=== PATIENT | male | born 1940 | race Caucasian/White ===

== ENCOUNTER → 2023-08-09 06:50 | Outpatient (REF) | payer MEDICARE, OTHER, SELFPAY ==
[2023-08-09 07:48] LABS: HDL Cholesterol 52 mg/dl; LDL Cholesterol, Calculated 39 mg/dl; Total Cholesterol 106 mg/dl (50-199); Triglyceride 78 mg/dl (10-149); Very Low Density Lipoprotein 15 mg/dl (0-30)
== END ==
LOC: REG 06:50
PROVIDERS: ATTENDING PHYSICIAN Internal Medicine
DX: E78.5 Hyperlipidemia, unspecified (principal); I65.22 Occlusion and stenosis of left carotid artery
CPT/HCPCS: 36415; 80061

== ENCOUNTER → 2023-09-07 10:50 | Outpatient (REF) | payer MEDICARE, OTHER, SELFPAY | LOC: RAD 10:50 | PROVIDERS: ATTENDING PHYSICIAN Internal Medicine; FAMILY PHYSICIAN Physician Assistant Medical | DX: I65.22 Occlusion and stenosis of left carotid artery (principal) | CPT/HCPCS: 93880 ==

== ENCOUNTER → 2023-09-23 06:41 | Outpatient (REF) | payer MEDICARE, OTHER, SELFPAY ==
[2023-09-23 08:38] LABS: Blood Urea Nitrogen 14 mg/dl (9-20); Calcium 9.6 mg/dl (8.4-10.2); Carbon Dioxide 29 mmol/L (22-30); Chloride 105 mmol/L (98-107); Glucose 90 mg/dl (70-99); Potassium 3.9 mmol/L (3.5-5.1); Sodium 141 mmol/L (135-145); eGFR > 60.00
== END ==
LOC: REG 06:41
PROVIDERS: ATTENDING PHYSICIAN Surgery Vascular Surgery; FAMILY PHYSICIAN Physician Assistant Medical
DX: I65.22 Occlusion and stenosis of left carotid artery (principal)
CPT/HCPCS: 36415; 80048

== ENCOUNTER → 2023-09-28 09:10 | Outpatient (REF) | payer MEDICARE, OTHER, SELFPAY | LOC: HWRAD 09:10 | PROVIDERS: ATTENDING PHYSICIAN Surgery Vascular Surgery; FAMILY PHYSICIAN Physician Assistant Medical | DX: I65.22 Occlusion and stenosis of left carotid artery (principal) | CPT/HCPCS: 70496; 70498; Q9967 ==

== ENCOUNTER → 2023-10-05 10:38 | Outpatient (REF) | payer MEDICARE, OTHER, SELFPAY | LOC: DHCBC/DCA 10:38 | PROVIDERS: ATTENDING PHYSICIAN Internal Medicine; FAMILY PHYSICIAN Physician Assistant Medical | DX: I48.19 Other persistent atrial fibrillation (principal); I10 Essential (primary) hypertension; I44.4 Left anterior fascicular block; I65.22 Occlusion and stenosis of left carotid artery; I77.810 Thoracic aortic ectasia; Z95.818 Presence of other cardiac implants and grafts; I44.0 Atrioventricular block, first degree | CPT/HCPCS: 78452; 93017; A9500; J2785 ==

== ENCOUNTER → 2023-10-07 13:50 | Outpatient (REF) | payer MEDICARE, OTHER, SELFPAY ==
[2023-10-07 17:38] LABS: % Basophils 0.9 % (0-2); % Eosinophils 1.1 % (0-6); % Immature Granulocytes 0.4 % (0-0.5); % Lymphocytes 14.2 % (20.5-51.1); % Monocytes 12.2 % (1.7-9.3); % Neutrophils 71.2 % (42.2-75.2); Absolute Eosinophils 0.1 10^3/uL (0-0.7); Absolute Lymphocytes 0.7 10^3/uL (1.2-3.4); Absolute Monocytes 0.6 10^3/uL (0.1-0.6); Absolute Neutrophils 3.3 10^3/uL (1.4-6.5); Hematocrit 43.5 % (39.0-52.0); Hemoglobin 14.7 g/dL (13.0-18.0); Mean Corp Hgb Conc. 33.8 g/dL (33.0-37.0); Mean Corpuscular Hgb 30.2 pg (27.0-31.0); Mean Corpuscular Volume 89.5 fL (80.0-94.0); Nucleated Red Blood Cells % 0 % (-); Platelet Count 145 10^3/uL (130-400); Red Blood Cell Count 4.86 10^6/uL (4.70-6.10); Red Cell Dist. Width 14.6 % (11.5-14.5); White Blood Cell Count 4.6 10^3/uL (4.8-10.8)
== END ==
LOC: RAD 13:50
PROVIDERS: Internal Medicine Cardiovascular Disease; ATTENDING PHYSICIAN Surgery Vascular Surgery; FAMILY PHYSICIAN Physician Assistant Medical
DX: Z13.6 Encounter for screening for cardiovascular disorders (principal); R29.898 Other symptoms and signs involving the musculoskeletal system; R94.39 Abnormal result of other cardiovascular function study
CPT/HCPCS: 36415; 76770; 85025; 93922; 93925

== ENCOUNTER 2023-10-11 13:08 | Day surgery (SDC) | payer MEDICARE, OTHER, SELFPAY ==
[2023-10-11] VITALS (11 sets, daily range): BP systolic 113–130; BP diastolic 62–74; BMI 28.3
[2023-10-11] MEDS: NSS 245 ML IV (14:16)
--- NOTE | 2023-10-11 16:01 | ITS.CL.CATH ---
Professional Development Instructor - Catheterization
Cardiac Catheterization
Procedure Report:
CARDIAC CATHETERIZATION REPORT
Date of Procedure: 10/11/2023
Referring: Mark Rueda MD, PhD
Indication: Abnormal preop stress test prior to elective CEA, patient denies cardiac symptoms
HEMODYNAMIC DATA
AO: 148/76
LV: 148/16
LEFT VENTRICULOGRAPHY: Normal segmental wall motion with EF 54%
CORONARY ANGIOGRAPHY
Dominance: Right
Left Main: Normal
LAD: 30% proximal LAD stenosis with a focal 50% mid LAD lesion immediately distal to the origin of D2. The remainder of the LAD proper has mild luminal irregularities. D1 and D2 are both moderate-sized vessels with mild luminal disease.
Circumflex: Mild luminal irregularities
RCA: 30% proximal RCA stenosis. The acute marginal branch becomes the RPDA. There is 30% distal RCA stenosis proximal to the moderate to large right posterolateral branch
Closure Device: None-the procedure was performed via the right radial artery. The Austin's test was normal prior to the procedure.
Radiation (mGy): 493
DAP (cm2.Gy): 44.5
Fluoroscopy time: 4.5 minutes
CONCLUSIONS
1: Systemic hypertension
2: Normal left ventricular function with EF 54%
3. Mild asymptomatic CAD as described
4. Continue risk factor modification
5. Proceed with CEA as planned
Copy to: Mark Rueda MD, PhD, Liza Estrella PA-C, Eze Mina MD
Ej Townsend MD, [facility]
== END 2023-10-11 18:00 | disposition home or self-care (01) ==
LOC: CATH 13:08
PROVIDERS: ATTENDING PHYSICIAN Internal Medicine Cardiovascular Disease
DX: I25.10 Atherosclerotic heart disease of native coronary artery without angina pectoris (principal); R94.39 Abnormal result of other cardiovascular function study; I48.91 Unspecified atrial fibrillation; I10 Essential (primary) hypertension; E78.5 Hyperlipidemia, unspecified; I65.22 Occlusion and stenosis of left carotid artery; Z85.828 Personal history of other malignant neoplasm of skin; Z87.891 Personal history of nicotine dependence; Z79.82 Long term (current) use of aspirin
CPT/HCPCS: 93458; C1894; Q9967

== ENCOUNTER 2023-10-18 06:04 | Inpatient (IN) | payer MEDICARE, OTHER, SELFPAY ==
[2023-10-12 09:43] LABS: % Basophils 0.8 % (0-2); % Eosinophils 1.3 % (0-6); % Immature Granulocytes 0.4 % (0-0.5); % Lymphocytes 12.5 % (20.5-51.1); % Monocytes 11.3 % (1.7-9.3); % Neutrophils 73.7 % (42.2-75.2); Absolute Eosinophils 0.1 10^3/uL (0-0.7); Absolute Lymphocytes 0.7 10^3/uL (1.2-3.4); Absolute Monocytes 0.6 10^3/uL (0.1-0.6); Absolute Neutrophils 3.9 10^3/uL (1.4-6.5); Hematocrit 44.5 % (39.0-52.0); Hemoglobin 14.9 g/dL (13.0-18.0); Mean Corp Hgb Conc. 33.5 g/dL (33.0-37.0); Mean Corpuscular Hgb 30.3 pg (27.0-31.0); Mean Corpuscular Volume 90.6 fL (80.0-94.0); Mean Platelet Volume 11.4 fL (7.4-10.4); Nucleated Red Blood Cells % 0 % (-); Platelet Count 152 10^3/uL (130-400); Red Blood Cell Count 4.91 10^6/uL (4.70-6.10); White Blood Cell Count 5.2 10^3/uL (4.8-10.8)
[2023-10-12 09:51] LABS: INR 1.06; PT 13.8 Sec (11.4-14.6)
[2023-10-12 09:52] LABS: APTT 29.1 Sec (23.4-35.0)
[2023-10-12 11:46] LABS: Blood Urea Nitrogen 13 mg/dl (9-20); Calcium 9.6 mg/dl (8.4-10.2); Carbon Dioxide 26 mmol/L (22-30); Chloride 102 mmol/L (98-107); Glucose 80 mg/dl (70-99); Sodium 138 mmol/L (135-145); eGFR > 60.00
[2023-10-12 12:28] VITALS: BMI 30.1
[2023-10-18] VITALS (11 sets, daily range): BP systolic 100–113; BP diastolic 51–63; BMI 27.3; BMI 27.9
[2023-10-18] MEDS: BACTROBAN NASAL 1 GRAM NASAL (06:50)
[2023-10-18] MEDS: PERIDEX 0.12% ORAL RINSE 15 ML PO (07:00)
[2023-10-18] MEDS: NSS 500 IV (07:15)
--- NOTE | 2023-10-18 07:25 | W.SUR.PREOP ---
Pre-Operative Surgical Note
-
I have examined this patient prior to the performance of the scheduled procedure.
The patient's condition is unchanged from the time of the current History and
Physical and the patient is able to undergo the scheduled procedure.
[2023-10-18 08:48] LABS: ACT-LR - POC 297 Seconds (116-155)
[2023-10-18 09:32] LABS: ACT-LR - POC 265 Seconds (116-155)
--- NOTE | 2023-10-18 10:09 | W.IMMPOSTOP ---
Surgical Immed Post Op Note
-
Primary Surgeon: Eze Mina III, MD
Assisting Surgeon: Indra Cazares MD
Pre-op Diagnosis: Left Carotid Stenosis
Post-op Diagnosis: Left Carotid Stenosis
Procedure Performed: Left Carotid Endarterectomy
Anesthesia Type: General
Specimen / Cultures: Carotid Plaque
Estimated Blood Loss: 5cc
Complications: NA
Operative Findings:
Neuro monitoring leads were placed. A 6cm incision was made along anterior border of SCM. Cautery dissection was performed down to level of carotid sheath, followed by blunt dissection to circumfrentially free vessels of interest. Control of common,
external, and internal carotid arteries with vessel loops. Systemic heparin was administered. The vagus and hypoglossal nerve were identified and undisturbed. A 5cm arteriotomy was made along the length of the common carotid artery and calcified
thrombus was removed using blunt dissection. A 8cm bovine pericardial patch was shaped to match the arteriotomy and sewn into place with a running double-ended 6-0 prolene. Repair sutures were placed as necessary following removal of vessel clamps.
Gel foam and thrombin were overlaid for additional hemostasis. Overlying SCM closed with a running 2-0 vicryl. Subcutaneous tissue closed with a running 3-0 vicryl. Skin closed with a running 4-0 monocryl and overlying skin glue. Immediate
postoperative neuro status was intact (BL upper extremities, lower extremities, tongue movements).
--- NOTE | 2023-10-18 10:31 | OR.RPT ---
Operative Report
Operative Report
Date of Operation: 10/18/2023
Pre Op Diagnosis: Asymptomatic left carotid artery stenosis
Post Op Diagnosis: Asymptomatic left carotid artery stenosis
Procedure: LEFT carotid endarterectomy with patch angioplasty using bovine pericardium
Surgeon: Eze Mina III, MD
Materials Mgmt Tech: Indra Cazares MD PGY-2
Anesthesia: General
Complications: None
History and Indications for Procedure: 83-year-old male with high-grade asymptomatic left carotid stenosis
Procedure in Detail: Gm Warner was correctly identified and placed supine on the operating table. After adequate induction of anesthesia the left neck was positioned, prepped and draped in the usual sterile fashion. Preoperative antibiotics
were administered. A timeout procedure was performed with the nursing and anesthesia staff confirming the patients identity as well as the nature and laterality of the procedure.
The carotid bifurcation was marked with ultrasound at the beginning of the case. The incision was planned accordingly. An incision was made along the anterior border of the left sternocleidomastoid muscle. Electrocautery was used to divide the
subcutaneous tissue and platysma. The carotid sheath was entered with sharp dissection. The internal jugular vein was retracted laterally. The vagus nerve was identified and protected throughout the case. The common carotid artery was identified at
the base of this incision and carefully encircled with a vessel loop. The patient was systemically heparinized. The dissection was continued distally towards the carotid bifurcation. The facial vein was skeletonized, ligated and divided between ties
and clips. The proximal external carotid artery was encircled with a vessel loop. The distal internal carotid artery was encircled with a vessel loop at a soft spot on the artery beyond the plaque. The hypoglossal nerve was identified and protected.
The internal vessel loop was secured followed by the common and external. An arteriotomy was made on the distal common carotid artery with an 11-blade. This was extended proximally and distally with Lyles scissors. The arteriotomy was extended
distally through the plaque to an area of normal appearing internal carotid artery. The distal vessel loop was replaced with a short tip hockey-stick type vascular clamp. An endarterectomy was performed with a Fairview elevator in the standard
fashion. The proximal extent of the plaque was transected with scissors. The distal end of the plaque in the internal carotid artery feathered very nicely with no distal intimal flap identified. The plaque extending into the external carotid artery
was everted. Once the plaque was fully removed the endarterectomy plane was irrigated with heparinized saline and any loose fronds of tissue were removed. A pre-cut piece of bovine pericardium was sewn in place using a running 6-0 Prolene suture.
Prior to the completion of the patch the common carotid was allowed to forward bleed and the external was allowed to back bleed. The area under the patch was irrigated with heparinized saline to remove any potential thrombus or debris. The
anastomosis was completed.
The external vessel loop was released first, followed by the common and then the internal. There was an excellent pulse in the distal internal carotid artery. An excellent quality Doppler signal in the distal internal carotid artery was also
confirmed. The patch suture line was closely inspected for hemostasis and was achieved. Protamine was administered. Hemostasis was achieved in the wound bed. The wound was irrigated with saline solution.
The wound was then closed in layers. Sterile dressings were applied. The patient awoke from anesthesia with no immediate neuro deficits and was taken to the PACU in stable condition.
Attestation: I was present and responsible for the entire procedure
Signed:
Eze Mina III, MD
[facility]
[phone] (cell)
[2023-10-18] MEDS: NSS 1000 IV ×2 (10:38→20:08)
[2023-10-18 11:03] LABS: Hematocrit 38.4 % (39.0-52.0); Hemoglobin 13.6 g/dL (13.0-18.0); Mean Corp Hgb Conc. 35.4 g/dL (33.0-37.0); Mean Corpuscular Hgb 31.2 pg (27.0-31.0); Mean Corpuscular Volume 88.1 fL (80.0-94.0); Mean Platelet Volume 11.9 fL (7.4-10.4); Platelet Count 144 10^3/uL (130-400); Red Blood Cell Count 4.36 10^6/uL (4.70-6.10); Red Cell Dist. Width 14.7 % (11.5-14.5); White Blood Cell Count 6.1 10^3/uL (4.8-10.8)
[2023-10-18 11:17] LABS: INR 1.17; PT 14.7 Sec (11.4-14.6)
[2023-10-18 11:18] LABS: APTT 29.3 Sec (23.4-35.0)
[2023-10-18 11:20] LABS: Blood Urea Nitrogen 20 mg/dl (9-20); Calcium 8.9 mg/dl (8.4-10.2); Carbon Dioxide 24 mmol/L (22-30); Chloride 106 mmol/L (98-107); Estimated Creatinine Clearance 77 ml/min; Glucose 120 mg/dl (70-99); Sodium 138 mmol/L (135-145); eGFR > 60.00
[2023-10-18] MEDS: NEO-SYNEPHRINE 250 IV (11:20)
--- NOTE | 2023-10-18 11:52 | CON.INTV ---
Consultation
Consultation Request
Date/Time Consultation Requested: 10/17
Date/Time Consultation Performed: 10/17
Reason for Consultation: Critical care
Medical History
-
History of Present Illness:
History obtained from the chart, outpatient records and the patient. Patient is a pleasant 83-year-old male with history of hypertension, hyperlipidemia, distant tobacco history who presents with left carotid artery stenosis. Patient follows
cardiology. He is now status post left carotid endarterectomy without complication. We are asked to help from critical care standpoint.
Preadmission, he denies shortness of breath, chest pain, nausea, abdominal pain, diarrhea, falls, syncope. He walks without difficulty.
.
PMH: Hypertension, hyperlipidemia, elevated PSA, history of basal cell skin cancer, left anterior fascicular block. History of right knee replacement, Watchman procedure, left knee replacement, appendectomy
Past Medical History
Past Medical History: None (See above)
Past Surgical History: None (See above)
Social History
Tobacco: Former Smoker (Less than 5-pack-year, quit 1959)
Alcohol: Occasional
Drug: None
Living: Alone
Family History
Family History: Other (Patient states both parents from alcoholism. 1 brother from esophageal cancer in the seventh decade. 2 sisters healthy. 2 children healthy)
Allergies / Home Medications
Allergies
Allergy/AdvReac Type Severity Reaction Status Date / Time
No Known Allergies Allergy Verified 10/06/23 11:48
Home Medications
�Medication �Instructions �Recorded �Confirmed �Last Taken �Type
pantoprazole 40 mg tablet,delayed 40 mg PO Daily #90 tabs 06/27/20 10/18/23 10/17/23 05:00 Rx
release
ezetimibe 10 mg tablet (Zetia) 10 mg PO DAILY High cholesterol 11/10/21 10/18/23 10/17/23 05:00 History
dofetilide 500 mcg capsule 500 mcg PO Q12 #60 caps 11/13/21 10/18/23 10/18/23 Rx
rosuvastatin 40 mg tablet 40 mg PO DAILY #30 tabs 11/13/21 10/18/23 10/17/23 05:00 Rx
amlodipine 5 mg tablet 10 mg PO DAILY Blood pressure 03/08/23 10/18/23 10/18/23 History
aspirin 81 mg chewable tablet 81 mg PO DAILY Blood Clot 03/08/23 10/18/23 10/18/23 History
Prevention/Tx
lisinopril 20 mg tablet 40 mg PO DAILY Blood pressure 03/08/23 10/18/23 10/18/23 05:00 History
Review of Systems
-
All other systems: Negative unless noted
Vitals / Labs / Diagnostic Testing
Vital Signs
Temp Pulse Resp BP Pulse Ox
98.6 F 46 12 113/56 97
10/18/23 11:00 10/18/23 11:45 10/18/23 11:45 10/18/23 11:30 10/18/23 11:45
Lab Data
10/18/23 10:31
10/18/23 10:31
Laboratory Results
10/18/23
10:31
PT 14.7 H
INR 1.17
APTT 29.3
Diagnostic Testing:
Physical Exam
-
HEENT: Normocephalic, Other (Left carotid incision intact) and Other (Upper extremity A-line)
Cardiovascular: S1/S2, Regular Rhythm, Murmur (n), Rub (n), Peripheral Edema (n) and Other (Sequentials in place)
Respiratory: Wheeze (n), Rales (n), Rhonchi (n) and Non-Labored Respirations
GI: Soft, Non Distended and Non Tender
Neurology: Awake, Alert, Oriented and No Motor Deficits (Moves all extremities, cranial nerves intact)
Skin: Good Color
General: Comfortable (Conversing)
Assessment
-
83-year-old male with history of left carotid stenosis with progression, hypertension, hyperlipidemia, distant tobacco history presents with left carotid endarterectomy postoperatively
S/p LCEA 10/18/2023
Abnormal stress test
Mild coronary disease per catheterization
Left upper lobe nodule per imaging (my review)
Mild dilated ascending aorta, 4.2 cm
Conditions present prior to admission
History of atrial fibrillation, status post ablation 2021
LAFB
Hypertension/hyperlipidemia
History of basal cell skin cancer
History of appendectomy
Less than 14-[id number]-ltts history of smoking, quit 1960s
Plan/recommendations
At this time, patient remains critically ill but stable. He is without symptoms
Left carotid incision intact
Neurological exam intact, cranial nerves intact
Preoperative chest x-ray, EKG noted, stable and without acute findings
Patient had cardiology preoperative clearance, requiring catheterization which was unremarkable
Moving forward
Continue with management per vascular surgery.
Minimal blood loss noted per postoperative report
Neurological exam normal
Blood pressure stable at this time
Follow blood pressure closely, address per vascular parameters
There is a small left upper lobe nodule on his recent neck CT image #33, 4 mm
This was not present on CT chest per my review [address] chest in 1 year. This was reviewed with the patient
IV fluids
Antiplatelet therapy
Resume outpatient oral medications
Reviewed with critical care nursing. Will follow
TCCT 31 min
[2023-10-18] MEDS: TYLENOL 650 MG PO (12:09)
--- NOTE | 2023-10-18 12:23 | PTCARENOTE ---
patient received from PACU on room air, drowsy. pulse oximeter 88. monitor sinus bradycardic. rate 40's-50's. prolonged QT. hypotensive, nataliya initiated per work list to keep MAP 70-90. left incision intact, no signs hematoma or bleeding. arterial
line with good blood return and cuff correlation. lungs with diminished placed on 2 liters nasal cannula. abdomen soft. denies nausea. declines need to void. oriented to room, call ty in reach. c/o left neck discomfort, declines to take anything
stronger than tylenol. administered per patient request
--- NOTE | 2023-10-18 16:40 | PTCARENOTE ---
patient reassessed. new orders to keep systolic BP 100-165 noted. nataliya wean per work list. patient satisfied with pain relief from tylenol. bladder scan as noted. eating dinner without nausea. neuro assessments unchanged
--- NOTE | 2023-10-18 19:30 | PTCARENOTE ---
on assessment pt AAOx3, denies pain, SB on monitor, L radial Nadia in place and zeroed, 2L NC, lungs diminished, denies SOB, L neck incision with dermabond C/D/I, ice applied per order. neuro checks Q1H. call ty in reach.
[2023-10-18] MEDS: TIKOSYN 500 MCG PO (20:08)
[2023-10-18] MEDS: HEPARIN 5000 UNITS SC (20:08)
--- NOTE | 2023-10-19 00:13 | PTCARENOTE ---
no changes from prior assessment, denies pain, neuro checks WNL, call ty in reach.
--- NOTE | 2023-10-19 04:00 | PTCARENOTE ---
no changes from prior assessment, q1h neuro checks WNL, call ty in reach.
[2023-10-19 04:28] LABS: Hematocrit 39.6 % (39.0-52.0); Hemoglobin 13.5 g/dL (13.0-18.0); Mean Corp Hgb Conc. 34.1 g/dL (33.0-37.0); Mean Corpuscular Hgb 30.9 pg (27.0-31.0); Mean Corpuscular Volume 90.6 fL (80.0-94.0); Mean Platelet Volume 11.7 fL (7.4-10.4); Platelet Count 151 10^3/uL (130-400); Red Blood Cell Count 4.37 10^6/uL (4.70-6.10); Red Cell Dist. Width 14.7 % (11.5-14.5); White Blood Cell Count 11.9 10^3/uL (4.8-10.8)
[2023-10-19 04:40] LABS: INR 1.12; PT 14.2 Sec (11.4-14.6)
[2023-10-19 04:41] LABS: APTT 29.2 Sec (23.4-35.0)
[2023-10-19 04:54] LABS: Blood Urea Nitrogen 14 mg/dl (9-20); Calcium 9.4 mg/dl (8.4-10.2); Carbon Dioxide 23 mmol/L (22-30); Chloride 107 mmol/L (98-107); Estimated Creatinine Clearance 90 ml/min; Glucose 102 mg/dl (70-99); Sodium 138 mmol/L (135-145); eGFR > 60.00
[2023-10-19 06:00] VITALS: BMI 29.1
--- NOTE | 2023-10-19 07:13 | W.PN.INTV ---
Today's Communication / Plan
Recommendations
Ambulate
Antiplatelet therapy per vascular surgery
Small left upper lobe nodule noted on head and neck CT imaging. Smoking history noted
Would recommend CT chest in 1 year. This was reviewed with the patient and information left in chart
Disposition efforts
Assessment
-
83-year-old male with history of left carotid stenosis with progression, hypertension, hyperlipidemia, distant tobacco history presents with left carotid endarterectomy postoperatively
S/p LCEA 10/18/2023
Abnormal stress test
Mild coronary disease per catheterization
Left upper lobe nodule per imaging (my review)
Mild dilated ascending aorta, 4.2 cm
Conditions present prior to admission
History of atrial fibrillation, status post ablation 2021
LAFB
Hypertension/hyperlipidemia
History of basal cell skin cancer
History of appendectomy
Less than 34-bgyq-paok history of smoking, quit 1960s
Plan/recommendations
At this time, patient remains stable
Left carotid incision intact
Neurological exam intact, cranial nerves intact
Patient ambulating without difficulty
Preoperative chest x-ray, EKG noted, stable and without acute findings
Patient had cardiology preoperative clearance, requiring catheterization which was unremarkable
Moving forward
Continue with management per vascular surgery.
Neurological exam normal
Blood pressure stable at this time, off pressors
There is a small left upper lobe nodule on his recent neck CT image #33, 4 mm
This was not present on CT chest per my review [address] chest in 1 year. This was reviewed with the patient
IV fluids
Antiplatelet therapy
Resume outpatient oral medications
Disposition efforts noted
We will sign off. Please call with questions
Subjective Dataa
Subjective Data
Date of Service:
Date of Service: October 19, 2023
Subjective:
Patient is without complaints. Ambulating without difficulty. Left carotid incision intact. Off pressors
Objective Data
Data Reviewed
Vital Signs / I&O / Oxygen:
Vital Signs
Temp Pulse Resp BP Pulse Ox
97.5 F 50 14 113/56 95
10/19/23 06:05 10/19/23 05:30 10/19/23 05:30 10/18/23 11:30 10/19/23 05:30
Intake and Output
10/18/23 10/19/23 10/20/23
06:59 06:59 06:59
Intake Total 2025
Output Total 1140 / 1140
Balance 886 / 886
SaO2 95
Nasal Cannula flow liters per 1
minute
Physical Exam
General: Comfortable
HEENT: Normocephalic, Anicteric and Other (Left carotid incision intact)
Cardiovascular: S1-S2, Regular Rhythm, Murmur (n), Rub (n) and Calf Tenderness (n)
Respiratory: Wheeze (n), Crackles (n) and Rhonchi (n)
GI: Soft, Non Distended and Non Tender
Neurology: Awake, Alert and No Motor Deficits (Ambulating without difficulty, neurological exam nonfocal)
Skin: Cyanosis (n)
Labs/Micro/Reports
Lab Data
10/19/23 04:16
10/19/23 04:16
Laboratory Results
10/18/23 10/19/23
10:31 04:16
PT 14.7 H 14.2
INR 1.17 1.12
APTT 29.3 29.2
--- NOTE | 2023-10-19 07:33 | W.PN.VS ---
Addendum entered and electronically signed by Wil Anthony MD 10/19/23 07:39:
Seen and examined with REDD Mathur. Agree with findings as noted below. Patient without significant complaints. Left neck incision is clean dry and intact. No hematoma. Neurologically no focal deficits, moves all extremities well. Tongue midline.
Plan/as discussed and noted below.
Original Note:
Today's Communication / Plan
-
Patient seen and examined at bedside with Dr. Wil Anthony, below plan reviewed with attending
Assessment/Plan
-
Assessment: 83-year-old male POD #1 left carotid endarterectomy
Plan:
Discontinue arterial line
Discontinue IV fluids
OOB to chair with progression ambulation as tolerated
Possible discharge later this afternoon pending tolerance of ambulation and continued progress
Subjective Data
-
Date of Service: October 19, 2023
Patient seen and examined at bedside, offers no complaints. Reports adequate postoperative pain management. Denies headache, nausea, vomiting, fever, and chills. Reports tolerating p.o. diet.
Objective Data
-
Vital Signs
Temp Pulse Resp BP Pulse Ox
97.1 F 50 14 113/56 95
10/19/23 07:00 10/19/23 05:30 10/19/23 05:30 10/18/23 11:30 10/19/23 05:30
Intake and Output
10/18/23 10/19/23 10/20/23
06:59 06:59 06:59
Intake Total 2025
Output Total 1140 / 1140
Balance 886 / 886
Intake:
Oral fluids 270 / 270
IV fluids (Total) 175 / 175
NSS 0.9% 150 / 150
Neosynephrine 86 / 86
Nss 1,000 ml @ 80 mls/hr IV . 1520 / 1520
[id number] SHU Rx#:[id number]
Output:
Urine, Voided 1140 / 1140
Lab Results
10/19/23 04:16
10/19/23 04:16
Calcium 9.4 mg/dl (8.4-10.2) 10/19/23 04:16
Magnesium 2.0 mg/dl (1.6-2.3) 10/18/23 10:31
Physical Exam
-
No apparent distress, resting bed comfortably
Face symmetrical, tongue midline, left neck surgical incision CDI with intact Exofin glue, no evidence of hematoma
No tachycardia
No dyspnea on room air
Bilateral upper and lower extremities with equal strength and movement spontaneously and to command
[2023-10-19] MEDS: PROTONIX 40 MG PO (08:02)
[2023-10-19] MEDS: LOW STRENGTH ASPIRIN 81 MG PO (08:02)
[2023-10-19] MEDS: ZETIA 10 MG PO (08:02)
[2023-10-19] MEDS: NORVASC 10 MG PO (08:03)
[2023-10-19] MEDS: TIKOSYN 500 MCG PO (08:03)
[2023-10-19] MEDS: CRESTOR 40 MG PO (08:03)
[2023-10-19 08:05] VITALS: BP 103/53
[2023-10-19] MEDS: ZESTRIL 40 MG PO (08:05)
[2023-10-19] MEDS: HEPARIN 5000 UNITS SC (08:05)
--- NOTE | 2023-10-19 08:18 | PTCARENOTE ---
0700 patient received in bed. AAO x3. Left Radial A/line. Left neck surgical incision;
AAO x3; Denies pain. SB 53-59 ; BP 146/52 MAP 81 via A/line; Neuro check WNL; Abdomen soft non-tender . Voiding in a urine carlos clear; Left neck surgical incision well approximated; swelling mild, tender to touch but pt reports of pain well
managed. 08:15 left A/line removed. Appetite good no problem swallowing. IVF D/C call ty within reach. All AM meds adm
[2023-10-19 09:24] VITALS: BP 107/56
[2023-10-19 09:27] VITALS: BP 112/56
[2023-10-19 09:37] VITALS: BP 107/52
[2023-10-19 09:38] VITALS: BP 106/57
--- NOTE | 2023-10-19 09:47 | PTCARENOTE ---
BP laying via left upper arm 112/53 HR 59; sitting 107/52 ; standing 106/57 Denies dizziness. Ambulated around unit without difficulties independently .
--- NOTE | 2023-10-19 10:11 | W.DS.TRANS ---
DC Summary - Test Desk Supervisor
-
Discharge Instructions:
Sleep Apnea Risk Intermediate
Discharge Diagnosis/Procedures Left carotid endarterectomy
Diet As tolerated
Activity No strenuous activity
Driving Restrictions Not until seen by your Dr
Bathing Restrictions OK to Shower
Instructions:
Stand-Alone Forms: DC Instr - Vascular OR
Changes to Home Medications: No
Discharge Medications:
DC Medications w/original date entered in [facility]
pantoprazole 40 mg tablet,delayed release 40 mg PO Daily #90 tabs 06/27/20
ezetimibe 10 mg tablet (Zetia) 10 mg PO DAILY High cholesterol 11/10/21
dofetilide 500 mcg capsule 500 mcg PO Q12 #60 caps 11/13/21
rosuvastatin 40 mg tablet 40 mg PO DAILY #30 tabs 11/13/21
amlodipine 5 mg tablet 10 mg PO DAILY Blood pressure 03/08/23
aspirin 81 mg chewable tablet 81 mg PO DAILY Blood Clot Prevention/Tx 03/08/23
lisinopril 20 mg tablet 40 mg PO DAILY Blood pressure 03/08/23
Home Medication Changes
Pending Results: No
--- NOTE | 2023-10-19 10:12 | W.DCSUMMARY ---
Discharge Summary
Discharge Data
Date of Admission: 10/18/23
Date of Discharge: 10/19/23
-
Pending Results: No
Hospital Course
Attending: Eze Mina III, MD
Consultants: Pulmonary medicine
Allergies: NKDA
Procedure with date: LEFT carotid endarterectomy with patch angioplasty using bovine pericardium, by Dr. Eze Mina III on 10/18/2023
History of present illness: The patient is an 83-year-old male with multiple medical conditions including: carotid stenosis, hypertension, hyperlipidemia, basal cell carcinoma, elevated PSA, atrial fibrillation, and hypertension. Patient presented
on 10/18/2023 for scheduled procedure with Dr. Eze Mina III. Patient presented at baseline health with no reports of recent illness or trauma.
Hospital Course: Briefly, the patient underwent scheduled left carotid endarterectomy without complications, and recovered in PACU. Following recovery phase one and two patient was transferred to intensive care unit per protocol for continued
hemodynamic monitoring. Clinical Liaison consulted to aid in medical management from a critical care perspective. POD #1 (10/19/2023) Patient neurologically intact, face symmetrical, and tolerating PO diet. Surgical left neck incision clean, dry, and
intact with suture line well approximated and soft. No evidence of hematoma. Arterial line and IV fluids discontinued. Patient able to ambulate without difficulty or incident. Patient stable for discharge to home.
Prescriptions and follow up appointment are included in the DC summary medicine technologist note. All instructions were given to the patient in both written and verbal form and the patient expressed understanding.
Discharge Plan
-
Patient Disposition: Home (Routine Discharge)
Discharge Diagnosis/Procedures: Left carotid endarterectomy
Condition: Good
Diet: As tolerated
Activity: No strenuous activity
Driving Restrictions: Not until seen by your Dr
Bathing Restrictions: OK to Shower
Activity Restrictions/Additional Instructions:
If you experience severe constant headache, weakness to an arm or leg, change in vision, trouble speaking or any stroke-like symptom, call 911 immediately
If you experience swelling, increased bruising, drainage from neck site, or fever, please call the office
Stand Alone Forms: DC Instr - Vascular OR
Referrals:
Liza Estrella PA-C [Family Provider] -
Marine Mercado CRNP [Specified Professional Personl] - 11/01/23 8:15 am
Prescriptions:
Continued
pantoprazole 40 MG tablet,delayed release (DR/EC)
40 mg PO Daily Qty: 90 3RF
ezetimibe [Zetia] 10 mg Tablet
10 mg PO DAILY
dofetilide 500 mcg Capsule
500 mcg PO Q12 Qty: 60 3RF
rosuvastatin 40 mg Tablet
40 mg PO DAILY Qty: 30 0RF
aspirin 81 mg Tablet,Chewable
81 mg PO DAILY
Hold Instructions: Resume on 05/03/23.
lisinopril 20 MG tablet
40 mg PO DAILY
Rx Instructions:
HOLD if systolic blood pressure <130 while on Oxycodone.
amlodipine 5 MG tablet
10 mg PO DAILY
Rx Instructions:
HOLD if systolic blood pressure <130 while on Oxycodone.
Discharge Orders:
Discharge Patient (As Directed); Ordered 10/19/23
Ordered By: Sofi Mathur
Discharge Date and Time
Print Language: KYRGYZ
--- NOTE | 2023-10-19 10:23 | CM ---
CM following re: discharge planning.
Discussed in Rounds, reviewed pt's chart. ,et with pt.
Pt is an 83 year old male, admitted with primary dx of POD #1 left carotid endarterectomy.
Pt reports he lives alone in a [address], no steps to enter, has 2 supportive children, daughter lives locally and helps as needed. Pt reports he has 2 dogs. pt reports he has a walker and a cane, does not use them, had [facility] in the past after knee
replacement. 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
Discharge order noted. Pt is aware, expressed his agreement with discharge. IMM reviewed, placed on chart, pt has a copy. Pt stated his daughter will transport home.
PCP: Liza Estrella
Pharmacy: [facility]
D/C plan: home no needs. Daughter to transport.
--- NOTE | 2023-10-19 12:25 | PTCARENOTE ---
patient tolerated lunch without difficulties. Peripheral lines RT x2 removed, dressing applied. All d/c instructions given to patient. pt aware of f/u appointment and f/u. pt confirmed full understanding of all d/c instructions. pt picked up by his
daughter. pt taking to car via w/c
== END 2023-10-19 12:35 | disposition home or self-care (01) | DRG 39 ==
LOC: ICU 06:04
PROVIDERS: Nurse Practitioner; ADMITTING PHYSICIAN Surgery Vascular Surgery; CONSULT PHYSICIAN Internal Medicine Critical Care Medicine; FAMILY PHYSICIAN Physician Assistant Medical
PROC: 03UJ0KZ Supplement Left Common Carotid Artery with Nonautologous Tissue Substitute, Open Approach (ICD-10-PCS; 2023-10-18)
PROC: 03CJ0ZZ Extirpation of Matter from Left Common Carotid Artery, Open Approach (ICD-10-PCS; 2023-10-18)
DX: I65.22 Occlusion and stenosis of left carotid artery (principal); I10 Essential (primary) hypertension; E78.5 Hyperlipidemia, unspecified; I48.91 Unspecified atrial fibrillation; I25.10 Atherosclerotic heart disease of native coronary artery without angina pectoris; R97.20 Elevated prostate specific antigen [PSA]; R91.1 Solitary pulmonary nodule; Z87.891 Personal history of nicotine dependence; Z79.82 Long term (current) use of aspirin; Z85.828 Personal history of other malignant neoplasm of skin; Z79.899 Other long term (current) drug therapy
CPT/HCPCS: 35301; 36415; 71045; 71046; 80048; 83735; 85025; 85027; 85610; 85730; 87070; 93005; 95938; 95941; 95955

== ENCOUNTER → 2023-12-05 08:51 | Outpatient (REF) | payer MEDICARE, OTHER, SELFPAY | LOC: RAD 08:51 | PROVIDERS: ATTENDING PHYSICIAN Registered Nurse; FAMILY PHYSICIAN Physician Assistant Medical | DX: I65.29 Occlusion and stenosis of unspecified carotid artery (principal); I65.22 Occlusion and stenosis of left carotid artery | CPT/HCPCS: 93880 ==

== ENCOUNTER → 2024-05-15 06:32 | Outpatient (REF) | payer MEDICARE, OTHER, SELFPAY ==
[2024-05-15 07:27] LABS: % Basophils 1.2 % (0-2); % Eosinophils 1.9 % (0-6); % Immature Granulocytes 0.2 % (0-0.5); % Lymphocytes 14.4 % (20.5-51.1); % Monocytes 11.2 % (1.7-9.3); % Neutrophils 71.1 % (42.2-75.2); Absolute Basophils 0.1 10^3/uL (0-0.2); Absolute Eosinophils 0.1 10^3/uL (0-0.7); Absolute Lymphocytes 0.6 10^3/uL (1.2-3.4); Absolute Monocytes 0.5 10^3/uL (0.1-0.6); Absolute Neutrophils 2.9 10^3/uL (1.4-6.5); Hematocrit 49.7 % (39.0-52.0); Hemoglobin 17.2 g/dL (13.0-18.0); Mean Corp Hgb Conc. 34.6 g/dL (33.0-37.0); Mean Corpuscular Hgb 31.4 pg (27.0-31.0); Mean Corpuscular Volume 90.7 fL (80.0-94.0); Mean Platelet Volume 11.4 fL (7.4-10.4); Nucleated Red Blood Cells % 0 % (-); Platelet Count 155 10^3/uL (130-400); Red Blood Cell Count 5.48 10^6/uL (4.70-6.10); Red Cell Dist. Width 13.3 % (11.5-14.5); White Blood Cell Count 4.1 10^3/uL (4.8-10.8)
[2024-05-15 07:38] LABS: ALT (SGPT) 36 U/L (0-50); AST (SGOT) 29 U/L (17-59); Albumin 4.6 g/dl (3.5-5.0); Alkaline Phosphatase 58 U/L (38-126); Blood Urea Nitrogen 14 mg/dl (9-20); Calcium 9.9 mg/dl (8.4-10.2); Carbon Dioxide 31 mmol/L (22-30); Chloride 100 mmol/L (98-107); Glucose 98 mg/dl (70-99); HDL Cholesterol 61 mg/dl; LDL Cholesterol, Calculated 53 mg/dl; Potassium 4.1 mmol/L (3.5-5.1); Sodium 141 mmol/L (135-145); Total Bilirubin 0.9 mg/dl (0.2-1.3); Total Cholesterol 127 mg/dl (50-199); Triglyceride 68 mg/dl (10-149); Very Low Density Lipoprotein 13 mg/dl (0-30); eGFR > 60.00
== END ==
LOC: REG 06:32
PROVIDERS: ATTENDING PHYSICIAN Internal Medicine; FAMILY PHYSICIAN Physician Assistant Medical
DX: E78.5 Hyperlipidemia, unspecified (principal)
CPT/HCPCS: 36415; 80053; 80061; 85025

== ENCOUNTER → 2024-07-26 09:05 | Outpatient (REF) | payer MEDICARE, OTHER, SELFPAY | LOC: RAD 09:05 | PROVIDERS: ATTENDING PHYSICIAN Surgery Vascular Surgery | DX: I65.22 Occlusion and stenosis of left carotid artery (principal) | CPT/HCPCS: 93880 ==

== ENCOUNTER 2024-09-14 01:13 | Inpatient (IN) | payer MEDICARE, OTHER, SELFPAY ==
[2024-09-13] VITALS (15 sets, daily range): BP systolic 78–118; BP diastolic 47–63
[2024-09-13 19:49] LABS: Hematocrit 51.2 % (39.0-52.0); Hemoglobin 18.1 g/dL (13.0-18.0); Mean Corp Hgb Conc. 35.4 g/dL (33.0-37.0); Mean Corpuscular Hgb 31.4 pg (27.0-31.0); Mean Corpuscular Volume 88.7 fL (80.0-94.0); Mean Platelet Volume 11.7 fL (7.4-10.4); Platelet Count 167 10^3/uL (130-400); Red Blood Cell Count 5.77 10^6/uL (4.70-6.10); Red Cell Dist. Width 13.6 % (11.5-14.5)
[2024-09-13 20:03] LABS: Blood Urea Nitrogen 64 mg/dl (9-20); Calcium 9.5 mg/dl (8.4-10.2); Carbon Dioxide 18 mmol/L (22-30); Chloride 98 mmol/L (98-107); Glucose 137 mg/dl (70-99); Sodium 139 mmol/L (135-145); eGFR 13.05
[2024-09-13 20:14] LABS: Absolute Neutrophils -Man Diff 3.7 10^3/uL (1.4-6.5); Atypical Lymphocytes 2 %; Band Neutrophils 15 % (0-3); Lymphocytes 8 % (20-51); Metamyelocytes 4 % (-); Monocytes 10 % (2-9); Myelocytes 1 % (-); Normal RBC Morphology Yes; Platelets Checked Yes; Segmented Neutrophils 60 % (42-75); Total Cells Counted 100
--- NOTE | 2024-09-13 20:22 | ED.GENMED ---
History of Present Illness
<Dara Velazquez NP - Last Filed: 09/14/24 22:06>
General
Chief Complaint: Abdominal Symptoms
Source: patient
Exam Limitations: none
Time Seen by Provider: 09/13/24 20:11
Nursing documentation reviewed up to this point in time: agreed with
History of Present Illness
History of Present Illness:
Patient to ED with complaint of n/v/d. SYmptoms started last PM. Taking OTC antidiarrheal medication without improvement. Brought to ED by daughter for eval.
Past History
<Dara Velazquez NP - Last Filed: 09/14/24 22:06>
Past History
ED Past Medical History: Arrthythmia (AF), CVA (TIA), GERD, HTN and Hypercholesterolemia
ED Past Surgical History: Appendectomy, Orthopedic and Other (Appendectomy, Repair R knee, Amor. Cataracts)
Social History
Tobacco: Non-smoker
Alcohol: None
Drug: None
Personal:
Living: with family
Employment: Employed
Family History
Family History: Other (n/c)
Review of Systems
<Dara Velazquez NP - Last Filed: 09/14/24 22:06>
Review of Systems
Allergies reviewed?: Yes
All Other Systems: ROS reviewed and negative except as documented in HPI and ROS
Constitutional: Reports no symptoms
EENT: Reports no symptoms
Respiratory: Reports no symptoms
Cardiac: Reports no symptoms
ABD/GI: Reports nausea, vomiting and diarrhea
: Reports no symptoms
Musculoskeletal: Reports no symptoms
Skin: Reports no symptoms
Neurological: Reports weakness
Psychiatric: Reports no symptoms
Phy Exam
<Dara Velazquez NP - Last Filed: 09/14/24 22:06>
General Physical Exam
General Presentation: moderate distress
General age: appears stated age
General Skin: warm and dry
General Habitus: normal
General Mental: alert
Cardiovascular Exam
Cardiovascular Exam: regular rate/rhythm and no edema
Pulmonary Exam
Pulmonary Exam: lungs clear and no respiratory distress
Gastrointestinal Exam
Gastrointestinal Exam: normal bowel sounds, soft, no organomegaly, no pulsatile mass, non distended and no cva tenderness
Palpation: left upper quadrant: Mild tenderness and right upper quadrant: Mild tenderness
Musculoskeletal Exam
Musculoskeletal Exam: full ROM and neuro vasc intact
Skin Exam
Skin Exam: normal color and warm/dry
Psychiatric Exam
Psychiatric Exam: normal mood/affect
Course
<Dara Velazquez RESERVATIONIST - Last Filed: 09/14/24 22:06>
Orders/Labs/Results
Orders:
Orders
09/13/24 19:36
Basic Metabolic Panel Urgent
Complete Blood Count/With Diff Urgent
Manual Differential Urgent
09/13/24 20:21
0.9% Sodium Chloride 1000 ml [Nss] 1,000 ml IV BOLUS
09/13/24 20:36
Ondansetron Injectable [Zofran] 4 mg .ROUTE .STK-MED ONE
09/13/24 20:38
Ondansetron Injectable [Zofran] 4 mg IV NOW STA
09/13/24 20:39
Bladder Scan- Treatment ONCE
09/13/24 20:40
CT Abd/pel Without Iv Or Oral Urgent
Comment:
Reason For Exam: Vomiting, diarrhea
09/13/24 20:42
Bladder Scan- Treatment ONCE
09/13/24 22:18
Norovirus by PCR Urgent
LINDA Source: Feces/Stool
Specimen Description:
Date Specimen was Collected: 09/13/24
Time Specimen was Collected: 21:52
STOOL [C difficile Antigen & Toxins] Urgent
LINDA Source: Feces/Stool
Specimen Description:
Date Specimen was Collected: 09/13/24
Time Specimen was Collected: 21:52
Stool Culture Urgent
LINDA Source: ST
Specimen Description:
Date Specimen was Collected: 09/13/24
Time Specimen was Collected: 21:52
Comment: ADDED
09/13/24 22:28
Admit/Transfer Patient As Directed
Co-Sign Provider:
Level of Care: Inpatient admission
Assign to:: Medical/Surgical
Physician / Group: marlene
Diagnosis: viral gastroenteritis
Reason for Hospitalization: viral gastroenteritis
Expected length of stay greater than two midnights?: Yes
ELOS- Estimated Length of Stay in days: 2
I certify the patient meets the requirements for IP care: Yes
PRN Pain Medication Management As Directed
May give lesser potent ordered pain med per pt: Yes
preference::
Protocol:: Medication orders for pain may be administered in a
manner that supports deferring to patient preference
when the pt is:
- Requesting an ordered lesser potent pain medication.
Least to most potent pain medications are defined
as: acetaminophen < NSAID < tramadol < opioids
(morphine, oxycodone, hydromorphone).
- Requesting a lesser dose of the same medication IF
ORDERED.
- Requesting a less intrusive route of administration
if both routes are prescribed by the provider (PO <
IV).
09/13/24 22:29
Code Status As Directed
Resuscitation Status: Full Code
09/13/24 22:48
Acetaminophen [Tylenol] 650 mg PO Q6HPRN PRN mild pain
09/13/24 23:00
Flush (0.9% Sodium Chloride) [Flush (Nss)] See Dose Instructions IV PER PROTOCOL
09/13/24 23:21
Add On - Microbiology Urgent
Tests Added?: stool culture
09/13/24 23:56
0.9% Sodium Chloride 1000 ml [Nss] 1,000 ml IV 150 mls/hr
09/14/24 02:33
Ondansetron Injectable [Zofran] 4 mg IV Q6HPRN PRN
09/14/24 02:33
Activity As Directed
Activity Level: As Tolerated
Bladder Scan As Directed
Follow Bladder Retention/Intermittent Cath Algorithm?: Yes
PRN if no void in __ hours: 6
Frequency: Per Retention Algorithm
If Bladder Scan Result >: 400
then:: Straight cath
I/O [Intake/ Output] As Directed
Frequency: q12h
Straight Cath As Directed
Frequency: Per Retention Algorithm
Additional Instructions: straight cath as needed per acute urinary retention algorithm for 24 hrs
Additional Instructions: for bladder scan greater than 400 mL
Vital Signs As Directed
Frequency: Per unit guidelines
DX Deep Vein Thrombosis Video Routine
09/14/24 06:06
Complete Blood Count/With Diff IN AM
Comprehensive Metabolic Panel IN AM
09/14/24 08:00
Amlodipine [Norvasc] 10 mg PO DAILY
Aspirin Chewable [Low Strength Aspirin] 81 mg PO DAILY
Dofetilide [Tikosyn] 500 mcg PO Q12
Ezetimibe [Zetia] 10 mg PO DAILY
Heparin 5,000 units SC Q12
Pantoprazole [Protonix] 40 mg PO Daily
Rosuvastatin Calcium [Crestor] 40 mg PO DAILY
Abnormal Lab Results
09/13/24
19:36
Hgb 18.1 H g/dL
(13.0-18.0)
MCH 31.4 H pg
(27.0-31.0)
MPV 11.7 H fL
(7.4-10.4)
Band Neutrophils 15 H %
(0-3)
Lymphocytes (Manual) 8 L %
(20-51)
Monocytes (Manual) 10 H %
(2-9)
Carbon Dioxide 18 L mmol/L
(22-30)
BUN 64 H mg/dl
(9-20)
Creatinine 4.3 H* mg/dL
(0.7-1.3)
Glucose 137 H mg/dl
(70-99)
09/13/24 19:36
09/13/24 19:36
Vital Signs
Initial and Last Documented VS:
Initial Vital Signs
Temp Pulse Resp BP Pulse Ox
97.5 F 98 20 78/47 98
09/13/24 19:16 09/13/24 19:16 09/13/24 19:16 09/13/24 19:16 09/13/24 19:16
Last Documented Vital Signs
Temp Pulse Resp BP Pulse Ox
100.3 F 97 18 92/42 96
09/14/24 19:08 09/14/24 19:08 09/14/24 19:08 09/14/24 19:08 09/14/24 19:08
<Stan Navarrete MD - Last Filed: 09/13/24 20:45>
Orders/Labs/Results
Orders:
Orders
09/13/24 19:36
Basic Metabolic Panel Urgent
Complete Blood Count/With Diff Urgent
Manual Differential Urgent
09/13/24 20:21
0.9% Sodium Chloride 1000 ml [Nss] 1,000 ml IV BOLUS
09/13/24 20:36
Ondansetron Injectable [Zofran] 4 mg .ROUTE .STK-MED ONE
09/13/24 20:38
Ondansetron Injectable [Zofran] 4 mg IV NOW STA
09/13/24 20:39
Bladder Scan- Treatment ONCE
09/13/24 20:40
CT Abd/pel Without Iv Or Oral Urgent
Comment:
Reason For Exam: Vomiting, diarrhea
09/13/24 20:42
Bladder Scan- Treatment ONCE
09/13/24 22:18
Norovirus by PCR Urgent
LINDA Source: Feces/Stool
Specimen Description:
Date Specimen was Collected: 09/13/24
Time Specimen was Collected: 21:52
STOOL [C difficile Antigen & Toxins] Urgent
LINDA Source: Feces/Stool
Specimen Description:
Date Specimen was Collected: 09/13/24
Time Specimen was Collected: 21:52
Stool Culture Urgent
LINDA Source: ST
Specimen Description:
Date Specimen was Collected: 09/13/24
Time Specimen was Collected: 21:52
Comment: ADDED
09/13/24 22:28
Admit/Transfer Patient As Directed
Co-Sign Provider:
Level of Care: Inpatient admission
Assign to:: Medical/Surgical
Physician / Group: marlene
Diagnosis: viral gastroenteritis
Reason for Hospitalization: viral gastroenteritis
Expected length of stay greater than two midnights?: Yes
ELOS- Estimated Length of Stay in days: 2
I certify the patient meets the requirements for IP care: Yes
PRN Pain Medication Management As Directed
May give lesser potent ordered pain med per pt: Yes
preference::
Protocol:: Medication orders for pain may be administered in a
manner that supports deferring to patient preference
when the pt is:
- Requesting an ordered lesser potent pain medication.
Least to most potent pain medications are defined
as: acetaminophen < NSAID < tramadol < opioids
(morphine, oxycodone, hydromorphone).
- Requesting a lesser dose of the same medication IF
ORDERED.
- Requesting a less intrusive route of administration
if both routes are prescribed by the provider (PO <
IV).
09/13/24 22:29
Code Status As Directed
Resuscitation Status: Full Code
09/13/24 22:48
Acetaminophen [Tylenol] 650 mg PO Q6HPRN PRN mild pain
09/13/24 23:00
Flush (0.9% Sodium Chloride) [Flush (Nss)] See Dose Instructions IV PER PROTOCOL
09/13/24 23:21
Add On - Microbiology Urgent
Tests Added?: stool culture
09/13/24 23:56
0.9% Sodium Chloride 1000 ml [Nss] 1,000 ml IV 150 mls/hr
09/14/24 02:33
Ondansetron Injectable [Zofran] 4 mg IV Q6HPRN PRN
09/14/24 02:33
Activity As Directed
Activity Level: As Tolerated
Bladder Scan As Directed
Follow Bladder Retention/Intermittent Cath Algorithm?: Yes
PRN if no void in __ hours: 6
Frequency: Per Retention Algorithm
If Bladder Scan Result >: 400
then:: Straight cath
I/O [Intake/ Output] As Directed
Frequency: q12h
Straight Cath As Directed
Frequency: Per Retention Algorithm
Additional Instructions: straight cath as needed per acute urinary retention algorithm for 24 hrs
Additional Instructions: for bladder scan greater than 400 mL
Vital Signs As Directed
Frequency: Per unit guidelines
DX Deep Vein Thrombosis Video Routine
09/14/24 06:06
Complete Blood Count/With Diff IN AM
Comprehensive Metabolic Panel IN AM
09/14/24 08:00
Amlodipine [Norvasc] 10 mg PO DAILY
Aspirin Chewable [Low Strength Aspirin] 81 mg PO DAILY
Dofetilide [Tikosyn] 500 mcg PO Q12
Ezetimibe [Zetia] 10 mg PO DAILY
Heparin 5,000 units SC Q12
Pantoprazole [Protonix] 40 mg PO Daily
Rosuvastatin Calcium [Crestor] 40 mg PO DAILY
Abnormal Lab Results
09/13/24
19:36
Hgb 18.1 H g/dL
(13.0-18.0)
MCH 31.4 H pg
(27.0-31.0)
MPV 11.7 H fL
(7.4-10.4)
Band Neutrophils 15 H %
(0-3)
Lymphocytes (Manual) 8 L %
(20-51)
Monocytes (Manual) 10 H %
(2-9)
Carbon Dioxide 18 L mmol/L
(22-30)
BUN 64 H mg/dl
(9-20)
Creatinine 4.3 H* mg/dL
(0.7-1.3)
Glucose 137 H mg/dl
(70-99)
09/13/24 19:36
09/13/24 19:36
Vital Signs
Initial and Last Documented VS:
Initial Vital Signs
Temp Pulse Resp BP Pulse Ox
97.5 F 98 20 78/47 98
09/13/24 19:16 09/13/24 19:16 09/13/24 19:16 09/13/24 19:16 09/13/24 19:16
Last Documented Vital Signs
Temp Pulse Resp BP Pulse Ox
100.3 F 97 18 92/42 96
09/14/24 19:08 09/14/24 19:08 09/14/24 19:08 09/14/24 19:08 09/14/24 19:08
[place];Dara Velazquez NP - Last Filed: 09/14/24 22:06>
*Radiology
Radiology exam reviewed: radiology read reviewed
*Pulse Oximetry
Patient hypoxic: no
*Critical Care Note
Total Time (30-74mins, 75-104mins- exclusive of procedures): Not Applicable
<Dara Velazquez NP - Last Filed: 09/14/24 22:06>
Update Note
Update Note:
Patient to ED for weakness, n/v/d. Hypotensive on arrival to ED. Slowly improving with IVF. Labs reviewed. Creat 4.6. Bladder scan completed, no retention. CT without evidence of hydronephrosis, no obstruction. Fluid in colon consistent with
diarrhea complaint. UA, stool cultures pending. Will be admitted to hospitalist service for ARF, dehydration, diarrhea.
ED Attending Note
<Dara Velazquez NP - Last Filed: 09/14/24 22:06>
-
Portions of this chart may have been created with voice recognition software.� Occasional wrong word or��sound alike� substitutions may have occurred due to the inherent limitations of voice recognition software.
<Stan Navarrete MD - Last Filed: 09/13/24 20:45>
ED Attending Note
Patient seen and examined by attending physician: Yes
ED Attending Note:
I have seen and evaluated the patient with a [id number] encounter. I have spoken to the advance practicer provider and involved in the medical history, the physical exam, medical decision making.
Evaluation and management service: agree unless noted differently below.
Results interpretation: agree unless noted differently below.
Focused HPI: 84-year-old male with history as noted presents to the ER for evaluation of nausea, vomiting, diarrhea. Patient reports onset of symptoms 2 days ago and have been constant since that time. He reports profuse watery nonbloody diarrhea.
He says he has had nausea with a few episodes of vomiting. Nonbloody. He denies any significant abdominal pain. He denies fever or chills. He denies any other complaints. He denies any recent travel. He denies any known sick contacts. Denies
any recent antibiotics.
Physical exam: Awake alert no distress. Hypertensive, tachycardic. Abdomen soft, nondistended, nontender to deep palpation. Mucous membranes are dry, poor skin turgor.
Medical Decision Makin-year-old male presents for evaluation of nausea/vomiting/diarrhea. Vitals and exam as above. He appears dehydrated. Labs were sent off including a CBC and a CMP which were significant for renal failure with creatinine
of 4.3 from a baseline of 0.9. Bladder scan no retained urine. Suspect profound dehydration. Will send stool cultures. Check CT abdomen. Fluid resuscitation. Plan for admission.
Discharge Plan
Departure
Patient Disposition: Admit
Date of Disposition: 09/13/24
Time of Disposition: 22:15
Presentation/result/management discussed w/ accepting MD/DO: Hospitalist
Patient with high blood pressure during this ER visit?: No
Condition: Fair
Covid-19: Not Applicable
Discharge Problem:
Acute renal failure (ARF), Acute dehydration, Acute hypotension
Interventions
Interventions:
*Risk Screen - Suicide Last Done: 09/13/24 19:16
*General Assessment Last Done: 09/13/24 19:16
*Neglect/Abuse Screening Last Done: 09/13/24 19:16
*ED- Fall Risk Assessment Last Done: 09/13/24 20:16
*ED COVID-19 Vaccine History Last Done: 09/13/24 19:16
*Nursing Disposition Last Done: 09/14/24 02:29
GY-Dgphpl-Doehfbjteg Assessment Last Done: 09/13/24 20:16
Discharge Date and Time
Discharge Date/Time: 09/14/24 02:30
[2024-09-13] MEDS: NSS 1000 IV (20:29)
[2024-09-13] MEDS: ZOFRAN 4 MG IV (20:38)
--- NOTE | 2024-09-13 22:31 | HPS.HSE ---
Family Physician
-
Family Physician: Liza Estrella PA-C
Chief Complaint
-
diarrhea
History of Present Illness
84-year-old male past medical history of carotid stenosis, prior CVA, hypertension, hyperlipidemia, basal cell carcinoma, atrial fibrillation, GERD, presenting with predominantly diarrhea and some vomiting starting 2 days ago. Patient taking
antidiarrheal medication without improvement. Diarrhea is watery without any blood. He has chills but denies fever. Denies abdominal pain. Denies any recent sick contacts. Denies any travel or eating any outside food. He is not making any
urine.
Denies shortness of breath or cough.
Denies smoking or alcohol use.
Medical History
Past Medical History
Past Medical History: Reports Other (carotid stenosis, prior CVA, hypertension, hyperlipidemia, basal cell carcinoma, atrial fibrillation, GERD)
Past Surgical History: Reports Other (Appendectomy, Orthopedic and Other (Appendectomy, Repair R knee, Amor. Cataracts))
Social History
Tobacco: Non-smoker
Alcohol: None
Drug: None
Family History
Family History: Not pertinent
Allergies / Home Medications
Allergies reflects when Allergies were last updated in [facility].
Home Medications with original date entered in [facility]
Allergy/Medication List:
Allergies
Allergy/AdvReac Type Severity Reaction Status Date / Time
No Known Allergies Allergy Verified 10/06/23 11:48
Home Medications
pantoprazole 40 mg tablet,delayed release 40 mg PO Daily #90 tabs 06/27/20
ezetimibe 10 mg tablet (Zetia) 10 mg PO DAILY High cholesterol 11/10/21
dofetilide 500 mcg capsule 500 mcg PO Q12 #60 caps 11/13/21
rosuvastatin 40 mg tablet 40 mg PO DAILY #30 tabs 11/13/21
aspirin 81 mg chewable tablet 81 mg PO DAILY Blood Clot Prevention/Tx 03/08/23
acetaminophen 325 mg tablet (Tylenol) 650 mg PO Q6HPRN PRN mild pain 09/13/24
amlodipine 10 mg tablet (Norvasc) 10 mg PO DAILY 09/13/24
lisinopril 40 mg tablet 40 mg PO DAILY 09/13/24
loperamide 2 mg-simethicone 125 mg tablet 1 tab PO Q6HPRN PRN diarrhea 09/13/24
Review of Systems
-
History Source: Patient
A 12 point ROS was completed and negative except as noted: Yes
Constitutional: Reports No Symptoms
EENT: Reports No Symptoms
Respiratory: Reports No Symptoms
Cardiac: Reports No Symptoms
Abdomen/GI: Reports See HPI
: Reports No Symptoms
Musculoskeletal: Reports No Symptoms
Skin: Reports No Symptoms
Neurological: Reports No Symptoms
Endocrine: Reports No Symptoms
Hematologic/Lymphatic: Reports No Symptoms
Psych: Reports No Symptoms
Physical Exam
Vital Signs
Vital Signs
Temp Pulse Resp BP Pulse Ox
97.5 F 84 26 112/55 94
09/13/24 19:16 09/13/24 21:47 09/13/24 21:47 09/13/24 21:47 09/13/24 21:15
Physical Exam
General: Well Developed, Well Nourished and No Apparent Distress
HEENT: NormoCephalic, Moist mucous membranes and Atraumatic
Respiratory: Clear
Cardiac: S1/S2 and Regular Rhythm; No Murmur or Rub
GI: Soft, Non Tender, Non Distended and Normal Bowel Sounds; No Organomegaly
Rectal: Deferred by Provider
Musculoskeletal: No Clubbing, No Cyanosis and No Edema
Skin: No Rash
Neuro: Nonfocal/grossly intact
Laboratory Results
-
09/13/24 19:36
09/13/24 19:36
Laboratory Results
Total Bilirubin Cancelled 09/13/24 19:36
AST Cancelled 09/13/24 19:36
ALT Cancelled 09/13/24 19:36
Alkaline Phosphatase Cancelled 09/13/24 19:36
Data Reviewed
-
Lab Data: Labs Reviewed by me
Old Records: Reviewed
Impression/Plan
-
IMPRESSION:
PLAN:
# Acute viral enterocolitis
- CT abdomen pelvis shows fluid attenuation in the colon consistent with diarrheal illness
- Stool culture, C. difficile and norovirus pending
- N.p.o.
- IV fluids, Zofran,
- Advance diet as tolerated
# Severe prerenal HUNTER
- Creatinine of 4.3
- IV fluids
- Hold lisinopril
-Check I's and O's,
- Bladder scan protocol
Carotid stenosis
Prior CVA
- Continue aspirin, statin
Essential hypertension
- Continue amlodipine
-hold lisinopril
Hyperlipidemia
- Continue Zetia
Basal cell carcinoma
Paroxysmal atrial fibrillation
- Continue dofetilide
GERD
- Continue Protonix
Full code
DVT prophylaxis�heparin
N.p.o.
[2024-09-14] VITALS (9 sets, daily range): BP systolic 68–113; BP diastolic 37–55; BMI 27.9
[2024-09-14] MEDS: TYLENOL 650 MG PO ×2 (00:02→08:37)
[2024-09-14] MEDS: NSS 1000 IV ×3 (00:04→20:27)
[2024-09-14] MEDS: NSS 500 IV (03:09)
[2024-09-14 06:16] LABS: Hematocrit 47.5 % (39.0-52.0); Hemoglobin 16.6 g/dL (13.0-18.0); Mean Corp Hgb Conc. 34.9 g/dL (33.0-37.0); Mean Corpuscular Hgb 31.4 pg (27.0-31.0); Mean Platelet Volume 11.6 fL (7.4-10.4); Platelet Count 147 10^3/uL (130-400); Red Blood Cell Count 5.28 10^6/uL (4.70-6.10); Red Cell Dist. Width 13.8 % (11.5-14.5); White Blood Cell Count 4.4 10^3/uL (4.8-10.8)
[2024-09-14 06:36] LABS: Absolute Neutrophils -Man Diff 3.6 10^3/uL (1.4-6.5); Band Neutrophils 39 % (0-3); Lymphocytes 8 % (20-51); Monocytes 9 % (2-9); Platelets Checked Yes; Segmented Neutrophils 44 % (42-75)
[2024-09-14 06:37] LABS: Normal RBC Morphology Yes; Total Cells Counted 100
[2024-09-14 06:44] LABS: ALT (SGPT) 35 U/L (0-50); AST (SGOT) 38 U/L (17-59); Albumin 4.3 g/dl (3.5-5.0); Alkaline Phosphatase 48 U/L (38-126); Blood Urea Nitrogen 76 mg/dl (9-20); Calcium 8.2 mg/dl (8.4-10.2); Carbon Dioxide 17 mmol/L (22-30); Chloride 101 mmol/L (98-107); Estimated Creatinine Clearance 10 ml/min; Glucose 134 mg/dl (70-99); Magnesium 1.5 mg/dl (1.6-2.3); Sodium 140 mmol/L (135-145); Total Bilirubin 1.1 mg/dl (0.2-1.3); Total Protein 6.7 g/dl (6.3-8.2); eGFR 9.93
[2024-09-14] MEDS: MAGNESIUM SULFATE 50 IV (08:08)
[2024-09-14] MEDS: HEPARIN 5000 UNITS SC ×2 (08:09→20:26)
[2024-09-14] MEDS: PROTONIX 40 MG PO (08:09)
[2024-09-14] MEDS: CRESTOR 40 MG PO (08:09)
[2024-09-14] MEDS: ZETIA 10 MG PO (08:09)
[2024-09-14] MEDS: LOW STRENGTH ASPIRIN 81 MG PO (08:10)
--- NOTE | 2024-09-14 08:14 | W.PN.HOSP.TC ---
Today's Communication/Plan
-
see plan
Assessment / Plan
Assessment / Plan
Gen: NAD, AAOx3.
Eyes: EOMI, PERRLA, no scleral icterus.
Neck: supple.
CV: RRR, +S1/S2, no m/r/g.
Resp: CTAB, no rales, wheezes, or rhonchi.
Abd: +BS, soft, NT, ND
Skin: No rashes.
Neuro: CN 2-12 intact, non-focal.
Psych: Normal mood and affect.
CT A/P: Fluid attenuation in the colon most in keeping with a diarrheal illness. No other acute inflammatory process in the abdomen or pelvis within the limitations of the lack of oral and intravenous contrast.
Acute viral enterocolitis:
-CT A/P above
-C. difficile NEG
-follow Stool culture and norovirus
-increase IVFs to 150cc/hr
-Zofran PRN
-clears, advance diet as tolerated
Severe prerenal HUNTER:
-Cr worsening
-cont IVFs
-check U/A
-c/s renal
-ACEi on hold
-stop Norvasc with hypotension
Paroxysmal atrial fibrillation:
-stop Tikosyn with current CrCl
-c/s cardiology
Electrolyte disturbances:
-Hypokalemia, IV and PO K
-Hypomagnesemia: IV Mg
Other problems:
NITZA s/p CEA
h/o CVA: cont ASA/statin
Essential hypertension: holding ACEi, stop Norvasc with hypotension
HLD: Cont Zetia/statin
h/o Basal cell carcinoma
GERD: Cont PPI
Discussed with cardiology and renal.
FULL/heparin
Total time spent on today's encounter was 50 minutes which included time spent in counseling the patient/family regarding diagnosis and treatment plan as listed above, goals of care, and symptom management. Case was discussed with nursing staff,
specialists, and care coordinators/case management. All labs and imaging personally reviewed by me. Remainder the time spent in detailed review of previous records, lab data, imaging, and other medical provider documentation.
Anticipated Discharge: > 48 hours
Subjective/Interval History
-
Date of Service: September 14, 2024
Patient with persistent diarrhea. Denies abdominal pain, states he has abdominal 'discomfort.'
Objective Data
-
Labs:
Laboratory Results
09/14/24
06:06
WBC 4.4 L
Hgb 16.6
Hct 47.5
Plt Count 147
Sodium 140
Potassium 3.0 L
Chloride 101
Carbon Dioxide 17 L
BUN 76 H
Creatinine 5.4 H*
Glucose 134 H
Calcium 8.2 L
Total Bilirubin 1.1
AST 38
ALT 35
Alkaline Phosphatase 48
Vital Signs:
Vital Signs
Temp Pulse Resp BP Pulse Ox
97.9 F 80 22 113/48 92
09/14/24 02:36 09/14/24 05:24 09/14/24 00:45 09/14/24 05:24 09/14/24 02:36
--- NOTE | 2024-09-14 08:38 | CON.CAR ---
Addendum entered and electronically signed by Yahir Leger MD 09/14/24 12:18:
I saw and examined the patient.
The GUIDE VISITOR's note was reviewed and I agree with the note.
84 yo male with persistent Afib on Eliquis s/p PVI 05/06/20, then recurrent Afib and on Tikosyn, then GI bleed, now s/p Watchman #27 on 08/05/20 off Eliquis on ASA 81mg daily, 1st degree AVB, LAFB, left carotid artery stenosis s/p CEA 10/2023 (
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 We are asked to comment on Tikosyn use. He reports he has not had recurrent afib in years.
RRR, S1S2, no m/r/g, cta no w/r/r. ECG with Sinus rhythm with very prolonged QTC.
Cr 5.4.
PAF: in NSR, agree with stopping Tikosyn. As he has been free of atrial fibrillation for several years, would not recommend resumption on this hospitalization. Would reevaluate as an outpatient whether or not it needed to be continued at all.
Continue aspirin given Watchman device in place.
Prolonged QTc: Aggressively keep K replete given ongoing diarrhea, avoid agents that would further prolong QTc. I note he did receive Zofran, and would not continue.
HUNTER: Nephrology consulted, as per medicine and nephrology.
Diarrhea: Further evaluation as per Dr. Ngo. C. difficile and norovirus negative.
Plan discussed with Dr. Ngo. Will follow peripherally on telemetry.
Original Note:
Consultation
Consultation Request
Date/Time Consultation Requested: 09/14/24 8:15a
Date/Time Consultation Performed: 09/14/24 8:30a
Requesting Provider: Dr. Ngo
Performing Provider: AMBER Cao for Dr. Leger
Reason for Consultation: Afib
Medical History
-
Chief Complaint: vomiting/diarrhea
History of Present Illness:
Mr. Warner is an 84 yo male with persistent Afib on Eliquis s/p PVI 05/06/20, then recurrent Afib and on Tikosyn, then GI bleed, now s/p Watchman #27 on 08/05/20 off Eliquis on ASA 81mg daily, 1st degree AVB, LAFB, left carotid artery stenosis s/p
CEA 10/2023 (Dr. 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 He denies any cardiac complaints. He has HUNTER with initial creatinine 4.3 now today 5.4, admitted to
hospitalist service. We are consulted for Afib. EKG today shows SR with PVCs 100bpm with prolonged QT 642ms. Tikosyn was stopped due to prolong QTc and HUNTER.
Past Medical History
Past Medical History: Other (as above)
Past Surgical History: Appendectomy, Cardiac (Watchman, PVI, left CEA) and Orthopedic (b/l TKA)
Social History
Tobacco: Non-Smoker
Alcohol: None
Personal:
Living: With Family
Employment: Retired
Family History
Family History: CAD (father)
Allergies / Home Medications
Allergy/AdvReac Type Severity Reaction Status Date / Time
No Known Allergies Allergy Verified 10/06/23 11:48
�Medication �Instructions �Recorded �Confirmed �Type
pantoprazole 40 mg tablet,delayed 40 mg PO Daily #90 tabs 06/27/20 09/13/24 Rx
release
ezetimibe 10 mg tablet (Zetia) 10 mg PO DAILY High cholesterol 11/10/21 09/13/24 History
dofetilide 500 mcg capsule 500 mcg PO Q12 #60 caps 11/13/21 09/13/24 Rx
rosuvastatin 40 mg tablet 40 mg PO DAILY #30 tabs 11/13/21 09/13/24 Rx
aspirin 81 mg chewable tablet 81 mg PO DAILY Blood Clot 03/08/23 09/13/24 History
Prevention/Tx
acetaminophen 325 mg tablet 650 mg PO Q6HPRN PRN mild pain 09/13/24 09/13/24 History
(Tylenol)
amlodipine 10 mg tablet (Norvasc) 10 mg PO DAILY 09/13/24 09/13/24 History
lisinopril 40 mg tablet 40 mg PO DAILY 09/13/24 09/13/24 History
loperamide 2 mg-simethicone 125 mg 1 tab PO Q6HPRN PRN diarrhea 09/13/24 09/13/24 History
tablet
Review of Systems
-
History Source: Patient
All other systems: Negative unless noted
Physical Exam
Vital Signs
Temp Pulse Resp BP Pulse Ox
97.6 F 89 16 104/55 95
09/14/24 07:30 09/14/24 08:10 09/14/24 07:30 09/14/24 08:10 09/14/24 07:30
Lab Results
09/14/24 06:06
09/14/24 06:06
Physical Exam
General: Well Developed, Well Nourished and No Apparent Distress
HEENT: Normocephalic, Anicteric and Moist Mucous Membranes
Respiratory: Clear and Non Labored Respirations
Cardiac: S1/S2 and Regular Rhythm
Breast: Deferred by me
GI: Soft and Other (hyperactive bowel sounds)
Rectal: Deferred by Provider
Genito-urinary: No Costovertebral Tender
Musculoskeletal: No Clubbing, No Cyanosis and No Edema
Skin: Warm and Dry
Neuro: AO x 3
Psych: Calm
Impression / Plan
-
Afib - persistent s/p PVI 04/2020 then recurrent Afib.
- stable on Tikosyn in NSR.
- was on Eliquis and now s/p Watchman 07/2020 due to recurrent GIB, Eliquis stopped and on ASA 81mg daily.
- [id number] VASc score is 4.
- Tikosyn stopped due to HUNTER and prolonged QTc.
- monitor on tele and daily EKG.
- will make a plan at discharge for Tikosyn when HUNTER resolves.
HTN - low BP given hypovolemia from vomiting/diarrhea.
- hold Lisinopril due to HUNTER
HLD - continue Crestor and Zetia.
- LDL 53, at goal.
PAD - s/p left CEA.
- continue ASA, Crestor, Zetia.
- followed by Dr. Mina.
HUNTER - worsened.
- nephrology consulted.
- holding Tikosyn, Lisinopril.
Diarrhea/vomiting - acute.
- per hospitalist.
Data Reviewed
-
EKG: Tracing Personally Visualized and interpreted (SR with PVCs 100bpm with prolonged QT 642ms)
Medical Tests (Nuc Med, Echo etc): Report Reviewed by me (echo 08/2022: EF 65-70%, mild cLVH, aortic sclerosis w/o stenosis, mildly dilated proximal ascending aorta 4.2cm)
Labs: Labs Reviewed by me
Old Records: Reviewed
[2024-09-14] MEDS: KCL 40 MEQ PO (08:44)
[2024-09-14] MEDS: KCL 270 MEQ IV ×2 (10:12→23:26)
--- NOTE | 2024-09-14 11:18 | W.CON.NEPH ---
Consultation
-
Date/Time Consultation Requested: September 14, 2024 at 10 AM
Date/Time Consultation Performed: Sep 14 2024 at 11:30 AM
Requesting Provider: Dr. Ngo
Performing Provider: Dr. Chacon
Reason for Consultation: Acute kidney injury
Medical History
-
Chief Complaint: Acute kidney injury
History of Present Illness:
84-year-old male past medical history of carotid stenosis, prior CVA, hypertension, hyperlipidemia, basal cell carcinoma, atrial fibrillation, GERD, presenting with predominantly diarrhea and some vomiting starting 2 days ago.
Renal consultation for acute kidney injury creatinine of 4 on admission increased to 5.3
Hypotensive on admission with some improvement with IV fluids
Continues to have diarrhea
Past Medical History
Past medical history of carotid stenosis, prior CVA, hypertension, hyperlipidemia, basal cell carcinoma, atrial fibrillation, GERD,
Social History
Tobacco: Non-Smoker
Alcohol: None
Family History
Family History: Not Pertinent
Allergies / Home Medications
Allergy/AdvReac Type Severity Reaction Status Date / Time
No Known Allergies Allergy Verified 10/06/23 11:48
�Medication �Instructions �Recorded �Confirmed �Type
pantoprazole 40 mg tablet,delayed 40 mg PO Daily #90 tabs 06/27/20 09/13/24 Rx
release
ezetimibe 10 mg tablet (Zetia) 10 mg PO DAILY High cholesterol 11/10/21 09/13/24 History
dofetilide 500 mcg capsule 500 mcg PO Q12 #60 caps 11/13/21 09/13/24 Rx
rosuvastatin 40 mg tablet 40 mg PO DAILY #30 tabs 11/13/21 09/13/24 Rx
aspirin 81 mg chewable tablet 81 mg PO DAILY Blood Clot 03/08/23 09/13/24 History
Prevention/Tx
acetaminophen 325 mg tablet 650 mg PO Q6HPRN PRN mild pain 09/13/24 09/13/24 History
(Tylenol)
amlodipine 10 mg tablet (Norvasc) 10 mg PO DAILY 09/13/24 09/13/24 History
lisinopril 40 mg tablet 40 mg PO DAILY 09/13/24 09/13/24 History
loperamide 2 mg-simethicone 125 mg 1 tab PO Q6HPRN PRN diarrhea 09/13/24 09/13/24 History
tablet
Review of Systems
-
Diarrhea
Physical Exam
Vital Signs
Vital Signs
Temp Pulse Resp BP Pulse Ox
97.6 F 89 16 104/55 95
09/14/24 07:30 09/14/24 08:10 09/14/24 07:30 09/14/24 08:10 09/14/24 07:30
Lab Results
WBC 4.4 10^3/uL (4.8-10.8) L 09/14/24 06:06
RBC 5.28 10^6/uL (4.70-6.10) 09/14/24 06:06
Hgb 16.6 g/dL (13.0-18.0) 09/14/24 06:06
Hct 47.5 % (39.0-52.0) 09/14/24 06:06
Plt Count 147 10^3/uL (130-400) 09/14/24 06:06
Sodium 140 mmol/L (135-145) 09/14/24 06:06
Potassium 3.0 mmol/L (3.5-5.1) L 09/14/24 06:06
Chloride 101 mmol/L (98-107) 09/14/24 06:06
Carbon Dioxide 17 mmol/L (22-30) L 09/14/24 06:06
BUN 76 mg/dl (9-20) H 09/14/24 06:06
Creatinine 5.4 mg/dL (0.7-1.3) H* 09/14/24 06:06
eGFR 9.93 09/14/24 06:06
Glucose 134 mg/dl (70-99) H 09/14/24 06:06
Calcium 8.2 mg/dl (8.4-10.2) L 09/14/24 06:06
Albumin 4.3 g/dl (3.5-5.0) 09/14/24 06:06
Physical Exam
General no acute distress
HEENT no cephalic atraumatic extraocular muscle intact no scleral icterus no JVD neck supple
lungs clear to auscultation bilateral
heart regular S1-S2 positive ectopy
abdomen soft nontender positive bowel sounds
extremities no edema pulses present bilateral
Neurologically nonfocal alert and oriented x 3
Skin no lesions no abrasions no petechiae
Psych normal affect no bizarre behavior
Data Reviewed
-
CT Scan: Image Personally Visualized and interpreted (No obstruction renal pathology)
Labs: Labs Reviewed by me and Discussed with Patient
Assessment/Plan
-
84-year-old male past medical history of carotid stenosis, prior CVA, hypertension, hyperlipidemia, basal cell carcinoma, atrial fibrillation, GERD, presenting with predominantly diarrhea and some vomiting starting 2 days ago.
Renal consultation for acute kidney injury creatinine of 4 on admission increased to 5.3
Hypotensive on admission with some improvement with IV fluids
Impression.
Acute kidney injury creatinine 5.3 normal baseline
Diarrhea enteritis
hypokalemia secondary to diarrhea.
Atrial fibrillation.
Plan.
No obstructive uropathy
Urinalysis pending
Stool cultures pending.
Continue normal saline at 150 cc/h.
Urine output monitoring.
Hold lisinopril
Renal dose all medications appropriate for GFR to reach steady state.
AM labs
--- NOTE | 2024-09-14 11:52 | CM ---
CM following re: discharge planning.
Reviewed pt's chart, met with pt.
Pt is an 84 year old male, admitted wit primary dx of Acute viral enterocolitis.
Pt reports he lives alone 2SH, 1 step to enter, has 2 supportive daughter who live locally and can help if needed. 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 Pt expressed his desire to return back home at discharge.
PCP: Liza Estrella
pharmacy> [facility]
D/C plan: home with anticipated no needs. Daughter to transport.
CM will follow with discharge plan updates as hospitalization progresses
[2024-09-14] MEDS: NSS IV (16:23)
[2024-09-14 17:40] LABS: Blood Urea Nitrogen 83 mg/dl (9-20); Calcium 8.1 mg/dl (8.4-10.2); Carbon Dioxide 12 mmol/L (22-30); Chloride 101 mmol/L (98-107); Estimated Creatinine Clearance 8 ml/min; Glucose 142 mg/dl (70-99); Potassium 3.4 mmol/L (3.5-5.1); Sodium 138 mmol/L (135-145)
--- NOTE | 2024-09-14 17:55 | PTCARENOTE ---
Unable to collect urine specimen, due to pt experiencing frequent diarrhea, resulting in stool contamination.
[2024-09-14 18:27] LABS: Venous Blood Gas B.E. -13.6 mmol/L (-4 to +4); Venous Blood Gas O2 Sat % 71.3 %; Venous Blood Gas pCO2 43 mmHg (35-48); Venous Blood Gas pO2 47 mmHg (30-50)
[2024-09-14 18:31] LABS: Venous Blood Gas pH 7.15 (7.32-7.43)
--- NOTE | 2024-09-14 19:25 | PTCARENOTE ---
patient VbG labs ph 7.5, HCO3 15.0 dr. Chacon made aware. order to continue with current NSS at 150ml/hr. Plan of care ongoing.
[2024-09-14] MEDS: SODIUM BICARBONATE 1150 MEQ IV (23:22)
[2024-09-15] VITALS (97 sets, daily range): BP systolic 72–171; BP diastolic 35–150; BMI 27.8
--- NOTE | 2024-09-15 01:31 | W.PN.UPDATE ---
Addendum entered and electronically signed by AMBER Tay 09/15/24 06:37:
~ 6:[address] Ngo, new orders received: Blood cultures x 2 (prior to starting antibiotics), Vancomycin 750 mg IV x 1 dose, Cefepime 1 g IV x 1 dose.
Original Note:
Update Note
Progress Note Update
~ 22:00 TT to� check K+ per Dr. Ngo. at 17:10� K+ 3.4, ordered Supplemental Potassium 40 meq IV x 1 now.�
VBG forwarded to Nephrology, per recommendations, ordered Bicarb gtt D5W 150 meq bicarb @ 150 mls/hr. Placed condom catheter to monitor urine output.
~ 1:30 am - Pt became hypotensive BP 82/47, RH 87. Patient symptomatic, stated he felt dizzy and not well.�No urine output. Started on Levophed. Patient transferred to IMU. TT Dr. Ngo, Hospitalist and Dr. Chacon, Nephrology to update.
[2024-09-15] MEDS: LEVOPHED 250 IV ×3 (01:35→21:26)
--- NOTE | 2024-09-15 02:00 | PTCARENOTE ---
Patient transferred to ICU after giving report to Batsheva.
--- NOTE | 2024-09-15 03:37 | PTCARENOTE ---
Transferred patient from to ICU. AAOx3, following commands, denying pain, reporting generalized weakness. NS 80s with PVCs, titrating levophed to maintain MAP>65. Normothermic, palpable radial and pedal pulses b/l. 94% on room air, lung sounds
clear throughout. Abdomen soft, round, nontender, positive bowel sounds. Rectal trumpet inserted and drained 400 mls of liquid green stool. #25 condom cath on, no urine output. Skin intact. PIVs patent, WNL. Sodium bicarb and levophed gtt ongoing
per order. K rider ongoing. Call ty within reach.
[2024-09-15] MEDS: TYLENOL 650 MG PO ×2 (06:02→20:11)
[2024-09-15 06:18] LABS: Hematocrit 45.4 % (39.0-52.0); Hemoglobin 16.5 g/dL (13.0-18.0); Mean Corp Hgb Conc. 36.3 g/dL (33.0-37.0); Mean Corpuscular Hgb 31.3 pg (27.0-31.0); Mean Platelet Volume 11.7 fL (7.4-10.4); Platelet Count 143 10^3/uL (130-400); Red Blood Cell Count 5.28 10^6/uL (4.70-6.10); Red Cell Dist. Width 13.9 % (11.5-14.5); White Blood Cell Count 5.7 10^3/uL (4.8-10.8)
[2024-09-15 06:41] LABS: ALT (SGPT) 26 U/L (0-50); AST (SGOT) 28 U/L (17-59); Albumin 4.1 g/dl (3.5-5.0); Alkaline Phosphatase 45 U/L (38-126); Blood Urea Nitrogen 91 mg/dl (9-20); Calcium 7.6 mg/dl (8.4-10.2); Carbon Dioxide 7 mmol/L (22-30); Chloride 102 mmol/L (98-107); Glucose 205 mg/dl (70-99); Magnesium 2.1 mg/dl (1.6-2.3); Potassium 3.4 mmol/L (3.5-5.1); Sodium 135 mmol/L (135-145)
--- NOTE | 2024-09-15 07:01 | W.PN.HOSP.TC ---
Today's Communication/Plan
-
see plan
Assessment / Plan
Assessment / Plan
Gen: NAD, AAOx3.
Eyes: EOMI, PERRLA, no scleral icterus.
Neck: supple.
CV: RRR, +S1/S2, no m/r/g.
Resp: CTAB, no rales, wheezes, or rhonchi.
Abd: +BS, soft, NT, ND
Skin: No rashes.
Neuro: CN 2-12 intact, non-focal.
Psych: Normal mood and affect.
09/13/24 22:18 Feces/Stool C. difficile GDH Antigen & Toxins - Final
Negative for toxigenic C.difficile
09/13/24 22:18 Feces/Stool - Final
Negative for Norovirus GI and GII.
CT A/P: Fluid attenuation in the colon most in keeping with a diarrheal illness. No other acute inflammatory process in the abdomen or pelvis within the limitations of the lack of oral and intravenous contrast.
Acute viral enterocolitis:
-CT A/P above
-C. difficile/Norovirus NEG
-clears, advance diet as tolerated
-with bandemia, 1 dose Vanco/Cefepime given, follow BCxs, c/s ID
-on Levophed for hypovolemic shock
Severe prerenal HUNTER:
-Cr continues to worsen. Patient now with worsening anion gap metabolic acidosis despite bicarb gtt.
-check a1c, B-hydroxybutyrate for completeness with hyperglycemia (likely stress rxn)
-renal following, discussed with Dr. Chacon, will need HD
-Home ACEi/Norvasc stopped
Paroxysmal atrial fibrillation:
-Tikosyn stopped with HUNTER
-cardiology following
Electrolyte disturbances:
-Hypokalemia, IV K
-Hypomagnesemia, resolved
Other problems:
NITZA s/p CEA
h/o CVA: cont ASA/statin
Essential hypertension: currently hypotensive on Levophed
HLD: Cont Zetia/statin
h/o Basal cell carcinoma
GERD: Cont PPI
FULL/heparin
SBP 90s on 6 of Levophed, will need HD which will likely increase vasopressor requirements, transfer to ICU.
Total critical care time spent = 42 min.
Anticipated Discharge: > 48 hours
Subjective/Interval History
-
Date of Service: September 15, 2024
Reports fatigue. Denies CP/SOB/abd pain. No UOP O/N as per RN. Bladder scan for 34cc. Rectal tube placed for persistent diarrhea.
Objective Data
-
Labs:
Laboratory Results
09/15/24
05:57
WBC 5.7
Hgb 16.5
Hct 45.4
Plt Count 143
Sodium 135
Potassium 3.4 L
Chloride 102
Carbon Dioxide 7 L*
BUN 91 H
Creatinine Pending
Glucose 205 H
Calcium 7.6 L
Total Bilirubin 1.0
AST 28
ALT 26
Alkaline Phosphatase 45
Vital Signs:
Vital Signs
Temp Pulse Resp BP Pulse Ox
97.9 F 79 26 109/54 94
09/15/24 02:46 09/15/24 06:00 09/15/24 06:00 09/15/24 06:00 09/15/24 05:45
I&O
09/14/24 09/15/24 09/16/24
06:59 06:59 06:59
Intake Total 1956.5 / 1956.5
Output Total 815 / 815
Balance 1142.5 / 1142.5
[2024-09-15 08:07] LABS: Absolute Neutrophils -Man Diff 4.3 10^3/uL (1.4-6.5); Band Neutrophils 28 % (0-3); Segmented Neutrophils 48 % (42-75)
[2024-09-15 08:08] LABS: Lymphocytes 10 % (20-51); Metamyelocytes 1 % (-); Monocytes 13 % (2-9); Platelets Checked Yes
[2024-09-15] MEDS: SODIUM BICARBONATE 1150 MEQ IV ×2 (08:10→15:54)
[2024-09-15 08:11] LABS: Normal RBC Morphology Yes; Total Cells Counted 100
[2024-09-15] MEDS: KCL 270 MEQ IV (08:13)
--- NOTE | 2024-09-15 08:28 | CON.INTV ---
Consultation
Consultation Request
Date/Time Consultation Requested: 09/15/2024825
Date/Time Consultation Performed: 09/15/2024826
Requesting Provider: Dr. Ngo
Performing Provider: Dr. Naidu
Reason for Consultation: Shock/HUNTER/Emergent HD needed
Medical History
-
Chief Complaint: Nausea/vomiting/diarrhea
History of Present Illness:
84-year-old male with a past medical history of A-fib s/p PVI + Watchman (both performed in 2020), LAFB, left carotid artery stenosis s/p CEA (10/2023), hypertension and hyperlipidemia who presented with nausea/vomiting and diarrhea for several days
with reduced oral intake and weakness. He had not urinated in 2 days as well. Diarrhea was watery without blood or mucus. Initial creatinine was 4.3, BUN 64, and serum bicarbonate level 18. Stool cultures were ordered. CT abdomen/pelvis showed
fluid attenuation in the colon with no other acute inflammatory process in the abdomen or pelvis, and no hydronephrosis or nephrolithiasis. 2 L NS 0.9% given in the ER in addition to Tylenol and Zofran and he was admitted to the Med-Surg for
further care. Patient continued to be hypotensive and was transferred to the IMU on 09/14 and unfortunately his blood pressure continued to decline, prompting initiation of vasopressors. His metabolic acidosis also persisted despite bicarbonate
drip and he was upgraded to the ICU and senior specialist services consulted for additional management/recommendations.
When I saw the patient this morning, he was resting in bed, still having abdominal discomfort and felt like his abdomen was distended. His belly pain overall has markedly improved. He says his nausea/vomiting symptoms had started on Tuesday
(09/11/2024). He is currently on room air saturating 96%, and on Levophed at 8 mcg/min with BP 110/60. He denies MCKEON, chest pain, SOB, fevers or chills.
Of note, patient previously followed with us in the pulmonary office in February [address] Jalloh. Endorsed exertional dyspnea at that time which was likely due to A-fib, LV hypertrophy and body habitus. Spirometry performed on 02/19/2020
showed no evidence of obstruction and there was a mild restrictive lung defect with pre and post-bronchodilator FVC 72%. 6MWT also from 02/19/2020 showed mary SaO2 of 94% and he walked 840 feet with no need for home O2.
PMHx: Hypertension, hyperlipidemia, basal cell carcinoma, A-fib on dofetilide s/p PVI (04/2020) and watchman (07/2020), left anterior fascicular block, left carotid artery stenosis s/p CEA (10/2023)
PSHx: Appendectomy, right knee arthroscopy, foreign body removal from right foot with fasciectomy of surrounding granulomatous reaction, right knee partial medial meniscectomy, PVI, Watchman (07/2020), right TKA, left TKA, cardiac catheterization,
left carotid endarterectomy
Past Medical History
Past Medical History: Other (Above as per HPI)
Past Surgical History: Other (Above as per HPI)
Social History
Tobacco: Former Smoker (Former light smoker, quit 65 years ago)
Alcohol: Occasional
Drug: None
Family History
Family History: CAD (Father) and Cancer (Mother (unknown type))
Allergies / Home Medications
Allergies
Allergy/AdvReac Type Severity Reaction Status Date / Time
No Known Allergies Allergy Verified 10/06/23 11:48
Home Medications
�Medication �Instructions �Recorded �Confirmed �Last Taken �Type
pantoprazole 40 mg tablet,delayed 40 mg PO Daily #90 tabs 06/27/20 09/13/24 09/12/24 Rx
release 80 mg
ezetimibe 10 mg tablet (Zetia) 10 mg PO DAILY High cholesterol 11/10/21 09/13/24 09/12/24 History
20 mg
dofetilide 500 mcg capsule 500 mcg PO Q12 #60 caps 11/13/21 09/13/24 09/13/24 06:00 Rx
500 mg
rosuvastatin 40 mg tablet 40 mg PO DAILY #30 tabs 11/13/21 09/13/24 09/12/24 Rx
80 mg
aspirin 81 mg chewable tablet 81 mg PO DAILY Blood Clot 03/08/23 09/13/24 09/12/24 History
Prevention/Tx 162 mg
acetaminophen 325 mg tablet 650 mg PO Q6HPRN PRN mild pain 09/13/24 09/13/24 09/13/24 History
(Tylenol)
amlodipine 10 mg tablet (Norvasc) 10 mg PO DAILY Blood Pressure 09/13/24 09/13/24 09/12/24 History
20 mg
lisinopril 40 mg tablet 40 mg PO DAILY Blood Pressure 09/13/24 09/13/24 09/12/24 History
80 mg
loperamide 2 mg-simethicone 125 mg 1 tab PO Q6HPRN PRN diarrhea 09/13/24 09/13/24 09/13/24 History
tablet 5 tabs
Review of Systems
-
History Source: Patient
All other systems: Negative unless noted
Vitals / Labs / Diagnostic Testing
Vital Signs
Temp Pulse Resp BP Pulse Ox
98.3 F 85 29 101/55 94
09/15/24 07:00 09/15/24 11:22 09/15/24 11:22 09/15/24 11:22 09/15/24 11:22
Lab Data
09/15/24 05:57
09/15/24 05:57
Microbiology
09/13/24 22:18 Feces/Stool C. difficile GDH Antigen & Toxins - Final
Negative for toxigenic C.difficile
09/13/24 22:18 Feces/Stool - Final
Negative for Norovirus GI and GII.
Diagnostic Testing:
Physical Exam
-
HEENT: Normocephalic and Anicteric
Cardiovascular: S1/S2 and Peripheral Edema (negative)
Respiratory: Wheeze (negative), Rales (negative), Rhonchi (negative) and Non-Labored Respirations
GI: Soft, Non Distended, Non Tender and Normal Bowel Sounds
Neurology: Tremors (negative) and Other (Drowsy but answering questions appropriately)
Skin: Warm and Dry
General: Respiratory Distress (negative), Pain (Generalized abdominal pain), Fever (negative) and Chills (negative)
Assessment
-
Assessment: 84-year-old male with a past medical history of A-fib s/p PVI + Watchman (both performed in 2020), LAFB, left carotid artery stenosis s/p CEA (10/2023), hypertension and hyperlipidemia who presented with nausea/vomiting and diarrhea for
several days with reduced oral intake and weakness. He had not urinated in 2 days as well. Diarrhea was watery without blood or mucus. Initial creatinine was 4.3, BUN 64, and serum bicarbonate level 18. Stool cultures were ordered. CT
abdomen/pelvis showed fluid attenuation in the colon with no other acute inflammatory process in the abdomen or pelvis, and no hydronephrosis or nephrolithiasis. 2 L NS 0.9% given in the ER in addition to Tylenol and Zofran and he was admitted to
the Med-Surg for further care. Patient continued to be hypotensive and was transferred to the IMU on 09/14 and unfortunately his blood pressure continued to decline, prompting initiation of vasopressors. His metabolic acidosis also persisted
despite bicarbonate drip and he was upgraded to the ICU and senior specialist services consulted for additional management/recommendations.
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
Impression:
#Severe HUNTER due to pre-renal azotemia with severe metabolic acidosis requiring emergent HD initiation; no hydronephrosis or nephrolithiasis seen on CT abdomen/pelvis 09/13/2024
#Circulatory shock in the setting of vasoplegia from metabolic acidosis + suspected sepsis
#Gastroenteritis/diarrheal illness (reportedly developed diarrhea after eating chicken wings)
#Bandemia
#Hypokalemia
#Metabolic acidosis with increased anion gap due to severe HUNTER
#Hyperglycemia (HbA1c: 5.8)
#Large hiatal hernia
Plan:
- With worsening circulatory shock and HUNTER with metabolic acidosis, patient upgraded to ICU today and HD catheter will be inserted by IR and patient will be started on HD
- Continue with bicarbonate drip in the meantime with serial labs to continue trending HCO3 levels; also trend blood gas to monitor pH
- Low threshold to intubate if he cannot maintain respiratory rate to compensate for severe metabolic acidosis
- Replete K>4, Mg>2
- Maintain SpO2 >90-94%; currently on room air breathing comfortable
- Aspiration precautions, keeping HOB >30-45�
- Maintain MAP>65, weaning down Levophed as tolerated
- If Levophed requirements continue to rise towards 10-12 mcg/min, then start vasopressin
- Patient does not have urine to be tested and he denies SOB or cough hence unclear if antibiotics are needed - ID consulted and ceftriaxone currently ordered
- In the setting of bandemia with circulatory shock, however, I believe it is prudent to empirically give antibiotics while blood and stool cultures are pending
- If he does produce urine then would send a specimen
- Continue to trend WBC
- Maintain euglycemia with goal BG 140-180
- Trend H/H and transfuse if needed to keep Hb>7g/dL; keep plt>20k, unless there is concern for bleeding then keep plt>50k
- prn nebulized bronchodilators - not currently bronchospastic
- If patient has enough energy, would encourage him to use incentive spirometer 10x per hour for at least 4 hrs a day
- DVT ppx: HSQ
Continue ICU level of care for this critically ill patient
Critical care statement: A total of 38 minutes of critical care time was provided for this patient today. This includes management of unstable vital signs, evaluation of the patient at bedside, reviewing the patient's pertinent medical records
including radiographs, microbiology, laboratory evaluations, and discussion with primary team, consultants, pharmacy, nutrition, physical therapy, case management, charge nurse, critical care nursing, and respiratory therapy.
--- NOTE | 2024-09-15 09:07 | CON.ID ---
Consultation
-
Date/Time Consultation Requested: September 15, 2024 0737
Date/Time Consultation Performed: September 15, 2024 0900
Requesting Provider: Dr. Raj Ngo
Performing Provider: Dr. Sofi Wagoner
Reason for Consultation: HUNTER, Bandemia
Chief Complaint / Past History
Chief Complaint
Diarrhea
History of Present Illness
84-year-old male with history of atrial fibrillation, hypertension, CVA who presented to the hospital on September 13 with weakness dizziness and diarrhea. He reports profuse diarrhea started Tuesday night that persisted through Tuesday. Diarrhea
nonbloody. Positive nausea and some vomiting. No abdominal pain or cramping. Positive chills. No fevers. Had decreased urine output. He states he had chicken wings and [place] crab soup from a restaurant on Tuesday prior to the diarrheal
illness. His daughter had the [place] crab soup but not the chicken wings. Daughter is fine. In ED patient noted to be in acute renal failure. He was hypotensive which responded to IV fluids. Bandemia noted. Stool for C. difficile negative.
Stool culture pending. Overnight his blood pressure dropped. He was not making urine output. He was started on Levophed. Blood cultures x 2 obtained. He is currently not on an antibiotic. He continues to have diarrhea and has a rectal tube.
No headache. No cough. No chest pain. No rash. No recent travel.
Past History
Additional Past Medical History:
Hypertension
HLD
Atrial fibrillation
CVA
Basal cell carcinoma
Left carotid endarterectomy
Appendectomy
Bilateral TKA
Allergy History:
No Known Allergies Allergy (Verified 10/06/23 11:48)
Medications Reviewed: Yes
Current Antibiotics:
none
Social History
Tobacco: Non-Smoker
Alcohol: None
Drug: None
Living: Alone
Family History
Family History: Not Pertinent
Review of Systems
Review of Systems
General: Chills and Change in Appetite; Negative Fever
HEENT: Negative Sinus Problems or Headache
Cardiovascular: Negative Chest Pain or Dyspnea
Respiratory: Negative Dyspnea or Cough
Gasteroenterology: Diarrhea
Genital / Urological: Negative Dysuria or Flank Pain
Endocrine: Weakness and Fatigue
Musculoskeletal: Negative Myalgias
Skin / Hair / Nails: Negative Rash
Neurological: Dizziness
All systems: All other systems were reviewed and were negative
Vital Signs
Temp Pulse Resp BP Pulse Ox
98.3 F 95 25 99/58 93
09/15/24 07:00 09/15/24 07:15 09/15/24 07:15 09/15/24 07:15 09/15/24 07:15
Physical Exam
Physical Exam
Constitutional: No Acute Distress
Head: Other (No frontal or max or sinus tenderness.)
Eyes: No Conjunctival Hemorrhage and Sclera Anicteric
Cardiovascular: Regular Rate and S1/S2
Pulmonary: Clear
Gastrointestinal: Soft, Non Tender, Normal Bowel Sounds (hyperactive BS) and Other (FMS: green liquid )
Genito-Urinary: Negative CVA Tenderness
Extremities: Negative Edema
Musculoskeletal: Negative Joint Swelling or Joint Effusion
Neurological: AO x 3
Lab / Diagnostic Study Results
09/15/24 05:57
09/15/24 05:57
Total Counted 100 09/15/24 05:57
Abs Neuts (Manual) 4.3 10^3/uL (1.4-6.5) 09/15/24 05:57
Segmented Neutrophils 48 % (42-75) 09/15/24 05:57
Band Neutrophils 28 % (0-3) H D 09/15/24 05:57
Lymphocytes (Manual) 10 % (20-51) L 09/15/24 05:57
Microbiology Results
Micro:
09/15/24 08:42 Blood Culture - Pending
Blood/Venous
09/13/24 22:18 C. difficile GDH Antigen & Toxins - Final
Feces/Stool Negative for toxigenic C.difficile
- Final
Negative for Norovirus GI and GII.
09/13/24 22:18 Salmonella/Shigella Culture - Pending
Feces/Stool Campylobacter Culture - Pending
Shiga Toxin Test - Pending
09/13/24 CT a/p: Fluid attenuation in the colon most in keeping with a diarrheal illness. No other acute inflammatory process in the abdomen or pelvis within the limitations of the lack of oral and intravenous contrast.
Assessment / Plan
# Gastroenteritis/Diarrhea illness persists
# Severe pre-renal HUNTER
# Hypotension
# Bandemia
- Of note onset of diarrhea after eating chicken wings.
- C. diff neg.
- Stool cx pending
- Start ceftriaxone 1g IV q24
- Monitor stool output.
-Follow renal function.
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
Hypertension
HLD
Atrial fibrillation
CVA
Basal cell carcinoma
Left carotid endarterectomy
Appendectomy
Bilateral TKA
[2024-09-15 09:21] LABS: Estimated Creatinine Clearance 7 ml/min; eGFR 7.03
--- NOTE | 2024-09-15 09:46 | W.PN.NEPH.PH ---
Today's Communication / Plan
-
Acute dialysis
Assessment/Plan
-
84-year-old male past medical history of carotid stenosis, prior CVA, hypertension, hyperlipidemia, basal cell carcinoma, atrial fibrillation, GERD, presenting with predominantly diarrhea and some vomiting starting 2 days ago.
Renal consultation for acute kidney injury creatinine of 4 on admission increased to 5.3
Hypotensive on admission with some improvement with IV fluids
Impression.
Acute kidney injury creatinine 5.3 normal baseline
Diarrhea enteritis
hypokalemia secondary to diarrhea.
Atrial fibrillation.
Plan.
No obstructive uropathy
Urinalysis pending
Stool cultures pending.
Continue normal saline at 150 cc/h.
Urine output monitoring.
Hold lisinopril
Worsening renal function with metabolic acidosis on bicarbonate not responding no urine output
Will need acute dialysis Long discussion with the patient about risks and benefit. He agrees to proceed.
Discussed with all consultants and primary team will place a dialysis catheter via interventional radiology and dialyze today

31 minutes critical care time
-
-
Date of Service: September 15, 2024
CC / HPI / ROS
-
Chief Complaint:
Diarrhea
History of Present Illness:
Severe watery diarrhea hypotension acute kidney
Review of Systems:
Continues to have watery diarrhea. No urine output
Labs
-
Labs:
WBC 5.7 10^3/uL (4.8-10.8) 09/15/24 05:57
RBC 5.28 10^6/uL (4.70-6.10) 09/15/24 05:57
Hgb 16.5 g/dL (13.0-18.0) 09/15/24 05:57
Hct 45.4 % (39.0-52.0) 09/15/24 05:57
Plt Count 143 10^3/uL (130-400) 09/15/24 05:57
Sodium 135 mmol/L (135-145) 09/15/24 05:57
Potassium 3.4 mmol/L (3.5-5.1) L 09/15/24 05:57
Chloride 102 mmol/L (98-107) 09/15/24 05:57
Carbon Dioxide 7 mmol/L (22-30) L* 09/15/24 05:57
BUN 91 mg/dl (9-20) H 09/15/24 05:57
Creatinine 7.2 mg/dL (0.7-1.3) H* 09/15/24 05:57
eGFR 7.03 09/15/24 05:57
Glucose 205 mg/dl (70-99) H 09/15/24 05:57
Calcium 7.6 mg/dl (8.4-10.2) L 09/15/24 05:57
Phosphorus 8.0 mg/dl (2.5-4.5) H 09/15/24 05:57
Albumin 4.1 g/dl (3.5-5.0) 09/15/24 05:57
Physical Exam
-
Vital Signs:
Vital Signs
Temp Pulse Resp BP Pulse Ox
98.3 F 95 25 99/58 93
09/15/24 07:00 09/15/24 07:15 09/15/24 07:15 09/15/24 07:15 09/15/24 07:15
Respiratory:: Bilateral: CTA
Lung Excursion:: Normal
Abdomen:: Soft
Bowel Sounds:: Normal
Extremity Edema:: None: Bilateral:
Mina Catheter: No
[2024-09-15 09:49] LABS: Glycohemoglobin (HgbA1c) 5.8 % (4.0-5.6)
[2024-09-15] MEDS: HEPARIN SC (10:33)
[2024-09-15] MEDS: CRESTOR 40 MG PO (10:34)
[2024-09-15] MEDS: LOW STRENGTH ASPIRIN 81 MG PO (10:34)
[2024-09-15] MEDS: ZETIA 10 MG PO (10:34)
[2024-09-15] MEDS: PROTONIX PO (10:34)
[2024-09-15] MEDS: PROTONIX 40 MG PO (10:35)
--- NOTE | 2024-09-15 10:46 | PTCARENOTE ---
Patient is oriented, very lethargic, laying in bed. Hospitalist and nephrology MD have rounded on patient. Plan is for HD line in IR this shift and initiation of dialysis. Pt still requiring norepinephrine for MAP > 65, continues with D5W sodium
bicarb gtt per order, potassium replaced IV as well. Pt has had no urine output so far this shift, and overnight.
Blood cultures were sent down per order this morning. Pt turning self in bed, rectal trumpet remains in place, draining watery green stool.
See MAR/flowsheets for further care details.
--- NOTE | 2024-09-15 12:03 | PTCARENOTE ---
Patient transported to IR with RN and PCT
[2024-09-15 12:07] LABS: B-Hydroxybutyrate 0.11 mmol/L (0.02-0.27)
--- NOTE | 2024-09-15 13:30 | PTCARENOTE ---
Received pt back from IR on 8mcg levo. HD line with single lumen inserted in IR
[2024-09-15] MEDS: MANNITOL 25% 12.5 GRAMS IV ×2 (14:05→15:32)
[2024-09-15] MEDS: FLEXBUMIN 25% FOR HEMODIALYSIS 12.5 GRAMS IV ×2 (14:10→15:33)
[2024-09-15] MEDS: SODIUM BICARBONATE IV (15:56)
[2024-09-15] MEDS: STERILE WATER FOR INJECTION 10 ML IV (16:57)
[2024-09-15] MEDS: ROCEPHIN 1000 MG IV (16:57)
[2024-09-15 17:02] LABS: Venous Blood Gas HCO3 25.4 mmol/L (22-27); Venous Blood Gas O2 Sat % 99.7 %; Venous Blood Gas pCO2 29 mmHg (35-48); Venous Blood Gas pH 7.55 (7.32-7.43); Venous Blood Gas pO2 154 mmHg (30-50)
[2024-09-15] MEDS: NOVOLOG FLEXPEN-MODERATE RESISTANCE 1 UNITS SC ×2 (17:15→22:04)
[2024-09-15 17:22] LABS: Blood Urea Nitrogen 55 mg/dl (9-20); Carbon Dioxide 23 mmol/L (22-30); Chloride 95 mmol/L (98-107); Estimated Creatinine Clearance 12 ml/min; Glucose 130 mg/dl (70-99); Magnesium 1.7 mg/dl (1.6-2.3); Potassium 2.7 mmol/L (3.5-5.1); Sodium 134 mmol/L (135-145); eGFR 12.36
[2024-09-15 17:25] LABS: Glucose - Point of Care 150 mg/dl (70-99)
[2024-09-15] MEDS: MAG-TAB SR 84 MG PO (19:15)
[2024-09-15] MEDS: KCL ELIXIR 40 MEQ PO (19:15)
--- NOTE | 2024-09-15 19:27 | PTCARENOTE ---
Afternoon BMP was taken too soon post HD, RN reached out to melter operator in regards to results, plan is to re-check BMP at 1999. Potassium and magnesium supplementation provided even with plan to re-check bmp later this evening. Pt ending shift on
3mcg levo, bicarb gtt stopped per lab work results, pt still has large volume stool output from rectal trumpet. Pt now q6 poc glucose checks, insulin pen at bedside, see mar/flowsheets for further care details.
--- NOTE | 2024-09-15 19:40 | PTCARENOTE ---
Pt received from previous shift in bed. AAOx3, drowsy. Telemetry - SR, PACs, prolonged QT. Full physical assessment documented (refer to worklist). Levophed gtt at 3mcg via #20 LAC, titrate MAP >65. VAT RN verbalizes ok to use lumen on R non
tunneled HD cath. Labs obtained via central line. PIVsx4 flushed and patent. Call ty w/in reach. Bed alarm active for safety.
[2024-09-15] MEDS: HEPARIN 5000 UNITS SC (19:45)
[2024-09-15 20:32] LABS: Blood Urea Nitrogen 61 mg/dl (9-20); Carbon Dioxide 22 mmol/L (22-30); Chloride 94 mmol/L (98-107); Estimated Creatinine Clearance 9 ml/min; Glucose 144 mg/dl (70-99); Magnesium 1.8 mg/dl (1.6-2.3); Phosphorus 3.5 mg/dl (2.5-4.5); Potassium 2.7 mmol/L (3.5-5.1); Sodium 134 mmol/L (135-145); eGFR 8.93
[2024-09-15] MEDS: KCL 100 IV (21:17)
--- NOTE | 2024-09-15 21:30 | PTCARENOTE ---
Lab values communicated to [facility]. Electronic orders received from for IV potassium infusing via R non tunneled HD cath lumen (refer to JUN)
[2024-09-15 21:52] LABS: Glucose - Point of Care 167 mg/dl (70-99)
--- NOTE | 2024-09-15 23:11 | PTCARENOTE ---
Levo gtt titrated to maintain MAP > 65. Infusing via #20 LFA at 28 mcg (105 mL/hr). 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 Pt diaphoretic, sheets/gown damp. Assisted OOB --> chair, reports
lightheadedness. CHG bath completed, linens and gown changed. VAT RN contacted to redress R non tunneled HD cath. Pt tolerated activity, profoundly weak, refusing oral hygiene at this time. Call melony w/in reach, bed alarm active for safety.
[2024-09-15] MEDS: LEVOPHED 258 MG IV (23:52)
[2024-09-16] VITALS (72 sets, daily range): BP systolic 94–144; BP diastolic 38–82; BMI 27.3
--- NOTE | 2024-09-16 | PTCARENOTE ---
Assessment unchanged from previous. Offers no complaints. Levophed gtt infusing via R non tunneled HD cath pigtail (refer to flowsheet).
--- NOTE | 2024-09-16 00:09 | PTCARENOTE ---
Room air SpO2 86-91% while asleep. Placed on 2L O2 --> SpO2 94% (electronic order received).
[2024-09-16 01:27] LABS: Blood Urea Nitrogen 66 mg/dl (9-20); Carbon Dioxide 20 mmol/L (22-30); Chloride 97 mmol/L (98-107); Glucose 196 mg/dl (70-99); Potassium 3.1 mmol/L (3.5-5.1); Sodium 135 mmol/L (135-145)
[2024-09-16] MEDS: KCL 100 IV (01:43)
[2024-09-16 01:44] LABS: Estimated Creatinine Clearance 8 ml/min; eGFR 8.25
--- NOTE | 2024-09-16 02:37 | PTCARENOTE ---
Pt voided 100 mL carlos/tea urine. Specimen sent
[2024-09-16 03:13] LABS: Urine Albumin 2+ (Neg - Trace); Urine Bilirubin 2+ (Negative); Urine Character Clear (Clear); Urine Color Amber; Urine Glucose Negative (Negative); Urine Ketone Negative (Negative); Urine Leukocyte 1+ (Negative); Urine Nitrite Negative (Negative); Urine Occult Blood 2+ (Negative); Urine Specific Gravity 1.025 (<1.030); Urine Urobilinogen Negative (Neg - 1+)
--- NOTE | 2024-09-16 04:51 | PTCARENOTE ---
Assessment unchanged from previous. Titrating levophed gtt down to maintain MAP > 65. Rectal trumpet replaced. Liquid watery green stools. Call melony w/in reach.
[2024-09-16] MEDS: LEVOPHED 258 MG IV (05:19)
[2024-09-16 05:49] LABS: Urine Amorphous Seen; Urine Bacteria Many (Negative); Urine Hyaline Cast >15 /LPF (0-2); Urine Mucus Many; Urine Squamous Cell >30 /LPF (Few)
[2024-09-16 06:03] LABS: Hematocrit 45.8 % (39.0-52.0); Hemoglobin 16.7 g/dL (13.0-18.0); Mean Corp Hgb Conc. 36.5 g/dL (33.0-37.0); Mean Platelet Volume 11.7 fL (7.4-10.4); Platelet Count 149 10^3/uL (130-400); Red Blood Cell Count 5.39 10^6/uL (4.70-6.10); Red Cell Dist. Width 13.2 % (11.5-14.5); White Blood Cell Count 8.1 10^3/uL (4.8-10.8)
[2024-09-16 06:04] LABS: Urine Urothelial Cell >30 /LPF (FEW); Urine White Cell >100 /HPF (0-5)
[2024-09-16 06:20] LABS: Blood Urea Nitrogen 70 mg/dl (9-20); Calcium 8.2 mg/dl (8.4-10.2); Carbon Dioxide 21 mmol/L (22-30); Chloride 98 mmol/L (98-107); Glucose 176 mg/dl (70-99); Magnesium 2.1 mg/dl (1.6-2.3); Phosphorus 5.1 mg/dl (2.5-4.5); Potassium 3.7 mmol/L (3.5-5.1); Sodium 138 mmol/L (135-145)
[2024-09-16 06:32] LABS: Estimated Creatinine Clearance 8 ml/min; eGFR 7.53
[2024-09-16] MEDS: KCL 50 IV (06:37)
--- NOTE | 2024-09-16 07:55 | W.PN.HOSP.TC ---
Today's Communication/Plan
-
see plan
Assessment / Plan
Assessment / Plan
Gen: NAD, AAOx3.
Eyes: EOMI, PERRLA, no scleral icterus.
Neck: supple.
CV: remains RRR, +S1/S2, no m/r/g.
Resp: CTAB anteriorly, no rales, wheezes, or rhonchi.
Abd: remains +BS, soft, NT, ND
Skin: No rashes.
Neuro: CN 2-12 intact, non-focal.
Psych: Normal mood and affect.
09/15/24 10:08 Blood/Venous Blood Culture - Preliminary
Positive culture in progress
09/15/24 10:08 Blood/Venous Gram Stain - Final
09/15/24 08:42 Blood/Venous Blood Culture - Preliminary
Positive culture in progress
09/15/24 08:42 Blood/Venous Gram Stain - Final
09/13/24 22:18 Feces/Stool Salmonella/Shigella Culture - Preliminary
Culture in Progress
09/13/24 22:18 Feces/Stool Campylobacter Culture - Preliminary
Culture in Progress
09/13/24 22:18 Feces/Stool C. difficile GDH Antigen & Toxins - Final
Negative for toxigenic C.difficile
09/13/24 22:18 Feces/Stool - Final
Negative for Norovirus GI and GII.
CT A/P: Fluid attenuation in the colon most in keeping with a diarrheal illness. No other acute inflammatory process in the abdomen or pelvis within the limitations of the lack of oral and intravenous contrast.
Septic shock due to acute enterocolitis with bacteremia:
-CT A/P above
-C. difficile/Norovirus NEG
-diet as tolerated
-with bandemia, 1 dose Vanco/Cefepime given 09/15/24AM, now on empiric Rocephin as per ID
-BCxs now with GNR
-cont Levophed for hypovolemic and septic shock
-500cc NS bolus then NS @ 125cc/hr
Severe prerenal HUNTER:
-Cr continued to worsen. Patient also had worsening anion gap metabolic acidosis despite bicarb gtt and no UOP.
-HD started 09/15/24
-Home ACEi/Norvasc stopped
Paroxysmal atrial fibrillation:
-Tikosyn stopped with HUNTER
-cardiology following
Other problems:
Hypokalemia, resolved
Hypomagnesemia, resolved
NITZA s/p CEA
h/o CVA: cont ASA/statin
Essential hypertension: currently hypotensive on Levophed
HLD: Cont Zetia/statin
h/o Basal cell carcinoma
GERD: Cont PPI
Discussed with renal, critical care, RN, ID.
FULL/heparin
Total critical care time spent = 32 min.
Anticipated Discharge: > 48 hours
Subjective/Interval History
-
Date of Service: September 16, 2024
Denies CP/SOB/abd pain. Still with profuse diarrhea.
Objective Data
-
Labs:
Laboratory Results
09/15/24 09/15/24 09/16/24
18:33 19:55 01:04
WBC
Hgb
Hct
Plt Count
Sodium Cancelled 134 L 135
Potassium Cancelled 2.7 L* 3.1 L
Chloride Cancelled 94 L 97 L
Carbon Dioxide Cancelled 22 20 L
BUN Cancelled 61 H 66 H
Creatinine Cancelled 5.9 H* 6.3 H*
Glucose Cancelled 144 H 196 H
Calcium Cancelled 8.0 L 8.0 L
09/16/24 09/16/24
05:44 12:00
WBC 8.1
Hgb 16.7
Hct 45.8
Plt Count 149
Sodium 138 Pending
Potassium 3.7 Pending
Chloride 98 Pending
Carbon Dioxide 21 L Pending
BUN 70 H Pending
Creatinine 6.8 H* Pending
Glucose 176 H Pending
Calcium 8.2 L Pending
Vital Signs:
Vital Signs
Temp Pulse Resp BP Pulse Ox
97.2 F 92 23 131/80 94
09/16/24 07:23 09/16/24 07:30 09/16/24 07:30 09/16/24 07:30 09/16/24 07:30
I&O
09/15/24 09/16/24 09/17/24
06:59 06:59 06:59
Intake Total 1957.5 / 1957.5 3965.3 / 3995.3
Output Total 815 / 815 6600 / 6600
Balance 1142.5 / 1142.5 -2634.7 / -2604.7
--- NOTE | 2024-09-16 07:59 | W.PN.INTV ---
Today's Communication / Plan
Recommendations
Continue HD per nephrology
Antibiotics per ID
Trend WBC and monitor for fever
Check surveillance blood cultures today x 1 set
Follow-up sensitivities of blood culture from 09/15 which is growing Salmonella
Pain control
Encourage incentive spirometer use, as tolerated given he has exquisite fatigue
Continue ICU level of care for this critically ill patient
Assessment
-
Assessment: 84-year-old male with a past medical history of A-fib s/p PVI + Watchman (both performed in 2020), LAFB, left carotid artery stenosis s/p CEA (10/2023), hypertension and hyperlipidemia who presented with nausea/vomiting and diarrhea for
several days with reduced oral intake and weakness. He had not urinated in 2 days as well. Diarrhea was watery without blood or mucus. Initial creatinine was 4.3, BUN 64, and serum bicarbonate level 18. Stool cultures were ordered. CT
abdomen/pelvis showed fluid attenuation in the colon with no other acute inflammatory process in the abdomen or pelvis, and no hydronephrosis or nephrolithiasis. 2 L NS 0.9% given in the ER in addition to Tylenol and Zofran and he was admitted to
the Med-Surg for further care. Patient continued to be hypotensive and was transferred to the IMU on 09/14 and unfortunately his blood pressure continued to decline, prompting initiation of vasopressors. His metabolic acidosis also persisted
despite bicarbonate drip and he was upgraded to the ICU and hospice home health aide services consulted for additional management/recommendations.
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
Impression:
#Severe HUNTER due to pre-renal azotemia with severe metabolic acidosis requiring emergent HD initiation on 09/15; no hydronephrosis or nephrolithiasis seen on CT abdomen/pelvis 09/13/2024
#Circulatory shock in the setting of vasoplegia from metabolic acidosis + sepsis
#Gastroenteritis/diarrheal illness (reportedly developed diarrhea after eating chicken wings) with Salmonella species seen on blood cultures from 09/15/2024
#Bandemia
#Hypokalemia
#Metabolic acidosis with increased anion gap due to severe HUNTER
#Hyperglycemia (HbA1c: 5.8)
#Large hiatal hernia
Plan:
- With worsening circulatory shock and HUNTER with metabolic acidosis, patient upgraded to ICU on 09/15 and HD catheter inserted by IR and patient was started on HD
- Bicarbonate drip was stopped as his blood gas on the evening of 09/15 showed he was alkalotic with pH 7.55
- Continue to trend serum bicarbonate level
- Low threshold to intubate if he cannot maintain respiratory rate to compensate for severe metabolic acidosis
- Replete K>4, Mg>2
- Maintain SpO2 >90-94%; currently on room air breathing comfortable
- Aspiration precautions, keeping HOB >30-45�
- Maintain MAP>65, weaning down Levophed as tolerated
- If Levophed requirements continue to rise towards 10-12 mcg/min, then start vasopressin (currently vaso is ordered but not running)
- Patient is now starting to produce very small amounts of urine (as of 09/16); denies SOB or cough
- Blood cultures from 09/15/2024 are positive for Salmonella species; suspect that this is related to his recent ingestion of chicken wings with food poisoning
- ID consulted and ceftriaxone will continue
- Urinalysis checked today (09/16) shows >100 urine WBC
- Continue to trend WBC
- Maintain euglycemia with goal BG 140-180
- Trend H/H and transfuse if needed to keep Hb>7g/dL; keep plt>20k, unless there is concern for bleeding then keep plt>50k
- prn nebulized bronchodilators - not currently bronchospastic
- If patient can tolerate, would encourage him to use incentive spirometer 10x per hour for at least 4 hrs a day
- DVT ppx: HSQ
Continue ICU level of care for this critically ill patient
Critical care statement: A total of 42 minutes of critical care time was provided for this patient today. This includes management of unstable vital signs, evaluation of the patient at bedside, reviewing the patient's pertinent medical records
including radiographs, microbiology, laboratory evaluations, and discussion with primary team, consultants, pharmacy, nutrition, physical therapy, case management, charge nurse, critical care nursing, and respiratory therapy.
Subjective Dataa
Subjective Data
Date of Service:
Date of Service: September 16, 2024
Chief Complaint: Display Associate Follow Up
Subjective:
Patient seen today at bedside. Getting dialysis again this morning. Levophed currently at 4 mcg/min and was as high as 28 mcg/min overnight. Currently on room air saturating 94% with heart rate 93 and BP 109/56. He has abdominal discomfort but
no pain and no chest pain, shortness of breath. Blood cultures from yesterday are growing Salmonella spp.
Review of Systems
General: Other (Negative unless mentioned above)
Objective Data
Data Reviewed
Vital Signs / I&O / Oxygen:
Vital Signs
Temp Pulse Resp BP Pulse Ox
97.2 F 88 23 113/63 96
09/16/24 07:23 09/16/24 09:45 09/16/24 09:45 09/16/24 09:45 09/16/24 09:15
Intake and Output
09/15/24 09/16/24 09/17/24
06:59 06:59 06:59
Intake Total 1957.5 / 1957.5 3965.3 / 3995.3 1192.6 / 1192.6
Output Total 815 / 815 6600 / 6600 0 / 0
Balance 1142.5 / 1142.5 -2634.7 / -2604.7 1192.6 / 1192.6
SaO2 96
Nasal Cannula flow liters per 2
minute
Physical Exam
General: Respiratory Distress (negative), Comfortable, Chills (negative) and Sweats (negative)
HEENT: Normocephalic and Anicteric
Cardiovascular: S1-S2 and Peripheral Edema (negative)
Respiratory: Wheeze (negative), Crackles (negative), Rhonchi (negative) and Non-Labored Respirations
GI: Soft, Non Distended, Non Tender and Normal Bowel Sounds
Neurology: Awake, Tremors (negative) and Other (Drowsy at times)
Skin: Warm, Dry, Cyanosis (negative) and Jaundice (negative)
Labs/Micro/Reports
Lab Data
09/16/24 05:44
Microbiology
09/15/24 08:42 Blood/Venous Blood Culture - Preliminary
Salmonella species
09/15/24 08:42 Blood/Venous Gram Stain - Final
09/15/24 10:08 Blood/Venous Blood Culture - Preliminary
Positive culture in progress
09/15/24 10:08 Blood/Venous Gram Stain - Final
09/13/24 22:18 Feces/Stool Salmonella/Shigella Culture - Preliminary
Culture in Progress
09/13/24 22:18 Feces/Stool Campylobacter Culture - Preliminary
Culture in Progress
09/13/24 22:18 Feces/Stool C. difficile GDH Antigen & Toxins - Final
Negative for toxigenic C.difficile
09/13/24 22:18 Feces/Stool - Final
Negative for Norovirus GI and GII.
[2024-09-16] MEDS: MANNITOL 25% 12.5 GRAMS IV ×2 (08:33→09:39)
[2024-09-16] MEDS: FLEXBUMIN 25% FOR HEMODIALYSIS 12.5 GRAMS IV ×2 (08:33→09:39)
[2024-09-16 08:37] LABS: Absolute Neutrophils -Man Diff 6.3 10^3/uL (1.4-6.5); Band Neutrophils 18 % (0-3); Lymphocytes 6 % (20-51); Monocytes 15 % (2-9); Normal RBC Morphology Yes; Platelets Checked Yes; Segmented Neutrophils 61 % (42-75); Total Cells Counted 100
[2024-09-16] MEDS: NSS 500 IV (08:40)
[2024-09-16 08:52] LABS: Glucose - Point of Care 159 mg/dl (70-99)
[2024-09-16] MEDS: NOVOLOG FLEXPEN-MODERATE RESISTANCE 1 UNITS SC (08:53)
--- NOTE | 2024-09-16 08:59 | PTCARENOTE ---
Patient had preliminary blood cultures come back and results were relayed to hospitalist . Pt receiving bolus of 500cc NS and then will be placed on some maintenance IVF, per order. RN has been able to come down on norepinephrine requirements
since start of shift. Pt is currently on HD, voiding via urinal and rectal trumpet for continued large volume diarrhea. See Mar/flowsheets for further care details.
[2024-09-16] MEDS: NSS 1000 IV ×3 (09:43→20:28)
--- NOTE | 2024-09-16 09:58 | W.PN.ID1 ---
Date of Service
Date of Service: September 16, 2024
Today's Communication
See below.
Assessment / Plan
# Complicated Salmonella gastroenteritis with bacteremia
. Of note onset of diarrhea after eating chicken wings.
# Severe pre-renal HUNTER
. HD started 09/16
# Septic shock on pressor
# Bandemia
- Await Stool cx - pending
-Repeat blood cx's
- Increase ceftriaxone dose to 2g IV q24
- Monitor stool output.
- Follow vitals.
- Contact isolation until diarrhea resolves.
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
Hypertension
HLD
Atrial fibrillation
CVA
Basal cell carcinoma
Left carotid endarterectomy
Appendectomy
Bilateral TKA
Chief Complaint
-: Bacteremia and Other (diarrhea)
Subjective / Review of Systems
Still with diarrhea.
Started dialysis today.
Vital Signs / Physical Exam
Vital Signs
Vital Signs
Temp Pulse Resp BP Pulse Ox
97.2 F 88 23 113/63 96
09/16/24 07:23 09/16/24 09:45 09/16/24 09:45 09/16/24 09:45 09/16/24 09:15
Physical Exam
Constitutional: Non-toxic
Eyes: Sclera Anicteric
Cardiovascular: Regular Rate and S1/S2
Pulmonary: Clear
Gastrointestinal: Soft, Non Tender, Non Distended, Normal Bowel Sounds and Other (rectal tube with liquid stool)
Genito-Urinary: Negative CVA Tenderness
Extremities: Negative Edema
Neurological: AO x 3
Lines: HD Cath
Objective Data
Lab Data
Lab Results
09/16/24 05:44
Estimated Creat Clear 8 ml/min 09/16/24 05:44
Total Bilirubin Cancelled 09/15/24 17:49
AST Cancelled 09/15/24 17:49
ALT Cancelled 09/15/24 17:49
Alkaline Phosphatase Cancelled 09/15/24 17:49
Most recent labs reviewed.
Micro Results:
09/15/24 08:42 Blood Culture - Preliminary
Blood/Venous Salmonella species
Gram Stain - Final
09/15/24 10:08 Blood Culture - Preliminary
Blood/Venous Positive culture in progress
Gram Stain - Final
09/13/24 22:18 Salmonella/Shigella Culture - Preliminary
Feces/Stool Culture in Progress
Campylobacter Culture - Preliminary
Culture in Progress
Shiga Toxin Test - Pending
09/13/24 22:18 C. difficile GDH Antigen & Toxins - Final
Feces/Stool Negative for toxigenic C.difficile
- Final
Negative for Norovirus GI and GII.
09/13/24 CT a/p: Fluid attenuation in the colon most in keeping with a diarrheal illness. No other acute inflammatory process in the abdomen or pelvis within the limitations of the lack of oral and intravenous contrast.
Care Review
Plan reviewed with: Physician (Dr. Ngo)
[2024-09-16] MEDS: STERILE WATER FOR INJECTION IV (10:49)
[2024-09-16] MEDS: ROCEPHIN IV (10:49)
[2024-09-16] MEDS: ZETIA 10 MG PO (11:47)
[2024-09-16] MEDS: CRESTOR 40 MG PO (11:47)
[2024-09-16] MEDS: LOW STRENGTH ASPIRIN 81 MG PO (11:48)
[2024-09-16] MEDS: HEPARIN 5000 UNITS SC ×2 (11:48→20:18)
[2024-09-16] MEDS: TYLENOL 650 MG PO ×2 (11:49→20:30)
[2024-09-16] MEDS: PROTONIX 40 MG PO (11:49)
[2024-09-16] MEDS: STERILE WATER FOR INJECTION 20 ML IV (11:53)
[2024-09-16] MEDS: ROCEPHIN 2000 MG IV (11:53)
[2024-09-16 12:17] LABS: Glucose - Point of Care 118 mg/dl (70-99)
[2024-09-16] MEDS: NOVOLOG FLEXPEN-MODERATE RESISTANCE SC ×3 (12:19→22:06)
--- NOTE | 2024-09-16 12:22 | PTCARENOTE ---
Patient down to 4mcg of norepinephrine, HD session completed, pt's daughter updated over the phone per pt's wishes. Pt is now on IVF. Repeat chemistry lab work later this afternoon.
--- NOTE | 2024-09-16 14:36 | W.PN.NEPH.HD ---
Assessment
-
Second dialysis treatment today tolerated
Progress Note - Hemodialysis
-
Date of Service: September 16, 2024
Duration: 3 hours
Potassium Bath: 4
Calcium Bath: 2.5
Opti-Dialyzer: 160
Blood Flow: 300
Dialysate Flow: 600
Heparin: No no
EPO: No
--- NOTE | 2024-09-16 14:37 | W.PN.NEPH.PH ---
Today's Communication / Plan
-
Dialysis completed
Will reevaluated tomorrow for need for dialysis otherwise likely Tuesday
Assessment/Plan
-
84-year-old male past medical history of carotid stenosis, prior CVA, hypertension, hyperlipidemia, basal cell carcinoma, atrial fibrillation, GERD, presenting with predominantly diarrhea and some vomiting starting 2 days ago.
Renal consultation for acute kidney injury creatinine of 4 on admission increased to 5.3
Hypotensive on admission with some improvement with IV fluids
Impression.
Acute kidney injury creatinine 5.3 normal baseline
Diarrhea enteritis
hypokalemia secondary to diarrhea.
Atrial fibrillation.
Plan.
No obstructive uropathy
Urinalysis pending
Salmonella bacteremia GI source
Continue normal saline at 150 cc/h.
Urine output monitoring.
Hold lisinopril
Prerenal HUNTER from severe diarrhea 6.5 L out of the last 24-hour
Acute dialysis 09/15/2024, Joe catheter placed 5 09/15 by IR
Had second treatment today tolerated
Will hold dialysis for tomorrow and will reevaluate on a daily basis
Patient stated he urinated for the first time since admission
Discussed with the patient

31 minutes critical care time
-
-
Date of Service: September 16, 2024
CC / HPI / ROS
-
Chief Complaint:
Diarrhea
History of Present Illness:
Severe watery diarrhea, Salmonella/ hypotension acute kidney prerenal requiring pressors
Review of Systems:
Continues to have watery diarrhea. Very minimal urine output no documentation
Labs
-
Labs:
WBC 8.1 10^3/uL (4.8-10.8) 09/16/24 05:44
RBC 5.39 10^6/uL (4.70-6.10) 09/16/24 05:44
Hgb 16.7 g/dL (13.0-18.0) 09/16/24 05:44
Hct 45.8 % (39.0-52.0) 09/16/24 05:44
Plt Count 149 10^3/uL (130-400) 09/16/24 05:44
eGFR 7.53 09/16/24 05:44
Phosphorus 5.1 mg/dl (2.5-4.5) H 09/16/24 05:44
Albumin Cancelled 09/15/24 17:49
Physical Exam
-
Vital Signs:
Vital Signs
Temp Pulse Resp BP Pulse Ox
97.8 F 94 24 109/61 94
09/16/24 11:36 09/16/24 14:15 09/16/24 14:15 09/16/24 14:00 09/16/24 14:15
[2024-09-16 15:00] LABS: Blood Urea Nitrogen 39 mg/dl (9-20); Calcium 8.3 mg/dl (8.4-10.2); Carbon Dioxide 22 mmol/L (22-30); Chloride 101 mmol/L (98-107); Estimated Creatinine Clearance 12 ml/min; Glucose 141 mg/dl (70-99); Potassium 3.2 mmol/L (3.5-5.1); Sodium 137 mmol/L (135-145); eGFR 12.04
--- NOTE | 2024-09-16 15:23 | PTCARENOTE ---
Reached out to hospitalist and tank car inspector in regards to low potassium on afternoon chemistry. Telephone order form for IV potassium 40 mEq NOW and at 1999 sent to pharmacy per MD Ngo.
[2024-09-16] MEDS: KCL 270 MEQ IV ×2 (16:06→20:19)
[2024-09-16 18:09] LABS: Glucose - Point of Care 132 mg/dl (70-99)
--- NOTE | 2024-09-16 20:00 | PTCARENOTE ---
rec`d pt at 1900. AAOx3. fluids continued. potassium being repleted, levo gtt continued. complains of headache which has been on and off during his stay. prn Tylenol given. SR on monitor. RA POX 94%. rectal trumpet draining a large amount of green,
watery,stool. uses urinal as needed but pt is oliguric. skin c/d/i. call ty in reach, safe environment maintained.
[2024-09-16 22:05] LABS: Glucose - Point of Care 120 mg/dl (70-99)
[2024-09-17] VITALS (39 sets, daily range): BP systolic 97–147; BP diastolic 43–77; BMI 27.3
[2024-09-17] MEDS: LEVOPHED 258 MG IV (00:56)
--- NOTE | 2024-09-17 01:00 | PTCARENOTE ---
pt reassessed. no changes in pt assessment. 1,600cc out of rectal trumpet. green, liquid stool. call ty in reach, safe environment maintained.
[2024-09-17] MEDS: NSS 1000 IV ×2 (04:56→13:54)
[2024-09-17 05:08] LABS: Hematocrit 45.3 % (39.0-52.0); Hemoglobin 15.7 g/dL (13.0-18.0); Mean Corp Hgb Conc. 34.7 g/dL (33.0-37.0); Mean Corpuscular Hgb 30.5 pg (27.0-31.0); Mean Platelet Volume 12.2 fL (7.4-10.4); Platelet Count 111 10^3/uL (130-400); Red Blood Cell Count 5.15 10^6/uL (4.70-6.10); Red Cell Dist. Width 13.6 % (11.5-14.5); White Blood Cell Count 7.6 10^3/uL (4.8-10.8)
[2024-09-17 05:31] LABS: Blood Urea Nitrogen 54 mg/dl (9-20); Calcium 8.3 mg/dl (8.4-10.2); Carbon Dioxide 21 mmol/L (22-30); Chloride 104 mmol/L (98-107); Estimated Creatinine Clearance 9 ml/min; Glucose 119 mg/dl (70-99); Potassium 4.1 mmol/L (3.5-5.1); Sodium 138 mmol/L (135-145); eGFR 8.93
[2024-09-17] MEDS: ZETIA 10 MG PO (07:24)
[2024-09-17] MEDS: CRESTOR 40 MG PO (07:24)
[2024-09-17] MEDS: PROTONIX 40 MG PO (07:24)
[2024-09-17] MEDS: HEPARIN 5000 UNITS SC ×2 (07:24→20:00)
[2024-09-17] MEDS: LOW STRENGTH ASPIRIN 81 MG PO (07:24)
[2024-09-17 07:32] LABS: Glucose - Point of Care 98 mg/dl (70-99)
[2024-09-17] MEDS: NOVOLOG FLEXPEN-MODERATE RESISTANCE SC (07:33)
--- NOTE | 2024-09-17 07:45 | PTCARENOTE ---
pt received from previous rn- aox4, nsr with pvcs and 1st degree on monitor, room air. pt with no complaints at this time. rectal tube draining green stool. pt turns and repositions self. levophed off, map>65. pt educated on plan of care,
verbalized understanding. all safety precautions in place, call ty within reach.
--- NOTE | 2024-09-17 07:45 | PTCARENOTE ---
pt received from previous rn- aox4, nsr with pvcs and 1st degree on monitor, room air. pt with no complaints at this time. rectal tube draining green to brown stool. pt turns and repositions self. levophed off, map>65. pt educated on plan of care,
verbalized understanding. all safety precautions in place, call ty within reach.
[2024-09-17 08:06] LABS: % Basophils 0.1 % (0-2); % Eosinophils 0.4 % (0-6); % Immature Granulocytes 1.3 % (0-0.5); % Lymphocytes 4.3 % (20.5-51.1); % Monocytes 11.2 % (1.7-9.3); % Neutrophils 82.7 % (42.2-75.2); Absolute Immature Granulocytes 0.1 10^3/uL (0-0.05); Absolute Lymphocytes 0.3 10^3/uL (1.2-3.4); Absolute Monocytes 0.9 10^3/uL (0.1-0.6); Absolute Neutrophils 6.3 10^3/uL (1.4-6.5); Nucleated Red Blood Cells % 0 % (-)
--- NOTE | 2024-09-17 09:35 | W.PN.HOSP.TC ---
Today's Communication/Plan
-
see bold
Assessment / Plan
Assessment / Plan
CT A/P: Fluid attenuation in the colon most in keeping with a diarrheal illness. No other acute inflammatory process in the abdomen or pelvis within the limitations of the lack of oral and intravenous contrast.
Septic shock due to acute enterocolitis with bacteremia:
-CT A/P above
-C. difficile/Norovirus NEG
-Status post vancomycin and cefepime on 09/15/2024
-Appreciate ID input, continue high-dose empiric Rocephin
- Appreciate assistant director of security input, continue IV fluids, low-dose Levophed, wean Levophed as tolerated
Severe prerenal HUNTER:
-Cr continued to worsen. Patient also had worsening anion gap metabolic acidosis despite bicarb gtt and no UOP.
-Appreciate advertising dispatch clerks supervisor input, HD started 09/15/24
-Continue dialysis as per nephrology
-Home ACEi/Norvasc stopped
Paroxysmal atrial fibrillation:
-Appreciate cardiology input, Tikosyn stopped with HUNTER
Other problems:
Hypokalemia, resolved
Hypomagnesemia, resolved
NITZA s/p CEA
h/o CVA: cont ASA/statin
Essential hypertension: currently hypotensive on Levophed
HLD: Cont Zetia/statin
h/o Basal cell carcinoma
GERD: Cont PPI
DVT prophylaxis�subcu heparin
Full code
Total time spent to see the patient on the floor, examine the patient, review data and lab results, discuss treatment plan with patient, nursing staff around 45 minutes.
Physical exam
Gen: NAD, AAOx3.
Eyes: EOMI, PERRLA, no scleral icterus.
Neck: supple.
CV: remains RRR, +S1/S2, no m/r/g.
Resp: CTAB anteriorly, no rales, wheezes, or rhonchi.
Abd: remains +BS, soft, NT, ND
Skin: No rashes.
Neuro: CN 2-12 intact, non-focal.
Psych: Normal mood and affect.
Anticipated Discharge: > 48 hours
Subjective/Interval History
-
Date of Service: September 17, 2024
Patient reports feeling better. He denies abdominal pain. Denies chest pain, denies shortness of breath. No fever, no vomiting. He continues to have diarrhea. No lightheadedness, no dizziness.
Objective Data
-
Labs:
Laboratory Results
09/17/24
04:47
WBC 7.6
Hgb 15.7
Hct 45.3
Plt Count 111 L D
Sodium 138
Potassium 4.1 D
Chloride 104
Carbon Dioxide 21 L
BUN 54 H
Creatinine 5.9 H*
Glucose 119 H
Calcium 8.3 L
Vital Signs:
Vital Signs
Temp Pulse Resp BP Pulse Ox
98 F 84 23 130/72 96
09/17/24 07:45 09/17/24 07:45 09/17/24 07:45 09/17/24 07:30 09/17/24 07:45
I&O
09/16/24 09/17/24 09/18/24
06:59 06:59 06:59
Intake Total 3965.3 / 3995.3 4761.4 / 4890.2 253.8 / 253.8
Output Total 6600 / 6600 4200 / 4200
Balance -2634.7 / -2604.7 561.4 / 690.2 253.8 / 253.8
--- NOTE | 2024-09-17 10:06 | W.PN.NEPH.PH ---
Today's Communication / Plan
-
HD tomorrow
cont IVF and follow labs
Assessment/Plan
-
84-year-old male past medical history of carotid stenosis, prior CVA, hypertension, hyperlipidemia, basal cell carcinoma, atrial fibrillation, GERD, presenting with predominantly diarrhea and some vomiting starting 2 days ago.
Renal consultation for acute kidney injury creatinine of 4 on admission increased to 5.3
Hypotensive on admission with some improvement with IV fluids
Impression.
Acute kidney injury creatinine 5.3 normal baseline
Diarrhea enteritis
hypokalemia secondary to diarrhea.
Atrial fibrillation.
Plan.
possible prerenal progressed to ischemic ATN
UA bacteruria sample, No obstructive uropathy, anuric still
HD started on 09/15 for severe acidosis last HD 09/16
next HD tomorrow with no UF as he still has sig GI loss of 4lit
Salmonella bacteremia GI source
Continue normal saline at 150 cc/h, adjust rate acoordingly
BP stable off pressors this morning
adjust meds for GFR<10cc/min
d/w pt and nursing
-
-
Date of Service: September 17, 2024
CC / HPI / ROS
-
Chief Complaint:
Diarrhea
History of Present Illness:
Severe watery diarrhea, Salmonella/ hypotension off pressors this am
diarrhea slowly improving
no fever
k normal, bicarb 21
Review of Systems:
Continues to have watery diarrhea. no UOP today
abd bloating with out pain
Labs
-
Labs:
WBC 7.6 10^3/uL (4.8-10.8) 09/17/24 04:47
RBC 5.15 10^6/uL (4.70-6.10) 09/17/24 04:47
Hgb 15.7 g/dL (13.0-18.0) 09/17/24 04:47
Hct 45.3 % (39.0-52.0) 09/17/24 04:47
Plt Count 111 10^3/uL (130-400) L D 09/17/24 04:47
Sodium 138 mmol/L (135-145) 09/17/24 04:47
Potassium 4.1 mmol/L (3.5-5.1) D 09/17/24 04:47
Chloride 104 mmol/L (98-107) 09/17/24 04:47
Carbon Dioxide 21 mmol/L (22-30) L 09/17/24 04:47
BUN 54 mg/dl (9-20) H 09/17/24 04:47
Creatinine 5.9 mg/dL (0.7-1.3) H* 09/17/24 04:47
eGFR 8.93 09/17/24 04:47
Glucose 119 mg/dl (70-99) H 09/17/24 04:47
Calcium 8.3 mg/dl (8.4-10.2) L 09/17/24 04:47
Phosphorus 5.1 mg/dl (2.5-4.5) H 09/16/24 05:44
Albumin Cancelled 09/15/24 17:49
Physical Exam
-
Vital Signs:
Vital Signs
Temp Pulse Resp BP Pulse Ox
98 F 84 23 130/72 96
09/17/24 07:45 09/17/24 07:45 09/17/24 07:45 09/17/24 07:30 09/17/24 07:45
Cardiovascular:: Regular rate and rhythm
Respiratory:: Bilateral: CTA
Lung Excursion:: Normal
Abdomen:: Nontender and Soft
Extremity Edema:: None: Bilateral:
Mina Catheter: No
--- NOTE | 2024-09-17 10:33 | W.PN.ID1 ---
Date of Service
Date of Service: September 17, 2024
Today's Communication
Continue ceftriaxone.
Assessment / Plan
# Complicated Salmonella gastroenteritis with bacteremia
. Of note onset of diarrhea after eating chicken wings.
# Severe pre-renal HUNTER
. HD started 09/16
# Septic shock on weaning 1 pressor
# Bandemia
- Stool cx: + salmonella
-Repeat blood cx's pending
- Continue ceftriaxone 2g IV q24 (d3)
-stool output decreasing
- Follow vitals.
- Contact isolation until diarrhea resolves.
# Conditions CNA PER DIEM
Hypertension
HLD
Atrial fibrillation
CVA
Basal cell carcinoma
Left carotid endarterectomy
Appendectomy
Bilateral TKA
Chief Complaint
-: Bacteremia and Other (diarrhea)
Subjective / Review of Systems
Still with diarrhea. Voided today.
Vital Signs / Physical Exam
Vital Signs
Vital Signs
Temp Pulse Resp BP Pulse Ox
98 F 79 21 121/70 96
09/17/24 07:45 09/17/24 10:30 09/17/24 10:30 09/17/24 10:30 09/17/24 10:30
Physical Exam
Constitutional: Non-toxic
Eyes: Sclera Anicteric
Cardiovascular: Regular Rate and S1/S2
Pulmonary: Clear
Gastrointestinal: Soft, Non Tender, Non Distended, Normal Bowel Sounds and Other (rectal tube with liquid stool)
Genito-Urinary: Negative CVA Tenderness
Extremities: Negative Edema
Neurological: AO x 3
Lines: HD Cath
Objective Data
Lab Data
Lab Results
09/17/24 04:47
09/17/24 04:47
Estimated Creat Clear 9 ml/min 09/17/24 04:47
Total Bilirubin Cancelled 09/15/24 17:49
AST Cancelled 09/15/24 17:49
ALT Cancelled 09/15/24 17:49
Alkaline Phosphatase Cancelled 09/15/24 17:49
Most recent labs reviewed.
Micro Results:
09/13/24 22:18 Salmonella/Shigella Culture - Final
Feces/Stool Salmonella species
Campylobacter Culture - Final
No Campylobacter species isolated.
Shiga Toxin Test - Final
No E. coli Shiga Toxin 1 or 2 detected.
09/15/24 10:08 Blood Culture - Preliminary
Blood/Venous Salmonella species
Gram Stain - Final
09/15/24 08:42 Blood Culture - Preliminary
Blood/Venous Salmonella species
Gram Stain - Final
09/17/24 04:47 Blood Culture - Pending
Blood/Venous
09/16/24 10:46 Blood Culture - Pending
Blood/Venous
09/13/24 22:18 C. difficile GDH Antigen & Toxins - Final
Feces/Stool Negative for toxigenic C.difficile
- Final
Negative for Norovirus GI and GII.
09/13/24 CT a/p: Fluid attenuation in the colon most in keeping with a diarrheal illness. No other acute inflammatory process in the abdomen or pelvis within the limitations of the lack of oral and intravenous contrast.
--- NOTE | 2024-09-17 11:33 | W.PN.INTV ---
Today's Communication / Plan
Recommendations
- Normal saline, at 100 mL/h, monitor input and output closely
- Follow-up labs in a.m.
Assessment
-
Assessment: 84-year-old male with a past medical history of A-fib s/p PVI + Watchman (both performed in 2020), LAFB, left carotid artery stenosis s/p CEA (10/2023), hypertension and hyperlipidemia who presented with nausea/vomiting and diarrhea for
several days with reduced oral intake and weakness. He had not urinated in 2 days as well. Diarrhea was watery without blood or mucus. Initial creatinine was 4.3, BUN 64, and serum bicarbonate level 18. Stool cultures were ordered. CT
abdomen/pelvis showed fluid attenuation in the colon with no other acute inflammatory process in the abdomen or pelvis, and no hydronephrosis or nephrolithiasis. 2 L NS 0.9% given in the ER in addition to Tylenol and Zofran and he was admitted to
the Med-Surg for further care. Patient continued to be hypotensive and was transferred to the IMU on 09/14 and unfortunately his blood pressure continued to decline, prompting initiation of vasopressors. His metabolic acidosis also persisted
despite bicarbonate drip and he was upgraded to the ICU and wire weaving loom setter services consulted for additional management/recommendations.
Chronic conditions SHIP LINER: Hypertension, hyperlipidemia, basal cell carcinoma, A-fib on dofetilide s/p PVI (04/2020) and watchman (07/2020), left anterior fascicular block, left carotid artery stenosis s/p CEA (10/2023)
09/17/2024: Patient had been on Levophed at 2, currently weaned off, MAP of 80. Saturating 95% on room air. Creatinine up to 5.9.
Large volume diarrhea, total output 4 L over the last 24 hours. Anuric.
Assessment and plan:
#1. Septic shock with Salmonella bacteremia.
- Hemodynamically improving, has been intermittently requiring Levophed most recently at 2 strap making machine operator, currently weaned off, MAP of 80.
- Continue ceftriaxone IV, ID service on case, follow-up on culture sensitivities
#2. Severe diarrhea with complicated gastroenteritis related to Salmonella.
- Salmonella isolated both in stool as well as blood explaining the severity of his illness
- Continue ceftriaxone, follow-up blood cultures
- Rectal tube in place, continues to have significant diarrhea. No abdominal pain or tenderness noted.
#3. Acute kidney injury, anuric
- Suspect started as prerenal, likely progressed to ATN
- Patient has been initiated on renal replacement therapy, right IJ trialysis catheter in place
- Nephrology service on case, creatinine continues to rise
- In view of significant diarrhea, continue IV fluids, change rate to 100 mL/h, will monitor input and output closely
#4. Paroxysmal Atrial Fibrillation:
- S/p Watchman procedure, off Eliquis now. Has been on aspirin 81 mg daily.
- Normal sinus rhythm now, Tikosyn is currently on hold
#5. Prolonged QT interval.
- Patient had prolonged QT interval of 642 on admission.
- Has been off Tikosyn, electrolytes repleted, QTc 442, on 09/17. Continue to monitor
DVT prophylaxis subcu heparin
GI prophylaxis, pantoprazole
Critical care statement: A total of 45 minutes of critical care time was provided for this patient today. This includes management of unstable vital signs, evaluation of the patient at bedside, reviewing the patient's pertinent medical records
including radiographs, microbiology, laboratory evaluations, and discussion with primary team, consultants, pharmacy, nutrition, physical therapy, case management, charge nurse, critical care nursing, and respiratory therapy.
Subjective Dataa
Subjective Data
Date of Service:
Date of Service: September 17, 2024
Chief Complaint: Redevelopment Specialist Follow Up
Subjective:
Patient comfortably lying in bed, in no acute distress. Rectal tube in place, continues to have diarrhea.
Review of Systems
Genitourinary: Other (All 14 systems reviewed and negative except as stated above in the history of present illness.)
Objective Data
Data Reviewed
Vital Signs / I&O / Oxygen:
Vital Signs
Temp Pulse Resp BP Pulse Ox
98 F 79 21 121/70 96
09/17/24 07:45 09/17/24 10:30 09/17/24 10:30 09/17/24 10:30 09/17/24 10:30
Intake and Output
09/16/24 09/17/24 09/18/24
06:59 06:59 06:59
Intake Total 3965.3 / 3995.3 4761.4 / 4890.2 553.8 / 553.8
Output Total 6600 / 6600 4200 / 4200 900 / 900
Balance -2634.7 / -2604.7 561.4 / 690.2 -346.2 / -346.2
SaO2 96
Nasal Cannula flow liters per 2
minute
Physical Exam
General: Comfortable
HEENT: Normocephalic and Anicteric
Cardiovascular: S1-S2 and Peripheral Edema (negative)
Respiratory: Clear
GI: Soft, Non Distended, Non Tender and Normal Bowel Sounds
Neurology: Awake and Alert
Skin: Warm and Dry
Labs/Micro/Reports
Lab Data
09/17/24 04:47
09/17/24 04:47
Microbiology
09/16/24 10:46 Blood/Venous Blood Culture - Preliminary
No Growth in 24 hours- Final report to follow
09/13/24 22:18 Feces/Stool Salmonella/Shigella Culture - Final
Salmonella species
09/13/24 22:18 Feces/Stool Campylobacter Culture - Final
No Campylobacter species isolated.
09/13/24 22:18 Feces/Stool Shiga Toxin Test - Final
No E. coli Shiga Toxin 1 or 2 detected.
09/15/24 10:08 Blood/Venous Blood Culture - Preliminary
Salmonella species
09/15/24 10:08 Blood/Venous Gram Stain - Final
09/15/24 08:42 Blood/Venous Blood Culture - Preliminary
Salmonella species
09/15/24 08:42 Blood/Venous Gram Stain - Final
09/13/24 22:18 Feces/Stool C. difficile GDH Antigen & Toxins - Final
Negative for toxigenic C.difficile
09/13/24 22:18 Feces/Stool - Final
Negative for Norovirus GI and GII.
[2024-09-17] MEDS: ROCEPHIN 2000 MG IV (11:57)
[2024-09-17] MEDS: STERILE WATER FOR INJECTION 20 ML IV (11:57)
--- NOTE | 2024-09-17 12:00 | PTCARENOTE ---
levophed remains off, plan of care discussed with mds. pt no longer ordered fluid restriction, ivf continue per order. assessment unchanged
[2024-09-17 12:14] LABS: Glucose - Point of Care 114 mg/dl (70-99)
--- NOTE | 2024-09-17 16:15 | CM ---
Discharge POC: Home with no needs.
[2024-09-17 16:20] LABS: Blood Urea Nitrogen 61 mg/dl (9-20); Calcium 7.8 mg/dl (8.4-10.2); Carbon Dioxide 14 mmol/L (22-30); Chloride 106 mmol/L (98-107); Glucose 118 mg/dl (70-99); Potassium 3.2 mmol/L (3.5-5.1); Sodium 136 mmol/L (135-145)
--- NOTE | 2024-09-17 16:24 | PTCARENOTE ---
pt continues to refuse getting oob, pt feeling weak- ongoing education provided. pt frequently repositioning and changing positions, pulls self up in bed. daughter updated. assessment unchanged further. Dr. Gaston aware of afternoon labs.
[2024-09-17 16:26] LABS: Estimated Creatinine Clearance 9 ml/min; eGFR 8.41
[2024-09-17] MEDS: SODIUM BICARBONATE 1150 MEQ IV (17:03)
[2024-09-17] MEDS: KCL 100 IV (17:03)
[2024-09-17] MEDS: TYLENOL 650 MG PO (17:14)
[2024-09-17 18:36] LABS: Hepatitis B Surface Antigen Negative (Negative)
[2024-09-17 18:54] LABS: Hepatitis B Core Ab, Total Negative (Negative); Hepatitis B Surface Antibody Negative; Hepatitis C Antibody Negative (Negative)
--- NOTE | 2024-09-17 20:34 | SUR.OPER ---
Received pt from previous RN. Pt is AAOx3. NSR w/ 1st degree and PVCs on the monitor. Pt on RA O2 sat 97%, lungs clear. R.T in place, pt with diarrhea. Bicarb gtt @ 100 ml/hr. K rider infusing. Family at bedside. Call ty in reach. Safe environment
maintained.
[2024-09-18] VITALS (34 sets, daily range): BP systolic 101–148; BP diastolic 45–71; PULSE 73–76; O2SAT 96; BMI 28.5
--- NOTE | 2024-09-18 00:08 | PTCARENOTE ---
Systems reviewed, no new changes in assessment. Safe environment maintained.
[2024-09-18] MEDS: TYLENOL 650 MG PO ×3 (00:52→21:03)
[2024-09-18] MEDS: SODIUM BICARBONATE 1150 MEQ IV ×2 (04:05→16:02)
--- NOTE | 2024-09-18 04:58 | PTCARENOTE ---
Systems reviewed, no new changes in assessment. AM labs provided. Call ty in reach. Safe environment maintained.
[2024-09-18 05:04] LABS: Hematocrit 39.2 % (39.0-52.0); Hemoglobin 14.2 g/dL (13.0-18.0); Mean Corp Hgb Conc. 36.2 g/dL (33.0-37.0); Mean Corpuscular Hgb 31.2 pg (27.0-31.0); Mean Corpuscular Volume 86.2 fL (80.0-94.0); Red Blood Cell Count 4.55 10^6/uL (4.70-6.10); Red Cell Dist. Width 13.7 % (11.5-14.5); White Blood Cell Count 8.5 10^3/uL (4.8-10.8)
[2024-09-18 05:22] LABS: Blood Urea Nitrogen 69 mg/dl (9-20); Calcium 7.9 mg/dl (8.4-10.2); Carbon Dioxide 18 mmol/L (22-30); Chloride 99 mmol/L (98-107); Glucose 102 mg/dl (70-99); Magnesium 1.8 mg/dl (1.6-2.3); Phosphorus 4.1 mg/dl (2.5-4.5); Potassium 2.9 mmol/L (3.5-5.1); Sodium 131 mmol/L (135-145)
[2024-09-18] MEDS: KCL 40 MEQ PO (05:30)
[2024-09-18] MEDS: KCL 100 IV (05:30)
[2024-09-18 05:34] LABS: Estimated Creatinine Clearance 8 ml/min
[2024-09-18] MEDS: MAGNESIUM SULFATE 100 IV (05:42)
[2024-09-18 06:42] LABS: % Basophils 0.5 % (0-2); % Eosinophils 0.9 % (0-6); % Immature Granulocytes 1.3 % (0-0.5); % Lymphocytes 6.3 % (20.5-51.1); % Monocytes 6.4 % (1.7-9.3); % Neutrophils 84.6 % (42.2-75.2); Absolute Eosinophils 0.1 10^3/uL (0-0.7); Absolute Immature Granulocytes 0.1 10^3/uL (0-0.05); Absolute Lymphocytes 0.5 10^3/uL (1.2-3.4); Absolute Monocytes 0.6 10^3/uL (0.1-0.6); Absolute Neutrophils 7.2 10^3/uL (1.4-6.5); Mean Platelet Volume 12.3 fL (7.4-10.4); Nucleated Red Blood Cells % 0 % (-); Platelet Count 86 10^3/uL (130-400)
[2024-09-18] MEDS: CRESTOR 40 MG PO (07:25)
[2024-09-18] MEDS: HEPARIN 5000 UNITS SC (07:25)
[2024-09-18] MEDS: LOW STRENGTH ASPIRIN 81 MG PO (07:25)
[2024-09-18] MEDS: ZETIA 10 MG PO (07:25)
[2024-09-18] MEDS: PROTONIX 40 MG PO (07:25)
--- NOTE | 2024-09-18 08:15 | PTCARENOTE ---
pt received from previous rn- aox4, nsr with 1st degree and pvcs on monitor, room air. complains of mild headache, tylenol given per order. daughter at bedside- both provided education on plan of care and verbalized understanding. pt educated on
importance of ambulation, requesting PT and OT to work with him first. pt and ot orders. pt turns and repositions self frequently, pulls self up in bed. rectal trumpet with watery green stools. right ij trialysis cath c/d/i, pigtail infusing bicarb
and k rider. all safety precautions in place, call ty within reach.
--- NOTE | 2024-09-18 08:38 | W.PN.NEPH.PH ---
Today's Communication / Plan
-
IVF
Assessment/Plan
-
84-year-old male past medical history of carotid stenosis, prior CVA, hypertension, hyperlipidemia, basal cell carcinoma, atrial fibrillation, GERD, presenting with predominantly diarrhea and some vomiting starting 2 days ago.
Renal consultation for acute kidney injury creatinine of 4 on admission increased to 5.3
Hypotensive on admission with some improvement with IV fluids
Impression.
Acute kidney injury creatinine 5.3, but normal baseline
Diarrhea enteritis
hypokalemia secondary to diarrhea.
Atrial fibrillation.
thrombocytopenia
Plan.
IVF bicarb
replete K po/IV
HD today
follow BMP
continue abx for salmonella
will need to hold heparin with falling platelets
critical care time 31 minutes
-
-
Date of Service: September 18, 2024
CC / HPI / ROS
-
Chief Complaint:
Diarrhea
History of Present Illness:
Severe watery diarrhea, Salmonella/ hypotension off pressors this am
diarrhea still, on abx
no fever
K low 2.9
oliguric now
critically ill in ICU
Review of Systems:
no CP/SOB
Labs
-
Labs:
WBC 8.5 10^3/uL (4.8-10.8) 09/18/24 04:46
RBC 4.55 10^6/uL (4.70-6.10) L 09/18/24 04:46
Hgb 14.2 g/dL (13.0-18.0) 09/18/24 04:46
Hct 39.2 % (39.0-52.0) 09/18/24 04:46
Plt Count 86 10^3/uL (130-400) L D 09/18/24 04:46
Sodium 131 mmol/L (135-145) L 09/18/24 04:46
Potassium 2.9 mmol/L (3.5-5.1) L 09/18/24 04:46
Chloride 99 mmol/L (98-107) 09/18/24 04:46
Carbon Dioxide 18 mmol/L (22-30) L 09/18/24 04:46
BUN 69 mg/dl (9-20) H 09/18/24 04:46
Creatinine 6.9 mg/dL (0.7-1.3) H* 09/18/24 04:46
eGFR 7.40 09/18/24 04:46
Glucose 102 mg/dl (70-99) H 09/18/24 04:46
Calcium 7.9 mg/dl (8.4-10.2) L 09/18/24 04:46
Phosphorus 4.1 mg/dl (2.5-4.5) 09/18/24 04:46
Albumin Cancelled 09/15/24 17:49
Physical Exam
-
Vital Signs:
Vital Signs
Temp Pulse Resp BP Pulse Ox
97.5 F 78 21 128/69 97
09/18/24 08:00 09/18/24 08:00 09/18/24 08:00 09/18/24 08:00 09/18/24 08:00
Cardiovascular:: Regular rate and rhythm
Respiratory:: Bilateral: CTA
Lung Excursion:: Normal
Abdomen:: Nontender and Soft
Bowel Sounds:: Normal
Extremity Edema:: None: Bilateral:
--- NOTE | 2024-09-18 09:55 | W.PN.HOSP.TC ---
Addendum entered and electronically signed by Jarvis Bravo MD 09/18/24 17:09:
Correction, patient has been off of Levophed for more than 24 hours, and is stable for telemetry.
Original Note:
Today's Communication/Plan
-
see bold
Assessment / Plan
Assessment / Plan
CT A/P: Fluid attenuation in the colon most in keeping with a diarrheal illness. No other acute inflammatory process in the abdomen or pelvis within the limitations of the lack of oral and intravenous contrast.
Septic shock due to acute enterocolitis with bacteremia:
-CT A/P above
-C. difficile/Norovirus NEG
-Status post vancomycin and cefepime on 09/15/2024
-Appreciate ID input, continue high-dose empiric Rocephin
-Appreciate astro technician input, continue IV fluids, low-dose Levophed, wean Levophed as tolerated
Severe prerenal HUNTER:
Non-anion gap metabolic acidosis:
-Cr continued to worsen. Patient also had worsening anion gap metabolic acidosis despite bicarb gtt and no UOP.
-Appreciate nail welter input, HD started 09/15/24
-Continue dialysis and sodium bicarb IV fluid as per nephrology
-Home ACEi/Norvasc stopped
Profound hypokalemia
-Magnesium level normal
-Replete by IV and p.o., recheck labs
Paroxysmal atrial fibrillation:
-Appreciate cardiology input, Tikosyn stopped with HUNTER
Other problems:
Hypomagnesemia, resolved
NITZA s/p CEA
H/o CVA: cont ASA/statin
Essential hypertension: currently hypotensive on Levophed
HLD: Cont Zetia/statin
H/o Basal cell carcinoma
GERD: Cont PPI
DVT prophylaxis�subcu heparin
Full code
Total time spent to see the patient on the floor, examine the patient, review data and lab results, discuss treatment plan with patient, nursing staff around 40 minutes.
Physical exam
Gen: NAD, AAOx3.
Eyes: EOMI, PERRLA, no scleral icterus.
Neck: supple.
CV: remains RRR, +S1/S2, no m/r/g.
Resp: CTAB anteriorly, no rales, wheezes, or rhonchi.
Abd: remains +BS, soft, NT, ND
Skin: No rashes.
Neuro: CN 2-12 intact, non-focal.
Psych: Normal mood and affect.
Anticipated Discharge: > 48 hours
Subjective/Interval History
-
Date of Service: September 18, 2024
Patient continues to have diarrhea, frequency and volume improved. Denies nausea, denies vomiting. No abdominal pain. No fever, no chest pain, no shortness of breath.
Objective Data
-
Labs:
Laboratory Results
09/18/24 09/18/24
04:46 20:00
WBC 8.5
Hgb 14.2
Hct 39.2
Plt Count 86 L D
Sodium 131 L Pending
Potassium 2.9 L Pending
Chloride 99 Pending
Carbon Dioxide 18 L Pending
BUN 69 H Pending
Creatinine 6.9 H* Pending
Glucose 102 H Pending
Calcium 7.9 L Pending
Vital Signs:
Vital Signs
Temp Pulse Resp BP Pulse Ox
97.5 F 78 21 128/69 97
09/18/24 08:00 09/18/24 08:00 09/18/24 08:00 09/18/24 08:00 09/18/24 08:00
I&O
09/17/24 09/18/24 09/19/24
06:59 06:59 06:59
Intake Total 4761.4 / 4890.2 3568.8 / 3693.8 325 / 325
Output Total 4200 / 4200 4450 / 4450
Balance 561.4 / 690.2 -881.2 / -756.2 325 / 325
--- NOTE | 2024-09-18 10:55 | W.PN.INTV ---
Today's Communication / Plan
Recommendations
- Replace potassium, 40 mill equivalent p.o., 40 mill equivalent IV
- Follow-up labs ordered for later today
- Check HIT panel, if negative resume heparin. Start Danilo Hose stockings
- Patient off pressors for more than 24 hours, transferred to telemetry floor
- Preassembler And Inspector service will sign off, please call as needed
Assessment
-
Assessment: 84-year-old male with a past medical history of A-fib s/p PVI + Watchman (both performed in 2020), LAFB, left carotid artery stenosis s/p CEA (10/2023), hypertension and hyperlipidemia who presented with nausea/vomiting and diarrhea for
several days with reduced oral intake and weakness. He had not urinated in 2 days as well. Diarrhea was watery without blood or mucus. Initial creatinine was 4.3, BUN 64, and serum bicarbonate level 18. Stool cultures were ordered. CT
abdomen/pelvis showed fluid attenuation in the colon with no other acute inflammatory process in the abdomen or pelvis, and no hydronephrosis or nephrolithiasis. 2 L NS 0.9% given in the ER in addition to Tylenol and Zofran and he was admitted to
the Med-Surg for further care. Patient continued to be hypotensive and was transferred to the IMU on 09/14 and unfortunately his blood pressure continued to decline, prompting initiation of vasopressors. His metabolic acidosis also persisted
despite bicarbonate drip and he was upgraded to the ICU and civil engineering assistant services consulted for additional management/recommendations.
Chronic conditions ERP TECHNICAL LEAD: Hypertension, hyperlipidemia, basal cell carcinoma, A-fib on dofetilide s/p PVI (04/2020) and watchman (07/2020), left anterior fascicular block, left carotid artery stenosis s/p CEA (10/2023)
09/18/2024: Patient has been weaned off Levophed, off pressors more than 24 hours now. Saturating 95% on room air
Large volume diarrhea, fluid balance -110 mL last 24 hours.
Assessment and plan:
#1. Septic shock with Salmonella bacteremia.
- Hemodynamically improved, off Levophed since 24 hours now
- Continue ceftriaxone IV, ID service on case, follow-up on culture sensitivities
#2. Severe diarrhea with complicated gastroenteritis related to Salmonella.
- Salmonella isolated both in stool as well as blood explaining the severity of his illness
- Continue ceftriaxone, follow-up blood cultures
- Rectal tube in place, continues to have significant diarrhea. No abdominal pain or tenderness noted.
#3. Acute kidney injury, anuric
- Suspect started as prerenal, likely progressed to ATN
- Patient has been initiated on renal replacement therapy, right IJ trialysis catheter in place
- Nephrology service on case, creatinine continues to rise
- In view of significant diarrhea, continue IV fluids
#4. Paroxysmal Atrial Fibrillation:
- S/p Watchman procedure, off Eliquis now. Has been on aspirin 81 mg daily.
- Normal sinus rhythm now, Tikosyn is currently on hold
#5. Prolonged QT interval.
- Patient had prolonged QT interval of 642 on admission.
- Has been off Tikosyn, electrolytes repleted, QTc 442, on 09/17. Continue to monitor
#6. Hypokalemia, metabolic acidosis
- Related to diarrheal losses
- IV fluids switched to 3 Amps of bicarb in sterile water at 100 cc an hour
- Potassium replacement 40 p.o. and 40 mill equivalent IV. Follow-up labs in the evening.
#7. Thrombocytopenia
- Suspect related to underlying bacteremia and septic shock
- Heparin held per nephrology service
- Check HIT panel, if negative will favor resuming heparin as long as platelet count is above 50,000
DVT prophylaxis. Start Danilo hose stockings
GI prophylaxis, pantoprazole
Critical care statement: A total of 45 minutes of critical care time was provided for this patient today. This includes management of unstable vital signs, evaluation of the patient at bedside, reviewing the patient's pertinent medical records
including radiographs, microbiology, laboratory evaluations, and discussion with primary team, consultants, pharmacy, nutrition, physical therapy, case management, charge nurse, critical care nursing, and respiratory therapy.
Subjective Dataa
Subjective Data
Date of Service:
Date of Service: September 18, 2024
Chief Complaint: Preassembler And Inspector Follow Up
Subjective:
Patient comfortably lying in bed in no acute distress.
Review of Systems
Genitourinary: Other (All 14 systems reviewed and negative except as stated above in the history of present illness.)
Objective Data
Data Reviewed
Vital Signs / I&O / Oxygen:
Vital Signs
Temp Pulse Resp BP Pulse Ox
97.5 F 76 21 116/63 95
09/18/24 08:00 09/18/24 10:47 09/18/24 10:47 09/18/24 10:47 09/18/24 10:47
Intake and Output
09/17/24 09/18/24 09/19/24
06:59 06:59 06:59
Intake Total 4761.4 / 4890.2 3568.8 / 3693.8 325 / 325
Output Total 4200 / 4200 4450 / 4450 375 / 375
Balance 561.4 / 690.2 -881.2 / -756.2 -50 / -50
SaO2 95
Nasal Cannula flow liters per 2
minute
Physical Exam
General: Comfortable
HEENT: Normocephalic and Anicteric
Cardiovascular: S1-S2 and Peripheral Edema (negative)
Respiratory: Clear
GI: Soft, Non Distended, Non Tender and Normal Bowel Sounds
Neurology: Awake and Alert
Skin: Warm and Dry
Labs/Micro/Reports
Lab Data
09/18/24 04:46
Microbiology
09/16/24 10:46 Blood/Venous Blood Culture - Preliminary
No Growth in 48 hours- Final report to follow
09/17/24 04:47 Blood/Venous Blood Culture - Preliminary
No Growth in 24 hours- Final report to follow
09/13/24 22:18 Feces/Stool Salmonella/Shigella Culture - Final
Salmonella species
09/13/24 22:18 Feces/Stool Campylobacter Culture - Final
No Campylobacter species isolated.
09/13/24 22:18 Feces/Stool Shiga Toxin Test - Final
No E. coli Shiga Toxin 1 or 2 detected.
09/15/24 10:08 Blood/Venous Blood Culture - Preliminary
Salmonella species
09/15/24 10:08 Blood/Venous Gram Stain - Final
09/15/24 08:42 Blood/Venous Blood Culture - Preliminary
Salmonella species
09/15/24 08:42 Blood/Venous Gram Stain - Final
--- NOTE | 2024-09-18 12:20 | W.PN.NEPH.HD ---
Assessment
-
Seen on HD. no complaints. VSS, access ok temp
Progress Note - Hemodialysis
-
Date of Service: September 18, 2024
Duration: 30 minutes and 3 hours
Potassium Bath: 4
Calcium Bath: 2.5
Opti-Dialyzer: 160
Ultrafiltration: Other (no)
Blood Flow: 400
Dialysate Flow: 600
Heparin: no
EPO: no
--- NOTE | 2024-09-18 12:41 | W.PN.ID1 ---
Date of Service
Date of Service: September 18, 2024
Today's Communication
Follow plt. If persists, may need to replace ceftriaxone.
Assessment / Plan
# Complicated Salmonella gastroenteritis with bacteremia
. Of note onset of diarrhea after eating chicken wings.
# Severe pre-renal HUNTER
. HD started 09/16
# Acute thrombocytopenia
# s/p Septic shock
- Stool cx: + salmonella
-Repeat blood cx's neg to date
- Continue ceftriaxone 2g IV q24 (d4)
- Still with significant diarrhea.
- Follow stool output
- Follow plt. If persists, may need to replace ceftriaxone.
- Contact isolation if incontinent of stool.
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
Hypertension
HLD
Atrial fibrillation
CVA
Basal cell carcinoma
Left carotid endarterectomy
Appendectomy
Bilateral TKA
Chief Complaint
-: Bacteremia and Other (diarrhea)
Vital Signs / Physical Exam
Vital Signs
Vital Signs
Temp Pulse Resp BP Pulse Ox
97.8 F 76 21 116/63 95
09/18/24 12:00 09/18/24 10:47 09/18/24 10:47 09/18/24 10:47 09/18/24 10:47
Objective Data
Lab Data
Lab Results
09/18/24 04:46
Estimated Creat Clear 8 ml/min 09/18/24 04:46
Total Bilirubin Cancelled 09/15/24 17:49
AST Cancelled 09/15/24 17:49
ALT Cancelled 09/15/24 17:49
Alkaline Phosphatase Cancelled 09/15/24 17:49
Most recent labs reviewed.
Micro Results:
09/15/24 10:08 Blood Culture - Preliminary
Blood/Venous Salmonella species
Gram Stain - Final
09/15/24 08:42 Blood Culture - Preliminary
Blood/Venous Salmonella species
Gram Stain - Final
09/16/24 10:46 Blood Culture - Preliminary
Blood/Venous No Growth in 48 hours- Final report to follow
09/17/24 04:47 Blood Culture - Preliminary
Blood/Venous No Growth in 24 hours- Final report to follow
09/13/24 22:18 Salmonella/Shigella Culture - Final
Feces/Stool Salmonella species
Campylobacter Culture - Final
No Campylobacter species isolated.
Shiga Toxin Test - Final
No E. coli Shiga Toxin 1 or 2 detected.
09/13/24 22:18 C. difficile GDH Antigen & Toxins - Final
Feces/Stool Negative for toxigenic C.difficile
- Final
Negative for Norovirus GI and GII.
09/13/24 CT a/p: Fluid attenuation in the colon most in keeping with a diarrheal illness. No other acute inflammatory process in the abdomen or pelvis within the limitations of the lack of oral and intravenous contrast.
--- NOTE | 2024-09-18 14:41 | CM ---
IV/AB, IV Albumen with HD. New HD. Discharge POC: Dependent on medical progression. May need outpatient HD services.
[2024-09-18] MEDS: STERILE WATER FOR INJECTION 20 ML IV (15:19)
[2024-09-18] MEDS: ROCEPHIN 2000 MG IV (15:19)
--- NOTE | 2024-09-18 16:10 | PTCARENOTE ---
pt oob with pt and ot. pt tolerated dialysis for approx 4 hour treatment. report given to 3W rn, pt and daughter aware of transfer
[2024-09-18 17:10] LABS: Glucose - Point of Care 131 mg/dl (70-99)
--- NOTE | 2024-09-18 17:48 | PTCARENOTE ---
Pt arrived from ICU at 1700 on bed with sterile water and sodium bicarb running at 100ml/hr. Pt has no current complaints, drinks offered and dinner ordered. Plan of care ongoing.
[2024-09-18 21:02] LABS: Blood Urea Nitrogen 38 mg/dl (9-20); Calcium 7.4 mg/dl (8.4-10.2); Carbon Dioxide 28 mmol/L (22-30); Chloride 97 mmol/L (98-107); Estimated Creatinine Clearance 13 ml/min; Glucose 132 mg/dl (70-99); Potassium 3.2 mmol/L (3.5-5.1); Sodium 132 mmol/L (135-145); eGFR 13.43
[2024-09-18 21:57] LABS: Glucose - Point of Care 121 mg/dl (70-99)
--- NOTE | 2024-09-19 00:35 | PTCARENOTE ---
patient was offered oral and bodily hygiene at multiple times, but patient refused.
[2024-09-19 03:00] VITALS: BP 137/64
[2024-09-19 04:31] LABS: Blood Urea Nitrogen 45 mg/dl (9-20); Calcium 7.5 mg/dl (8.4-10.2); Carbon Dioxide 30 mmol/L (22-30); Chloride 96 mmol/L (98-107); Estimated Creatinine Clearance 12 ml/min; Glucose 105 mg/dl (70-99); Potassium 3.3 mmol/L (3.5-5.1); Sodium 133 mmol/L (135-145); eGFR 12.04
[2024-09-19 07:24] VITALS: BP 117/66
[2024-09-19 07:56] LABS: Glucose - Point of Care 95 mg/dl (70-99)
[2024-09-19] MEDS: PROTONIX 40 MG PO (07:58)
[2024-09-19] MEDS: CRESTOR 40 MG PO (07:58)
[2024-09-19] MEDS: ZETIA 10 MG PO (07:58)
[2024-09-19] MEDS: LOW STRENGTH ASPIRIN 81 MG PO (07:58)
--- NOTE | 2024-09-19 09:49 | W.PN.HOSP.TC ---
Today's Communication/Plan
-
see bold
Assessment / Plan
Assessment / Plan
CT A/P: Fluid attenuation in the colon most in keeping with a diarrheal illness. No other acute inflammatory process in the abdomen or pelvis within the limitations of the lack of oral and intravenous contrast.
Septic shock due to acute enterocolitis with bacteremia:
-CT A/P above
-C. difficile/Norovirus NEG
-Status post vancomycin and cefepime on 09/15/2024
-Appreciate ID input, continue high-dose empiric Rocephin
-Status post Levophed, out of the ICU 09/18
Severe prerenal HUNTER:
Non-anion gap metabolic acidosis:
-Cr continued to worsen. Patient also had worsening anion gap metabolic acidosis despite bicarb gtt and no UOP.
-Appreciate gear shaver set up operator input, HD started 09/15/24
-Continue dialysis and sodium bicarb IV fluid as per nephrology
-Home ACEi/Norvasc stopped
Thrombocytopenia
-HIT panel negative, suspect secondary to sepsis
Profound hypokalemia:
- Due to diarrhea, magnesium and phosphorus levels are normal
-Continue to replete potassium by p.o., recheck a.m. labs
Paroxysmal atrial fibrillation:
-Appreciate cardiology input, Tikosyn stopped with HUNTER
Other problems:
Hypomagnesemia, resolved
NITZA s/p CEA
H/o CVA: cont ASA/statin
Essential hypertension: Home ACEi/Norvasc stopped
HLD: Cont Zetia/statin
H/o Basal cell carcinoma
GERD: Cont PPI
DVT prophylaxis�SCDs
Full code
Total time spent to see the patient on the floor, examine the patient, review data and lab results, discuss treatment plan with patient, nursing staff around 38 minutes.
Physical exam
Gen: NAD, AAOx3.
Eyes: EOMI, PERRLA, no scleral icterus.
Neck: supple.
CV: remains RRR, +S1/S2, no m/r/g.
Resp: CTAB anteriorly, no rales, wheezes, or rhonchi.
Abd: remains +BS, soft, NT, ND
Skin: No rashes.
Neuro: CN 2-12 intact, non-focal.
Psych: Normal mood and affect.
Anticipated Discharge: > 48 hours
Subjective/Interval History
-
Date of Service: September 18, 2024
Patient continues to have diarrhea, overall improved since admission. Denies abdominal pain. No fever, no vomiting. No chest pain, no shortness of breath. Has mild lightheadedness with standing.
Objective Data
-
Labs:
Laboratory Results
09/18/24 09/18/24
04:46 20:00
WBC 8.5
Hgb 14.2
Hct 39.2
Plt Count 86 L D
Sodium 131 L Pending
Potassium 2.9 L Pending
Chloride 99 Pending
Carbon Dioxide 18 L Pending
BUN 69 H Pending
Creatinine 6.9 H* Pending
Glucose 102 H Pending
Calcium 7.9 L Pending
Vital Signs:
Vital Signs
Temp Pulse Resp BP Pulse Ox
98.3 F 89 18 131/62 98
09/18/24 16:47 09/18/24 16:47 09/18/24 16:47 09/18/24 16:47 09/18/24 16:47
I&O
09/17/24 09/18/24 09/19/24
06:59 06:59 06:59
Intake Total 4761.4 / 4890.2 3568.8 / 3693.8 325 / 325
Output Total 4200 / 4200 4450 / 4450 600 / 600
Balance 561.4 / 690.2 -881.2 / -756.2 -275 / -275
[2024-09-19] MEDS: KCL 40 MEQ PO ×2 (10:01→17:46)
[2024-09-19 10:57] VITALS: BP 124/64
--- NOTE | 2024-09-19 10:59 | W.PN.NEPH.PH ---
Today's Communication / Plan
-
Dialysis tomorrow
Assessment/Plan
-
84-year-old male past medical history of carotid stenosis, prior CVA, hypertension, hyperlipidemia, basal cell carcinoma, atrial fibrillation, GERD, presenting with predominantly diarrhea and some vomiting starting 2 days ago.
Renal consultation for acute kidney injury creatinine of 4 on admission increased to 5.3
Hypotensive on admission with some improvement with IV fluids
Impression.
Acute kidney injury creatinine 5.3, but normal baseline
Diarrhea enteritis
hypokalemia secondary to diarrhea.
Atrial fibrillation.
thrombocytopenia
Plan.
IVF bicarb
replete K po/IV
follow BMP
continue abx for salmonella
will need to hold heparin with falling platelets
Dialysis tomorrow and continue monitoring for recovery
-
-
Date of Service: September 19, 2024
CC / HPI / ROS
-
Chief Complaint:
Diarrhea
History of Present Illness:
Severe watery diarrhea, Salmonella/ hypotension off pressors this am
diarrhea still, on abx
no fever
K low 2.9
oliguric now
critically ill in ICU
Review of Systems:
no CP/SOB
Labs
-
Labs:
WBC 8.5 10^3/uL (4.8-10.8) 09/18/24 04:46
RBC 4.55 10^6/uL (4.70-6.10) L 09/18/24 04:46
Hgb 14.2 g/dL (13.0-18.0) 09/18/24 04:46
Hct 39.2 % (39.0-52.0) 09/18/24 04:46
Plt Count 86 10^3/uL (130-400) L D 09/18/24 04:46
Sodium 133 mmol/L (135-145) L 09/19/24 03:42
Potassium 3.3 mmol/L (3.5-5.1) L 09/19/24 03:42
Chloride 96 mmol/L (98-107) L 09/19/24 03:42
Carbon Dioxide 30 mmol/L (22-30) 09/19/24 03:42
BUN 45 mg/dl (9-20) H 09/19/24 03:42
Creatinine 4.6 mg/dL (0.7-1.3) H* 09/19/24 03:42
eGFR 12.04 09/19/24 03:42
Glucose 105 mg/dl (70-99) H 09/19/24 03:42
Calcium 7.5 mg/dl (8.4-10.2) L 09/19/24 03:42
Albumin Cancelled 09/15/24 17:49
Physical Exam
-
Vital Signs:
Vital Signs
Temp Pulse Resp BP Pulse Ox
97.9 F 74 17 124/64 97
09/19/24 10:57 09/19/24 10:57 09/19/24 10:57 09/19/24 10:57 09/19/24 10:57
Cardiovascular:: Regular rate and rhythm
Respiratory:: Bilateral: CTA
Lung Excursion:: Normal
Abdomen:: Nontender and Soft
Bowel Sounds:: Normal
Extremity Edema:: None: Bilateral:
[2024-09-19] MEDS: STERILE WATER FOR INJECTION 20 ML IV (11:20)
[2024-09-19] MEDS: ROCEPHIN 2000 MG IV (11:20)
[2024-09-19 11:28] LABS: Magnesium 1.9 mg/dl (1.6-2.3); Phosphorus 2.9 mg/dl (2.5-4.5)
--- NOTE | 2024-09-19 12:06 | W.PN.ID1 ---
Date of Service
Date of Service: September 19, 2024
Today's Communication
Continue ceftriaxone.
Assessment / Plan
# Complicated Salmonella gastroenteritis with bacteremia
. Of note onset of diarrhea after eating chicken wings.
# Severe pre-renal HUNTER
. HD started 09/16
. improving
# Acute thrombocytopenia
# s/p Septic shock
- Stool cx: + salmonella
-Repeat blood cx's neg to date
- Continue ceftriaxone 2g IV q24 (d5)
- Diarrhea improving.
- Follow plt. If persists, may need to replace ceftriaxone.
- Contact isolation if incontinent of stool.
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
Hypertension
HLD
Atrial fibrillation
CVA
Basal cell carcinoma
Left carotid endarterectomy
Appendectomy
Bilateral TKA
Chief Complaint
-: Bacteremia and Other (diarrhea)
Subjective / Review of Systems
Diarrhea now more formed. Rectal tube removed.
Voiding well.
Vital Signs / Physical Exam
Vital Signs
Vital Signs
Temp Pulse Resp BP Pulse Ox
97.9 F 74 17 124/64 97
09/19/24 10:57 09/19/24 10:57 09/19/24 10:57 09/19/24 10:57 09/19/24 10:57
Physical Exam
Constitutional: Comfortable
Cardiovascular: Regular Rate and S1/S2
Pulmonary: Clear
Gastrointestinal: Soft, Non Tender and Non Distended
Neurological: AO x 3
Objective Data
Lab Data
Lab Results
09/18/24 04:46
09/19/24 03:42
Estimated Creat Clear 12 ml/min 09/19/24 03:42
Total Bilirubin Cancelled 09/15/24 17:49
AST Cancelled 09/15/24 17:49
ALT Cancelled 09/15/24 17:49
Alkaline Phosphatase Cancelled 09/15/24 17:49
Most recent labs reviewed.
Micro Results:
09/16/24 10:46 Blood Culture - Preliminary
Blood/Venous No Growth in 72 hours- Final report to follow
09/15/24 10:08 Blood Culture - Final
Blood/Venous Salmonella species
Gram Stain - Final
09/15/24 08:42 Blood Culture - Final
Blood/Venous Salmonella species
Gram Stain - Final
09/17/24 04:47 Blood Culture - Preliminary
Blood/Venous No Growth in 48 hours- Final report to follow
09/13/24 22:18 Miscellaneous Microbiology Test - Pending
Feces/Stool
09/13/24 22:18 Salmonella/Shigella Culture - Final
Feces/Stool Salmonella species
Campylobacter Culture - Final
No Campylobacter species isolated.
Shiga Toxin Test - Final
No E. coli Shiga Toxin 1 or 2 detected.
09/13/24 22:18 C. difficile GDH Antigen & Toxins - Final
Feces/Stool Negative for toxigenic C.difficile
- Final
Negative for Norovirus GI and GII.
09/13/24 CT a/p: Fluid attenuation in the colon most in keeping with a diarrheal illness. No other acute inflammatory process in the abdomen or pelvis within the limitations of the lack of oral and intravenous contrast.
[2024-09-19 12:26] LABS: Glucose - Point of Care 118 mg/dl (70-99)
[2024-09-19] MEDS: TYLENOL 1000 MG PO ×2 (15:00→23:57)
[2024-09-19] MEDS: MYLICON 80 MG PO ×2 (15:00→23:57)
[2024-09-19 15:19] VITALS: BP 107/54
[2024-09-19 16:22] LABS: Glucose - Point of Care 120 mg/dl (70-99)
[2024-09-19] MEDS: ROXICODONE 5 MG PO (17:51)
[2024-09-19 19:30] VITALS: BP 120/64
[2024-09-19 21:31] LABS: Glucose - Point of Care 111 mg/dl (70-99)
[2024-09-19 23:50] VITALS: BP 129/69
[2024-09-20 03:40] VITALS: BP 108/54
[2024-09-20 07:05] VITALS: BP 101/57
[2024-09-20 07:51] LABS: Glucose - Point of Care 53 mg/dl (70-99)
[2024-09-20] MEDS: MYLICON 80 MG PO (08:00)
[2024-09-20 08:10] LABS: Glucose - Point of Care 105 mg/dl (70-99)
[2024-09-20 08:46] LABS: Glucose - Point of Care 117 mg/dl (70-99)
--- NOTE | 2024-09-20 10:42 | W.PN.ID1 ---
Date of Service
Date of Service: September 20, 2024
Today's Communication
Ordered AXR.
Follow plt.
Continue cefttiaxone
Assessment / Plan
# Complicated Salmonella gastroenteritis with bacteremia
. Of note onset of diarrhea after eating chicken wings.
# Severe pre-renal HUNTER
. HD started 09/16
. improving
# Acute thrombocytopenia
# s/p Septic shock
# New abdominal distention 09/20
- Stool cx: + salmonella
-Repeat blood cx's neg to date
- Diarrhea decreased in frequency, now liquid gelatinous
- Contact isolation if incontinent of stool.
- Continue ceftriaxone 2g IV q24 (d6)
- Follow plt. If persists, may need to replace ceftriaxone.
labs still pending
- Ordered AXR for abd distention
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
Hypertension
HLD
Atrial fibrillation
CVA
Basal cell carcinoma
Left carotid endarterectomy
Appendectomy
Bilateral TKA
Chief Complaint
-: Bacteremia and Other (diarrhea)
Subjective / Review of Systems
c/o abd bloating, gas burping, flatus. No N/V.
+ diarrhea
Vital Signs / Physical Exam
Vital Signs
Vital Signs
Temp Pulse Resp BP Pulse Ox
97.9 F 91 18 101/57 96
09/20/24 07:05 09/20/24 07:05 09/20/24 07:05 09/20/24 07:05 09/20/24 07:05
Physical Exam
Constitutional: Non-toxic
Eyes: No Conjunctival Hemorrhage and Sclera Anicteric
Cardiovascular: Regular Rate and S1/S2
Pulmonary: Clear
Gastrointestinal: Soft, Non Tender, Distended and Other (hyperactive bowel sound)
Genito-Urinary: Negative CVA Tenderness
Neurological: AO x 3
Objective Data
Lab Data
Estimated Creat Clear 12 ml/min 09/19/24 03:42
Total Bilirubin Cancelled 09/15/24 17:49
AST Cancelled 09/15/24 17:49
ALT Cancelled 09/15/24 17:49
Alkaline Phosphatase Cancelled 09/15/24 17:49
Most recent labs reviewed.
Micro Results:
09/17/24 04:47 Blood Culture - Preliminary
Blood/Venous No Growth in 72 hours- Final report to follow
09/16/24 10:46 Blood Culture - Preliminary
Blood/Venous No Growth in 72 hours- Final report to follow
09/15/24 10:08 Blood Culture - Final
Blood/Venous Salmonella species
Gram Stain - Final
09/15/24 08:42 Blood Culture - Final
Blood/Venous Salmonella species
Gram Stain - Final
09/13/24 22:18 Miscellaneous Microbiology Test - Pending
Feces/Stool
09/13/24 22:18 Salmonella/Shigella Culture - Final
Feces/Stool Salmonella species
Campylobacter Culture - Final
No Campylobacter species isolated.
Shiga Toxin Test - Final
No E. coli Shiga Toxin 1 or 2 detected.
09/13/24 22:18 C. difficile GDH Antigen & Toxins - Final
Feces/Stool Negative for toxigenic C.difficile
- Final
Negative for Norovirus GI and GII.
09/13/24 CT a/p: Fluid attenuation in the colon most in keeping with a diarrheal illness. No other acute inflammatory process in the abdomen or pelvis within the limitations of the lack of oral and intravenous contrast.
Care Review
Plan reviewed with: Physician (Dr. Jignesh Bravo)
[2024-09-20 11:05] VITALS: BP 108/60
[2024-09-20] MEDS: STERILE WATER FOR INJECTION 20 ML IV (11:23)
[2024-09-20] MEDS: ROCEPHIN 2000 MG IV (11:24)
[2024-09-20] MEDS: CRESTOR PO (12:06)
[2024-09-20] MEDS: PROTONIX PO (12:06)
[2024-09-20] MEDS: LOW STRENGTH ASPIRIN PO (12:06)
[2024-09-20] MEDS: ZETIA PO (12:07)
[2024-09-20 12:19] LABS: Glucose - Point of Care 116 mg/dl (70-99)
[2024-09-20] MEDS: OMNIPAQUE 50 ML PO (12:21)
--- NOTE | 2024-09-20 12:42 | W.PN.NEPH.PH ---
Addendum entered and electronically signed by Adonis Chacon DO 09/20/24 14:26:
correction, HD holding today and will resume tomorrow
Original Note:
Today's Communication / Plan
-
Dialysis tomorrow
Assessment/Plan
-
84-year-old male past medical history of carotid stenosis, prior CVA, hypertension, hyperlipidemia, basal cell carcinoma, atrial fibrillation, GERD, presenting with predominantly diarrhea and some vomiting starting 2 days ago.
Renal consultation for acute kidney injury creatinine of 4 on admission increased to 5.3
Hypotensive on admission with some improvement with IV fluids
Impression.
Acute kidney injury creatinine 5.3, but normal baseline
Diarrhea enteritis
hypokalemia secondary to diarrhea.
Atrial fibrillation.
thrombocytopenia
Plan.
replete K po/IV as needed
follow BMP
continue abx for salmonella
will need to hold heparin with falling platelets
Dialysis tomorrow and continue monitoring for recovery
Abdominal plate possible ileus no free air with new abdominal distention
CAT scan pending
-
-
Date of Service: September 20, 2024
CC / HPI / ROS
-
Chief Complaint:
Diarrhea
History of Present Illness:
Severe watery diarrhea, Salmonella/ hypotension off pressors this am
diarrhea still, on abx
no fever
Review of Systems:
no CP/SOB
Diarrhea improving
Now with abdominal distention
Labs
-
Labs:
eGFR 12.04 09/19/24 03:42
Phosphorus 2.9 mg/dl (2.5-4.5) 09/19/24 03:42
Albumin Cancelled 09/15/24 17:49
Physical Exam
-
Vital Signs:
Vital Signs
Temp Pulse Resp BP Pulse Ox
97.6 F 98 19 108/60 96
09/20/24 11:05 09/20/24 11:05 09/20/24 11:05 09/20/24 11:05 09/20/24 11:05
Cardiovascular:: Regular rate and rhythm
Respiratory:: Bilateral: CTA
Lung Excursion:: Normal
Abdomen:: Distended and Nontender
Bowel Sounds:: Decreased
Extremity Edema:: None: Bilateral:
[2024-09-20 14:19] LABS: % Basophils 0.4 % (0-2); % Eosinophils 0.5 % (0-6); % Immature Granulocytes 1.1 % (0-0.5); % Lymphocytes 3.3 % (20.5-51.1); % Monocytes 4.6 % (1.7-9.3); % Neutrophils 90.1 % (42.2-75.2); Absolute Eosinophils 0.1 10^3/uL (0-0.7); Absolute Immature Granulocytes 0.1 10^3/uL (0-0.05); Absolute Lymphocytes 0.4 10^3/uL (1.2-3.4); Absolute Monocytes 0.5 10^3/uL (0.1-0.6); Hemoglobin 15.8 g/dL (13.0-18.0); Mean Corp Hgb Conc. 35.9 g/dL (33.0-37.0); Mean Corpuscular Hgb 31.3 pg (27.0-31.0); Mean Corpuscular Volume 87.1 fL (80.0-94.0); Mean Platelet Volume 11.1 fL (7.4-10.4); Nucleated Red Blood Cells % 0 % (-); Platelet Count 180 10^3/uL (130-400); Red Blood Cell Count 5.05 10^6/uL (4.70-6.10); Red Cell Dist. Width 13.4 % (11.5-14.5); White Blood Cell Count 11.1 10^3/uL (4.8-10.8)
[2024-09-20 15:05] VITALS: BP 117/68
--- NOTE | 2024-09-20 16:39 | W.PN.HOSP.TC ---
Today's Communication/Plan
-
see bold
Assessment / Plan
Assessment / Plan
CT A/P: Fluid attenuation in the colon most in keeping with a diarrheal illness. No other acute inflammatory process in the abdomen or pelvis within the limitations of the lack of oral and intravenous contrast.
Septic shock due to acute enterocolitis with bacteremia:
-CT A/P above
-C. difficile/Norovirus NEG
-Status post vancomycin and cefepime on 09/15/2024
-Appreciate ID input, continue high-dose empiric Rocephin
-Status post Levophed, out of the ICU 09/18
Worsening abdominal distention
- Abdominal x-ray shows possible ileus, cannot rule out obstruction
- 09/20 CT abdomen and pelvis with oral contrast, without IV contrast, shows ileus, enteritis, dilated small bowel, cannot rule out obstruction
- Patient requesting NG tube insertion as he has a history of small bowel obstruction
- Insert NG tube, n.p.o., IV fluids, consult general surgery
Severe prerenal HUNTER:
Non-anion gap metabolic acidosis:
-Cr continued to worsen. Patient also had worsening anion gap metabolic acidosis despite bicarb gtt and no UOP.
-Appreciate net sorter input, HD started 09/15/24
-Continue dialysis as per nephrology
-Home ACEi/Norvasc stopped
Thrombocytopenia
-HIT panel negative, suspect secondary to sepsis
Profound hypokalemia:
- Due to diarrhea, magnesium and phosphorus levels are normal
- Repleted, follow potassium levels
Paroxysmal atrial fibrillation:
-Appreciate cardiology input, Tikosyn stopped with HUNTER
Other problems:
Hypomagnesemia, resolved
NITZA s/p CEA
H/o CVA: cont ASA/statin
Essential hypertension: Home ACEi/Norvasc stopped
HLD: Cont Zetia/statin
H/o Basal cell carcinoma
GERD: Cont PPI
DVT prophylaxis�SCDs
Full code
Updated daughter on phone 09/20
Total time spent to see the patient on the floor, examine the patient, review data and lab results, discuss treatment plan with patient, nursing staff around 51 minutes.
Physical exam
Gen: NAD, AAOx3.
Eyes: EOMI, PERRLA, no scleral icterus.
Neck: supple.
CV: remains RRR, +S1/S2, no m/r/g.
Resp: CTAB anteriorly, no rales, wheezes, or rhonchi.
Abd: remains +BS, soft, NT, ND
Skin: No rashes.
Neuro: CN 2-12 intact, non-focal.
Psych: Normal mood and affect.
Anticipated Discharge: > 48 hours
Subjective/Interval History
-
Date of Service: September 20, 2024
Patient complains of diffuse abdominal pain. Denies nausea, denies vomiting. He is having less green diarrhea. No fever.
Objective Data
-
Labs:
Laboratory Results
09/20/24
06:00
WBC Pending
Hgb Pending
Hct Pending
Plt Count Pending
Sodium Pending
Potassium Pending
Chloride Pending
Carbon Dioxide Pending
BUN Pending
Creatinine Pending
Glucose Pending
Calcium Pending
Vital Signs:
Vital Signs
Temp Pulse Resp BP Pulse Ox
97.9 F 91 18 101/57 96
09/20/24 07:05 09/20/24 07:05 09/20/24 07:05 09/20/24 07:05 09/20/24 07:05
I&O
09/19/24 09/20/24 09/21/24
06:59 06:59 06:59
Intake Total 595 / 595 480 / 480
Output Total 1625 / 1625 250 / 250
Balance -1030 / -1030 230 / 230
[2024-09-20] MEDS: ATIVAN 1 MG IV (18:01)
[2024-09-20] MEDS: NSS (PRESERVATIVE FREE) 0.5 ML IV (18:02)
[2024-09-20 18:31] LABS: Glucose - Point of Care 116 mg/dl (70-99)
--- NOTE | 2024-09-20 18:43 | PTCARENOTE ---
Addendum entered by Amber Rubin RN 09/20/24 19:12:
During change of shift, pt NG tube was removed due to incorrect placement. Giving pt some time before replacement. assistant store manager operations aware and going to be placing.
Original Note:
Order placed for NG tube on suction low intermittent at 1750. Pt received prn Ativan IV prior as ordered by . NG tube placed at 1830 with another RN at bedside. Inserted to 60 with no current complaints. Chest x-ray ordered to ensure placement,
plan of care ongoing.
[2024-09-20 19:25] VITALS: BP 125/72
[2024-09-20 23:00] VITALS: BP 126/81
[2024-09-20 23:59] LABS: Glucose - Point of Care 114 mg/dl (70-99)
[2024-09-21 03:00] VITALS: BP 110/63
[2024-09-21 06:00] VITALS: BMI 27.8
[2024-09-21 06:19] LABS: Glucose - Point of Care 89 mg/dl (70-99)
[2024-09-21 07:00] VITALS: BP 136/57
--- NOTE | 2024-09-21 08:48 | W.PN.HOSP.TC ---
Today's Communication/Plan
-
see bold
Assessment / Plan
Assessment / Plan
CT A/P: Fluid attenuation in the colon most in keeping with a diarrheal illness. No other acute inflammatory process in the abdomen or pelvis within the limitations of the lack of oral and intravenous contrast.
Septic shock due to acute enterocolitis with bacteremia:
-CT A/P above
-C. difficile/Norovirus NEG
-Status post vancomycin and cefepime on 09/15/2024
-Status post Levophed, out of the ICU 09/18
-Appreciate ID input, continue high-dose empiric Rocephin
Ileus
Worsening abdominal distention
- Abdominal x-ray shows possible ileus, cannot rule out obstruction
- 09/20 CT abdomen and pelvis with oral contrast, without IV contrast, shows ileus, enteritis, dilated small bowel, cannot rule out obstruction
- General Surgery following, continue NG tube, n.p.o., IV fluids
Severe prerenal HUNTER:
Non-anion gap metabolic acidosis:
-Cr continued to worsen. Patient also had worsening anion gap metabolic acidosis despite bicarb gtt and no UOP.
-Appreciate stenciler input, HD started 09/15/24
-Continue dialysis as per nephrology
-Plan for discharge on outpatient dialysis, renal recovery to be monitored outpatient
-Home ACEi/Norvasc stopped
Thrombocytopenia
-HIT panel negative, suspect secondary to sepsis
Profound hypokalemia:
- Due to diarrhea, magnesium and phosphorus levels are normal
- Replete as needed
Paroxysmal atrial fibrillation:
-Appreciate cardiology input, Tikosyn stopped with HUNTER
Other problems:
Hypomagnesemia, resolved
NITZA s/p CEA
H/o CVA: cont ASA/statin
Essential hypertension: Home ACEi/Norvasc stopped
HLD: Cont Zetia/statin
H/o Basal cell carcinoma
GERD: Cont PPI
DVT prophylaxis�SCDs
Full code
Updated daughter on phone 09/21
Total time spent to see the patient on the floor, examine the patient, review data and lab results, discuss treatment plan with patient, nursing staff around 50 minutes.
Physical exam
Gen: NAD, AAOx3.
Eyes: EOMI, PERRLA, no scleral icterus.
Neck: supple.
CV: remains RRR, +S1/S2, no m/r/g.
Resp: CTAB anteriorly, no rales, wheezes, or rhonchi.
Abd: Hypoactive bowel sounds noted, less distended
Skin: No rashes.
Neuro: CN 2-12 intact, non-focal.
Psych: Normal mood and affect.
Anticipated Discharge: > 48 hours
Subjective/Interval History
-
Date of Service: September 21, 2024
Patient reports feeling much better after insertion of his NG tube last night, with aspiration of gastric contents. His severe abdominal gas pain has pretty much resolved. He continues to have small amounts of liquid green diarrhea. No nausea.
No chest pain, no shortness of breath. No fever.
Objective Data
-
Labs:
Laboratory Results
09/21/24
08:32
WBC Pending
Hgb Pending
Hct Pending
Plt Count Pending
Sodium Pending
Potassium Pending
Chloride Pending
Carbon Dioxide Pending
BUN Pending
Creatinine Pending
Glucose Pending
Calcium Pending
Vital Signs:
Vital Signs
Temp Pulse Resp BP Pulse Ox
98.2 F 86 19 136/57 97
09/21/24 07:00 09/21/24 07:00 09/21/24 07:00 09/21/24 07:00 09/21/24 07:00
I&O
09/20/24 09/21/24 09/22/24
06:59 06:59 06:59
Intake Total 480 / 480 420 / 420
Output Total 250 / 250
Balance 230 / 230 420 / 420
[2024-09-21 09:01] LABS: Hemoglobin 15.2 g/dL (13.0-18.0); Mean Corp Hgb Conc. 35.3 g/dL (33.0-37.0); Mean Corpuscular Hgb 31.2 pg (27.0-31.0); Mean Corpuscular Volume 88.3 fL (80.0-94.0); Mean Platelet Volume 10.8 fL (7.4-10.4); Platelet Count 219 10^3/uL (130-400); Red Blood Cell Count 4.87 10^6/uL (4.70-6.10); Red Cell Dist. Width 13.4 % (11.5-14.5); White Blood Cell Count 9.7 10^3/uL (4.8-10.8)
--- NOTE | 2024-09-21 09:16 | CON.GS ---
Addendum entered and electronically signed by Eladio Gauthier MD 09/21/24 15:22:
I saw and examined the patient.
The Commercial Account Manager's note was reviewed and I agree with the note.
Comment: Pt admitted with septic shock 2/2 salmonella gastroenteritis 8 days ago, with recently increasing discomfort from abdominal bloating. Pt requested NGT to help with the bloating. He denies n/v. He is passing liquid stool and flatus. His
belly is distended and soft and nt. CT with dilated fluid filled sb lops and fluid filled colon. No clear transition point, appears to be a gradual taper. Suspect ileus. If no improvement and pt wishes to keep NGT he may require TPN. Will obtain rpt
KUB to assess transit of contrast.
Original Note:
Consultation
-
Date/Time Consultation Performed: 09/21/24914
Medical History
-
History of Present Illness:
84 yo male with a h/o AFIB s/p pvi/watchman in 2020 now off AC, CVA s/p left CEA 2023, open appendectomy in the , recurrent SBO's who presented initially on 09/13/24 with abdominal pain and severe diarrhea with salmonella noted in the blood and
stool and required ICU management initially with hypotension requiring pressors but was able to be transferred to med surg on 09/18. He is being followed by ID for management. He had HUNTER noted as well with nephrology following for management and
initiation of HD. He had noted PAF during this presentation as well, followed by cardiology. He notes that the initial diffuse diarrhea he was having improved during his stay and he was able to have diet advanced and was having more solid stools.
Unfortunately, yesterday, he noted diffuse abdominal pain with ongoing nausea. Diarrhea returned and although he is passing some loose material he is not passing much flatus. He felt very distended yesterday and requested an NGT be placed as his
symptoms felt very similiar to prior bowel obstructions he has had in the past. Today, he feels improved. He denies nausea and notes that distention is improving as well.
Past Medical History
Past Medical History: Arrhythmias (Afib s/p Watchman, PVI 2020), Cancer (basal cell), CVA (carotid stenosis), GERD, HTN, Hypercholesterolemia and Other (GIB secondary to eliquis, iron def anemia, SBOs)
Past Surgical History: Appendectomy (open), Cardiac (left CEA 2023) and Orthopedic (BL TKA)
Social History
Tobacco: Former Smoker (remote)
Alcohol: None
Personal:
Living: With Family
Employment: Retired
Family History
Family History: CAD
Allergies / Home Medications
Allergy/AdvReac Type Severity Reaction Status Date / Time
No Known Allergies Allergy Verified 10/06/23 11:48
�Medication �Instructions �Recorded �Confirmed �Type
pantoprazole 40 mg tablet,delayed 40 mg PO Daily #90 tabs 06/27/20 09/13/24 Rx
release
ezetimibe 10 mg tablet (Zetia) 10 mg PO DAILY High cholesterol 11/10/21 09/13/24 History
dofetilide 500 mcg capsule 500 mcg PO Q12 #60 caps 11/13/21 09/13/24 Rx
rosuvastatin 40 mg tablet 40 mg PO DAILY #30 tabs 11/13/21 09/13/24 Rx
aspirin 81 mg chewable tablet 81 mg PO DAILY Blood Clot 03/08/23 09/13/24 History
Prevention/Tx
acetaminophen 325 mg tablet 650 mg PO Q6HPRN PRN mild pain 09/13/24 09/13/24 History
(Tylenol)
amlodipine 10 mg tablet (Norvasc) 10 mg PO DAILY Blood Pressure 09/13/24 09/13/24 History
lisinopril 40 mg tablet 40 mg PO DAILY Blood Pressure 09/13/24 09/13/24 History
loperamide 2 mg-simethicone 125 mg 1 tab PO Q6HPRN PRN diarrhea 09/13/24 09/13/24 History
tablet
Review of Systems
-
History Source: Patient
All other systems: Negative unless noted
A 10 point review of systems was completed, and was negative except as per HPI.
Physical Exam
Vital Signs
Temp Pulse Resp BP Pulse Ox
98.2 F 86 19 136/57 97
09/21/24 07:00 09/21/24 07:00 09/21/24 07:00 09/21/24 07:00 09/21/24 07:00
09/20/24 09/21/24 09/22/24
06:59 06:59 06:59
Actual Weight 80.513 kg
Body Mass Index (BMI) 27.8
Lab Results
09/21/24 08:32
WBC 9.7 10^3/uL (4.8-10.8) 09/21/24 08:32
Hgb 15.2 g/dL (13.0-18.0) 09/21/24 08:32
Hct 43.0 % (39.0-52.0) 09/21/24 08:32
Plt Count 219 10^3/uL (130-400) D 09/21/24 08:32
Abs Immat Gran (auto) 0.1 10^3/uL (0-0.05) H 09/20/24 14:03
Neutrophils % 90.1 % (42.2-75.2) H 09/20/24 14:03
Physical Exam
General: Well Developed and No Apparent Distress
HEENT: Moist Mucous Membranes
Respiratory: Non Labored Respirations
GI: Soft, Tender and Distended (upper abdomen > lower)
Skin: Warm and Dry
Neuro: Awake, Alert and AO x 3
Psych: Calm
Data Reviewed
-
CT Scan: Image Personally Visualized and interpreted, Report Reviewed by me, Discussed with Physician and Discussed with Patient
Labs: Labs Reviewed by me, Discussed with Physician and Discussed with Patient
Old Records: Reviewed
Assessment / Plan
-
84 yo male with a h/o AFIB s/p pvi/watchman in 2020 now off AC, CVA s/p left CEA 2023, open appendectomy in the , recurrent SBO's who presented initially on 09/13/24 with abdominal pain and severe diarrhea with salmonella noted in the blood and
stool and required ICU management initially with hypotension requiring pressors but was able to be transferred to med surg on 09/18. He has been initiated on HD since presentation.
He initially had improvement in his GI symptoms but subsequently developing increased pain, nausea and difficulty passing flatus although still passing small loose stools. NGT placed yesterday with noted improvement in symptoms. CT imaging reviewed
with findings consistent with Ileus secondary to gastroenteritis vs less likely a pSBO as clear transition point isn't able to be visualized. WBC wnl, thrombocytopenia resolved. On HD currently. Afebrile, VSS.
Plan:
Continue NGT for decompression
Continue NPO, consider TPN. Will consult varnish remover to evaluate
Check nutritional labs
Analgesics/antiemetics prn
Medical management as per primary team
[2024-09-21 10:09] LABS: Blood Urea Nitrogen 59 mg/dl (9-20); Calcium 8.6 mg/dl (8.4-10.2); Carbon Dioxide 21 mmol/L (22-30); Chloride 102 mmol/L (98-107); Estimated Creatinine Clearance 10 ml/min; Glucose 88 mg/dl (70-99); Sodium 135 mmol/L (135-145); eGFR 10.64
--- NOTE | 2024-09-21 10:22 | W.PN.NEPH.HD ---
Assessment
-
Seen on HD. no new complaints. VSS, diarrhea less, NGT for ileus. oliguric
Progress Note - Hemodialysis
-
Date of Service: September 21, 2024
Duration: 30 minutes and 3 hours
Potassium Bath: 4
Calcium Bath: 2.5
Opti-Dialyzer: 160
Ultrafiltration: Other
Blood Flow: 400
Dialysate Flow: 600
Heparin: 0
EPO: 0
[2024-09-21 10:29] LABS: Triglycerides 259 mg/dl (10-149)
[2024-09-21 10:41] LABS: Prealbumin (Transthyretin) 17.3 mg/dl (17.6-36.0)
[2024-09-21 11:00] VITALS: BP 154/83
--- NOTE | 2024-09-21 11:43 | W.PN.ID1 ---
Date of Service
Date of Service: September 21, 2024
Today's Communication
- Continue ceftriaxone 2g IV q24 (d7)
Assessment / Plan
# Complicated Salmonella gastroenteritis with bacteremia
. Of note onset of diarrhea after eating chicken wings.
# Severe pre-renal HUNTER
. HD started 09/16
. improving
# Acute thrombocytopenia
# s/p Septic shock
# Ileus vs partial SBO onset 09/20
- Stool cx: + salmonella
- Repeat blood cx's neg to date
- Diarrhea decreased in frequency, now liquid gelatinous
- Contact isolation if incontinent of stool.
- Continue ceftriaxone 2g IV q24 (d7)
- plt now improving
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
Hypertension
HLD
Atrial fibrillation
CVA
Basal cell carcinoma
Left carotid endarterectomy
Appendectomy
Bilateral TKA
Chief Complaint
-: Bacteremia and Other (diarrhea)
Subjective / Review of Systems
afebrile
bp stable
ileus vs pSBO on CT; NGT placed
Vital Signs / Physical Exam
Vital Signs
Vital Signs
Temp Pulse Resp BP Pulse Ox
97.5 F 85 17 154/83 94
09/21/24 11:00 09/21/24 11:00 09/21/24 11:00 09/21/24 11:00 09/21/24 11:00
Physical Exam
Constitutional: No Acute Distress
Cardiovascular: Regular Rate and S1/S2; Negative Murmur or Rub
Pulmonary: Clear and Symmetric; Negative Wheezes or Rales
Gastrointestinal: Soft, Non Tender, Non Distended and Normal Bowel Sounds
Skin: Warm and Dry; Negative Rash or Jaundice
Objective Data
Lab Data
Lab Results
09/21/24 08:32
09/21/24 08:32
Estimated Creat Clear 10 ml/min 09/21/24 08:32
Total Bilirubin Cancelled 09/15/24 17:49
AST Cancelled 09/15/24 17:49
ALT Cancelled 09/15/24 17:49
Alkaline Phosphatase Cancelled 09/15/24 17:49
Most recent labs reviewed.
Blood Culture Final 09/19/24-835
Positive for Salmonella species.
Performed by [facility] PCR methodology.
Organism 1 Salmonella species
1. Salmonella species
Zone Size RX
--------- ---
Ciprofloxacin 28 I
1. Salmonella species
M.I.C. RX
--------- ---
Ampicillin <=8 S
Ceftazidime <=1 S
Ceftriaxone <=1 S
Tetracycline <=4 S
Trimethoprim/Sulfamethoxazole <=2/38 S
Micro Results:
09/16/24 10:46 Blood Culture - Final
Blood/Venous No Growth - Final Report
09/17/24 04:47 Blood Culture - Preliminary
Blood/Venous No Growth in 4 days- Final report to follow
09/15/24 10:08 Blood Culture - Final
Blood/Venous Salmonella species
Gram Stain - Final
09/15/24 08:42 Blood Culture - Final
Blood/Venous Salmonella species
Gram Stain - Final
09/13/24 22:18 Miscellaneous Microbiology Test - Pending
Feces/Stool
09/13/24 22:18 Salmonella/Shigella Culture - Final
Feces/Stool Salmonella species
Campylobacter Culture - Final
No Campylobacter species isolated.
Shiga Toxin Test - Final
No E. coli Shiga Toxin 1 or 2 detected.
09/13/24 22:18 C. difficile GDH Antigen & Toxins - Final
Feces/Stool Negative for toxigenic C.difficile
- Final
Negative for Norovirus GI and GII.
09/13/24 CT a/p: Fluid attenuation in the colon most in keeping with a diarrheal illness. No other acute inflammatory process in the abdomen or pelvis within the limitations of the lack of oral and intravenous contrast.
--- NOTE | 2024-09-21 12:00 | PTCARENOTE ---
Patient remains NPO with NGT. Patient's blood glucose levels 88, 89, 77. Physician made aware, order obtained for IVF D5NS. Patient tolerating ice chips for comfort. Patient ambulating to BR with walker and supervision. Patient refuses to sit in
chair today, because he is exhausted after HD.
[2024-09-21 12:19] LABS: Glucose - Point of Care 31 mg/dl (70-99)
[2024-09-21 12:23] LABS: Glucose - Point of Care 77 mg/dl (70-99)
[2024-09-21] MEDS: ROCEPHIN 2000 MG IV (12:35)
[2024-09-21] MEDS: STERILE WATER FOR INJECTION 20 ML IV (12:35)
[2024-09-21] MEDS: D5/0.9% SODIUM CHLORIDE 1000 IV ×2 (13:00→23:15)
[2024-09-21 13:05] VITALS: BMI 27.8
[2024-09-21] MEDS: CRESTOR PO (14:14)
[2024-09-21] MEDS: PROTONIX PO (14:15)
[2024-09-21] MEDS: LOW STRENGTH ASPIRIN PO (14:15)
[2024-09-21] MEDS: ZETIA PO (14:15)
[2024-09-21 15:00] VITALS: BP 128/70
--- NOTE | 2024-09-21 15:13 | PTCARENOTE ---
Patient returned from receiving an ABD XRY. KNIFE CUTTER made aware xry was complete. KNIFE CUTTER verified NGT was well placed per xry. Patient still with obstruction, NGT to remain in place. Plan of care reviewed with patient. Patient and family verbalized
understanding.
[2024-09-21 18:04] LABS: Glucose - Point of Care 101 mg/dl (70-99)
[2024-09-21 19:12] VITALS: BP 142/75
[2024-09-21 23:43] VITALS: BP 135/77
[2024-09-22 03:21] VITALS: BP 120/56
--- NOTE | 2024-09-22 04:20 | PTCARENOTE ---
Pt c/o feeling bloated 'as if NGT not working'. Suction canister exchanged and troubleshooted - suction intact, unable to manually aspirate. NGT output significantly decreased, not moving all the way through tube. TT to CHEMICAL INSTRUMENTATION OFFICER to assess and with patient
repositioning able to get some output. At this time, pt reporting relief.
[2024-09-22 06:00] VITALS: BMI 28.4
[2024-09-22 06:10] LABS: Glucose - Point of Care 109 mg/dl (70-99)
[2024-09-22 06:43] LABS: Hemoglobin 13.7 g/dL (13.0-18.0); Mean Corp Hgb Conc. 35.1 g/dL (33.0-37.0); Mean Corpuscular Hgb 31.2 pg (27.0-31.0); Mean Corpuscular Volume 88.8 fL (80.0-94.0); Mean Platelet Volume 10.1 fL (7.4-10.4); Platelet Count 202 10^3/uL (130-400); Red Blood Cell Count 4.39 10^6/uL (4.70-6.10); Red Cell Dist. Width 13.3 % (11.5-14.5); White Blood Cell Count 8.6 10^3/uL (4.8-10.8)
[2024-09-22 06:53] LABS: Blood Urea Nitrogen 31 mg/dl (9-20); Calcium 8.3 mg/dl (8.4-10.2); Carbon Dioxide 24 mmol/L (22-30); Chloride 108 mmol/L (98-107); Estimated Creatinine Clearance 22 ml/min; Glucose 120 mg/dl (70-99); Magnesium 1.8 mg/dl (1.6-2.3); Phosphorus 3.4 mg/dl (2.5-4.5); Potassium 3.6 mmol/L (3.5-5.1); Sodium 138 mmol/L (135-145); eGFR 26.28
[2024-09-22 07:24] VITALS: BP 120/62
--- NOTE | 2024-09-22 07:38 | W.PN.HOSP.TC ---
Addendum entered and electronically signed by Jarvis Bravo MD 09/22/24 14:07:
Correction, will continue SCDs for DVT prophylaxis, keep off subcu heparin in light of recent falling platelets.
Updated daughter on phone 09/22.
Original Note:
Today's Communication/Plan
-
see bold
Assessment / Plan
Assessment / Plan
CT A/P: Fluid attenuation in the colon most in keeping with a diarrheal illness. No other acute inflammatory process in the abdomen or pelvis within the limitations of the lack of oral and intravenous contrast.
Septic shock due to acute enterocolitis with bacteremia:
-CT A/P above
-C. difficile/Norovirus NEG
-Status post vancomycin and cefepime on 09/15/2024
-Status post Levophed, out of the ICU 09/18
-Appreciate ID input, continue high-dose empiric Rocephin
Ileus versus less likely partial SBO
Worsening abdominal distention
- Abdominal x-ray shows possible ileus, cannot rule out obstruction
- 09/20 CT abdomen and pelvis with oral contrast, without IV contrast, shows ileus, enteritis, dilated small bowel, cannot rule out obstruction
- General Surgery following, continue NG tube, n.p.o., IV fluids
- Patient currently having sips of clears for comfort, he has been counseled to avoid carbonated beverages and minimize clear liquids
- May need repeat CT of the abdomen and pelvis with oral contrast tomorrow if there is no improvement
Severe prerenal HUNTER:
Non-anion gap metabolic acidosis:
-Cr continued to worsen. Patient also had worsening anion gap metabolic acidosis despite bicarb gtt and no UOP.
-Appreciate mold inspector input, HD started 09/15/24
-Continue dialysis as per nephrology
-Plan for discharge on outpatient dialysis, renal recovery to be monitored outpatient
-Home ACEi/Norvasc stopped
Thrombocytopenia
-HIT panel negative, suspect secondary to sepsis
-Resolved
Profound hypokalemia:
- Due to diarrhea, magnesium and phosphorus levels are normal
- Replete as needed
Paroxysmal atrial fibrillation:
-Appreciate cardiology input, Tikosyn stopped with HUNTER
Other problems:
Hypomagnesemia, resolved
NITZA s/p CEA
H/o CVA: cont ASA/statin
Essential hypertension: Home ACEi/Norvasc stopped
HLD: Cont Zetia/statin
H/o Basal cell carcinoma
GERD: Cont PPI
DVT prophylaxis�Resume SQ heparin
Full code
Updated daughter on phone 09/21
Total time spent to see the patient on the floor, examine the patient, review data and lab results, discuss treatment plan with patient, nursing staff around 40 minutes.
Physical exam
Gen: NAD, AAOx3.
Eyes: EOMI, PERRLA, no scleral icterus.
Neck: supple.
CV: remains RRR, +S1/S2, no m/r/g.
Resp: CTAB anteriorly, no rales, wheezes, or rhonchi.
Abd: Hypoactive bowel sounds noted, less distended
Skin: No rashes.
Neuro: CN 2-12 intact, non-focal.
Psych: Normal mood and affect.
Anticipated Discharge: > 48 hours
Subjective/Interval History
-
Date of Service: September 22, 2024
Patient complains of 6 out of 10 abdominal pain. He remains distended. He is still having small amounts of green stool. Denies chest pain, denies shortness of breath. No fever, no vomiting.
Objective Data
-
Labs:
Laboratory Results
09/22/24 09/22/24
06:23 06:24
WBC 8.6
Hgb 13.7
Hct 39.0
Plt Count 202
Sodium 138
Potassium 3.6
Chloride 108 H
Carbon Dioxide 24
BUN 31 H
Creatinine 2.4 H
Glucose 120 H
Calcium 8.3 L
Vital Signs:
Vital Signs
Temp Pulse Resp BP Pulse Ox
97.8 F 82 18 120/62 95
09/22/24 07:24 09/22/24 07:24 09/22/24 07:24 09/22/24 07:24 09/22/24 07:24
I&O
09/21/24 09/22/24 09/23/24
06:59 06:59 06:59
Intake Total 420 / 420 0 / 2310
Output Total 200 / 200
Balance 420 / 420 2109 / 2109
[2024-09-22 07:51] LABS: Glucose - Point of Care 92 mg/dl (70-99)
[2024-09-22] MEDS: CRESTOR 40 MG PO (08:37)
[2024-09-22] MEDS: LOW STRENGTH ASPIRIN 81 MG PO (08:37)
[2024-09-22] MEDS: PROTONIX 40 MG PO (08:37)
[2024-09-22] MEDS: ZETIA 10 MG PO (08:37)
[2024-09-22] MEDS: TYLENOL 1000 MG PO ×3 (08:41→21:51)
[2024-09-22] MEDS: D5/0.9% SODIUM CHLORIDE 1000 IV ×2 (08:49→18:19)
--- NOTE | 2024-09-22 09:15 | W.PN.ID1 ---
Date of Service
Date of Service: September 22, 2024
Today's Communication
Continue antibiotics.
Assessment / Plan
# Complicated Salmonella gastroenteritis with bacteremia
. Of note onset of diarrhea after eating chicken wings.
# Severe pre-renal HUNTER
. HD started 09/16
. improving
# Acute thrombocytopenia
# s/p Septic shock
# Ileus vs partial SBO onset 09/20
- Stool cx: + salmonella
- Repeat blood cx's neg to date
- Diarrhea decreased in frequency, now liquid gelatinous
- Contact isolation if incontinent of stool.
- Continue ceftriaxone 2g IV q24 (d#8)
- plt now improving
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
Hypertension
HLD
Atrial fibrillation
CVA
Basal cell carcinoma
Left carotid endarterectomy
Appendectomy
Bilateral TKA
Chief Complaint
-: Bacteremia and Other (diarrhea)
Subjective / Review of Systems
Patient seen and examined. Still with significant abdominal distention. NG tube has been placed to suction. Reports resolution of diarrhea.
Review of Systems: No Fever and No Chills
Vital Signs / Physical Exam
Vital Signs
Vital Signs
Temp Pulse Resp BP Pulse Ox
97.8 F 82 18 120/62 95
09/22/24 07:24 09/22/24 07:24 09/22/24 07:24 09/22/24 07:24 09/22/24 09:00
Physical Exam
Constitutional: No Acute Distress
Cardiovascular: Regular Rate and S1/S2; Negative S3/S4
Pulmonary: Clear and Symmetric; Negative Wheezes or Rales
Gastrointestinal: Soft, Non Tender, Distended and Decreased Bowel Sounds
Skin: Warm and Dry; Negative Rash or Jaundice
Neurological: Awake and Alert
Psychological: Calm
Objective Data
Lab Data
Lab Results
09/22/24 06:24
09/22/24 06:23
Estimated Creat Clear 22 ml/min 09/22/24 06:23
Total Bilirubin Cancelled 09/15/24 17:49
AST Cancelled 09/15/24 17:49
ALT Cancelled 09/15/24 17:49
Alkaline Phosphatase Cancelled 09/15/24 17:49
Most recent labs reviewed.
Micro Results:
09/17/24 04:47 Blood Culture - Final
Blood/Venous No Growth - Final Report
09/16/24 10:46 Blood Culture - Final
Blood/Venous No Growth - Final Report
09/15/24 10:08 Blood Culture - Final
Blood/Venous Salmonella species
Gram Stain - Final
09/15/24 08:42 Blood Culture - Final
Blood/Venous Salmonella species
Gram Stain - Final
09/13/24 22:18 Miscellaneous Microbiology Test - Pending
Feces/Stool
09/13/24 22:18 Salmonella/Shigella Culture - Final
Feces/Stool Salmonella species
Campylobacter Culture - Final
No Campylobacter species isolated.
Shiga Toxin Test - Final
No E. coli Shiga Toxin 1 or 2 detected.
09/13/24 22:18 C. difficile GDH Antigen & Toxins - Final
Feces/Stool Negative for toxigenic C.difficile
- Final
Negative for Norovirus GI and GII.
Imaging:
09/21/2024 Abdominal flatplate: Numerous dilated loops of small bowel, similar to recent examination. Air is noted within the colon without significant dilatation. Findings most likely represent small bowel obstruction, most likely partial.
09/13/24 CT a/p: Fluid attenuation in the colon most in keeping with a diarrheal illness. No other acute inflammatory process in the abdomen or pelvis within the limitations of the lack of oral and intravenous contrast.
--- NOTE | 2024-09-22 10:38 | W.PN.NEPH.PH ---
Today's Communication / Plan
-
TPN
Assessment/Plan
-
84-year-old male past medical history of carotid stenosis, prior CVA, hypertension, hyperlipidemia, basal cell carcinoma, atrial fibrillation, GERD, presenting with predominantly diarrhea and some vomiting starting 2 days ago.
Renal consultation for acute kidney injury creatinine of 4 on admission increased to 5.3
Hypotensive on admission with some improvement with IV fluids
Impression.
Acute kidney injury creatinine 5.3, but normal baseline
Diarrhea enteritis
hypokalemia secondary to diarrhea.
Atrial fibrillation.
thrombocytopenia
Plan.
cap IVF
TPN ordered, lytes balanced
follow BMP
continue abx for salmonella
will need to hold heparin with recent falling platelets
NGT per surgery
Next HD tuesday
follow Cr trend over weekend. may be some recovery
-
-
Date of Service: September 22, 2024
CC / HPI / ROS
-
Chief Complaint:
Diarrhea
History of Present Illness:
on abx for salmonella enteritis
no fever
tolerated HD yesterday
BP stable
oliguric
Cr 2.[address] for ileus
Review of Systems:
no CP/SOB
Labs
-
Labs:
WBC 8.6 10^3/uL (4.8-10.8) 09/22/24 06:24
RBC 4.39 10^6/uL (4.70-6.10) L 09/22/24 06:24
Hgb 13.7 g/dL (13.0-18.0) 09/22/24 06:24
Hct 39.0 % (39.0-52.0) 09/22/24 06:24
Plt Count 202 10^3/uL (130-400) 09/22/24 06:24
Sodium 138 mmol/L (135-145) 09/22/24 06:23
Potassium 3.6 mmol/L (3.5-5.1) 09/22/24 06:23
Chloride 108 mmol/L (98-107) H 09/22/24 06:23
Carbon Dioxide 24 mmol/L (22-30) 09/22/24 06:23
BUN 31 mg/dl (9-20) H 09/22/24 06:23
Creatinine 2.4 mg/dL (0.7-1.3) H 09/22/24 06:23
eGFR 26.28 09/22/24 06:23
Glucose 120 mg/dl (70-99) H 09/22/24 06:23
Calcium 8.3 mg/dl (8.4-10.2) L 09/22/24 06:23
Phosphorus 3.4 mg/dl (2.5-4.5) 09/22/24 06:23
Albumin Cancelled 09/15/24 17:49
Physical Exam
-
Vital Signs:
Vital Signs
Temp Pulse Resp BP Pulse Ox
97.8 F 82 18 120/62 95
09/22/24 07:24 09/22/24 07:24 09/22/24 07:24 09/22/24 07:24 09/22/24 09:00
Cardiovascular:: Regular rate and rhythm
Respiratory:: Bilateral: Coarse
Lung Excursion:: Normal
Abdomen:: Nontender and Soft
Bowel Sounds:: Decreased
Extremity Edema:: None: Bilateral:
[2024-09-22 11:10] VITALS: BP 147/52
[2024-09-22] MEDS: STERILE WATER FOR INJECTION 20 ML IV (11:33)
[2024-09-22] MEDS: ROCEPHIN 2000 MG IV (11:33)
[2024-09-22 12:29] VITALS: BMI 28.4
--- NOTE | 2024-09-22 13:02 | W.PN.GS2 ---
Addendum entered and electronically signed by Eladio Gauthier MD 09/22/24 13:19:
I saw and examined the patient.
The Toaster Operator's note was reviewed and I agree with the note.
Comment: Remains distended., Advised not to drink carbonated beverages. passing flatus and BM, less liquidy stool now. Consider CT with PO contrast tomorrow if no improvement. For now NPO/IVF
Original Note:
Today's Communication / Plan
-
NPO/NGT
TPN
Assessment / Plan
-
84 yo male with h/o open appendectomy [facility] presenting with septic shock and ARF secondary to salmonella gastroenteritis with increased comfort/bloating with attempted dietary advancement.
NGT placed to assist with symptom management, continues with distention. Increased pain with PO intake around NGT today
Continues to pass flatus/loose stool
CT with fluid filled small rosemary loops/colon without clear transition point. PO contrast mostly in stomach on this image. Suspect ileus vs less likely partial SBO.
XR with NGT appropriately placed within the stomach (hiatal hernia present), distention persists
No leukocytosis, afebrile, VSS
--Keep NPO with NGT
--If no improvement tomorrow, will plan CT imaging with PO contrast to further evaluate
--Would recommend TPN, d/w nephrology who will manage
--Nutrition following
--No plans for surgery at this time
Medical management as per hospitalist team.
Subjective Data
-
Date of Service: September 22, 2024
Patient seen and examined at bedside with Dr. Gauthier. Denies n/v. Pain increasing today. He does admit to drinking quite a bit of fluid around the NGT. Passing some flatus and loose stool still.
Objective Data
-
Intake and Output
09/21/24 09/22/24 09/23/24
06:59 06:59 06:59
Intake Total 420 / 420 2310 / 2310
Output Total 200 / 200
Balance 420 / 420 2110 / 2110
Intake:
Oral fluids 420 / 420 300 / 300
IV fluids (Total) 1200 / 1200
Amount instilled into GI Tube ( 810 / 810
Total)
[place] Sump 810 / 810
Output:
Urine, Voided 200 / 200
Other:
Number of approximated MODERATE 2 3
amounts of urine
Vital Signs
Temp Pulse Resp BP Pulse Ox
97.6 F 88 16 147/52 96
09/22/24 11:10 09/22/24 11:10 09/22/24 11:10 09/22/24 11:10 09/22/24 11:10
Lab Results
09/22/24 06:24
09/22/24 10:42
Calcium Cancelled 09/22/24 10:42
Phosphorus 3.4 mg/dl (2.5-4.5) 09/22/24 06:23
Magnesium Cancelled 09/22/24 10:42
Total Bilirubin Cancelled 09/22/24 10:42
AST Cancelled 09/22/24 10:42
ALT Cancelled 09/22/24 10:42
Alkaline Phosphatase Cancelled 09/22/24 10:42
Total Protein Cancelled 09/22/24 10:42
Albumin Cancelled 09/22/24 10:42
Physical Exam
-
NAD
ABD softly distended, mild generalized tenderness, head grower
NGT with light bilious outputs
[2024-09-22 14:47] LABS: Glucose - Point of Care 106 mg/dl (70-99)
[2024-09-22 15:13] VITALS: BP 128/77
[2024-09-22 17:38] LABS: Glucose - Point of Care 104 mg/dl (70-99)
[2024-09-22 19:55] VITALS: BP 151/88
[2024-09-22 23:23] VITALS: BP 150/84
[2024-09-23 00:12] LABS: Glucose - Point of Care 111 mg/dl (70-99)
[2024-09-23 03:36] VITALS: BP 128/81
[2024-09-23] MEDS: D5/0.9% SODIUM CHLORIDE IV (05:58)
[2024-09-23] MEDS: D5/0.9% SODIUM CHLORIDE 1000 IV ×2 (05:59→16:01)
[2024-09-23 06:00] VITALS: BMI 28.2
[2024-09-23 06:02] LABS: Blood Urea Nitrogen 27 mg/dl (9-20); Calcium 8.4 mg/dl (8.4-10.2); Carbon Dioxide 23 mmol/L (22-30); Chloride 112 mmol/L (98-107); Estimated Creatinine Clearance 25 ml/min; Glucose 122 mg/dl (70-99); Magnesium 1.7 mg/dl (1.6-2.3); Phosphorus 3.6 mg/dl (2.5-4.5); Potassium 3.5 mmol/L (3.5-5.1); Sodium 142 mmol/L (135-145); Triglycerides 225 mg/dl (10-149); eGFR 30.85
[2024-09-23 07:38] VITALS: BP 129/69
[2024-09-23 07:48] LABS: Glucose - Point of Care 112 mg/dl (70-99)
--- NOTE | 2024-09-23 07:50 | W.PN.HOSP.TC ---
Today's Communication/Plan
-
see bold
Assessment / Plan
Assessment / Plan
CT A/P: Fluid attenuation in the colon most in keeping with a diarrheal illness. No other acute inflammatory process in the abdomen or pelvis within the limitations of the lack of oral and intravenous contrast.
Septic shock due to acute enterocolitis with bacteremia:
-CT A/P above
-C. difficile/Norovirus NEG
-Status post vancomycin and cefepime on 09/15/2024
-Status post Levophed, out of the ICU 09/18
-Appreciate ID input, continue high-dose empiric Rocephin
Ileus versus less likely partial SBO
Worsening abdominal distention
- Abdominal x-ray shows possible ileus, cannot rule out obstruction
- 09/20 CT abdomen and pelvis with oral contrast, without IV contrast, shows ileus, enteritis, dilated small bowel, cannot rule out obstruction
- General Surgery following, continue n.p.o., IV fluids
- Patient currently having sips of clears for comfort, he has been counseled to avoid carbonated beverages and minimize clear liquids
- 6/8 NG tube clamp trial today
- Continue TPN as per nephrology, started on 09/22
Severe prerenal HUNTER:
Non-anion gap metabolic acidosis:
-Cr continued to worsen. Patient also had worsening anion gap metabolic acidosis despite bicarb gtt and no UOP.
-Appreciate cold storage superintendent input, HD started 09/15/24
-Continue dialysis as per nephrology
-Plan for discharge on outpatient dialysis, renal recovery to be monitored outpatient
-Home ACEi/Norvasc stopped
Thrombocytopenia
-HIT panel negative, suspect secondary to sepsis
-Resolved
Profound hypokalemia:
- Due to diarrhea, magnesium and phosphorus levels are normal
- Replete as needed
Paroxysmal atrial fibrillation:
-Appreciate cardiology input, Tikosyn stopped with HUNTER
Other problems:
Hypomagnesemia, resolved
NITZA s/p CEA
H/o CVA: cont ASA/statin
Essential hypertension: Home ACEi/Norvasc stopped
HLD: Cont Zetia/statin
H/o Basal cell carcinoma
GERD: Cont PPI
DVT prophylaxis�SCDs secondary to recent thrombocytopenia
Full code
Updated daughter on phone 09/23
Total time spent to see the patient on the floor, examine the patient, review data and lab results, discuss treatment plan with patient, nursing staff around 45 minutes.
Physical exam
Gen: NAD, AAOx3.
Eyes: EOMI, PERRLA, no scleral icterus.
Neck: supple.
CV: remains RRR, +S1/S2, no m/r/g.
Resp: CTAB anteriorly, no rales, wheezes, or rhonchi.
Abd: Hypoactive bowel sounds noted, less distended
Skin: No rashes.
Neuro: CN 2-12 intact, non-focal.
Psych: Normal mood and affect.
Anticipated Discharge: > 48 hours
Subjective/Interval History
-
Date of Service: September 22, 2024
Patient reports mild improvement in abdominal pain, currently 4 out of 10 in intensity. Feels nauseous, is passing gas and stool. No fever. No chest pain, no shortness of breath.
Objective Data
-
Labs:
Laboratory Results
09/22/24 09/22/24 09/22/24
06:23 06:24 10:42
WBC 8.6
Hgb 13.7
Hct 39.0
Plt Count 202
Sodium 138 Cancelled
Potassium 3.6 Cancelled
Chloride 108 H Cancelled
Carbon Dioxide 24 Cancelled
BUN 31 H Cancelled
Creatinine 2.4 H Cancelled
Glucose 120 H Cancelled
Calcium 8.3 L Cancelled
Total Bilirubin Cancelled
AST Cancelled
ALT Cancelled
Alkaline Phosphatase Cancelled
Vital Signs:
Vital Signs
Temp Pulse Resp BP Pulse Ox
97.6 F 88 16 147/52 96
09/22/24 11:10 09/22/24 11:10 09/22/24 11:10 09/22/24 11:10 09/22/24 11:10
I&O
09/21/24 09/22/24 09/23/24
06:59 06:59 06:59
Intake Total 420 / 420 2310 / 2310
Output Total 200 / 200 700 / 700
Balance 420 / 420 2110 / 2110 -700 / -700
[2024-09-23] MEDS: NSS (PRESERVATIVE FREE) 10 ML IV (08:45)
[2024-09-23] MEDS: PROTONIX IV 40 MG IV (08:45)
[2024-09-23] MEDS: LOW STRENGTH ASPIRIN 81 MG PO (08:45)
[2024-09-23] MEDS: OFIRMEV 100 IV (09:24)
--- NOTE | 2024-09-23 10:00 | W.PN.GS2 ---
Addendum entered and electronically signed by Eladio Gauthier MD 09/23/24 10:39:
I saw and examined the patient.
The Strategic Marketing Specialist's note was reviewed and I agree with the note.
Comment: Feels the same. High NG output but drinking lots of PO. Passing flatus and liquid stools. Exam distended and minimally ttp. For clamp trial.
Original Note:
Today's Communication / Plan
-
NGT clamp trial
Assessment / Plan
-
84 yo male [facility] with septic shock and ARF secondary to salmonella gastroenteritis with increased comfort/bloating with attempted dietary advancement.
NGT placed to assist with symptom management, continues with distention.
Continues to pass flatus/loose stool. Pain improved.
CT with fluid filled small bowel loops/colon without clear transition point. PO contrast mostly in stomach on this image. Suspect ileus vs less likely partial SBO.
XR with NGT appropriately placed within the stomach (hiatal hernia present)
No leukocytosis, afebrile, VSS
--Clamp trial of NGT
--TPN as per nephrology
--Nutrition following
--No plans for surgery at this time
Medical management as per hospitalist team.
Subjective Data
-
Date of Service: September 23, 2024
Patient seen and examined at bedside with Dr. Gauthier. Denies n/v. Passing flatus and liquid stools. Still feels quite bloated but pain is improved.
Objective Data
-
Intake and Output
09/22/24 09/23/24 09/24/24
06:59 06:59 06:59
Intake Total 1560 / 1560 60 / 60
Output Total 950 / 950 2200 / 2200
Balance 610 / 610 -2140 / -2140
Intake:
Oral fluids 300 / 300 60 / 60
IV fluids (Total) 1200 / 1200
Amount instilled into GI Tube ( 60 / 60
Total)
[place] Sump 60 / 60
Output:
Gastrointestinal tube output ( 750 / 750 1750 / 1750
Total)
[place] Sump 750 / 750 1750 / 1750
Urine, Voided 200 / 200 450 / 450
Other:
Number of approximated MODERATE 3
amounts of urine
Vital Signs
Temp Pulse Resp BP Pulse Ox
98 F 93 16 129/69 96
09/23/24 07:38 09/23/24 07:38 09/23/24 07:38 09/23/24 07:38 09/23/24 07:38
Lab Results
09/22/24 06:24
09/23/24 05:27
Calcium 8.4 mg/dl (8.4-10.2) 09/23/24 05:27
Phosphorus 3.6 mg/dl (2.5-4.5) 09/23/24 05:27
Magnesium 1.7 mg/dl (1.6-2.3) 09/23/24 05:27
Total Bilirubin Cancelled 09/22/24 10:42
AST Cancelled 09/22/24 10:42
ALT Cancelled 09/22/24 10:42
Alkaline Phosphatase Cancelled 09/22/24 10:42
Total Protein Cancelled 09/22/24 10:42
Albumin Cancelled 09/22/24 10:42
Physical Exam
-
NAD
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
NGT with light bilious outputs
--- NOTE | 2024-09-23 11:05 | W.PN.NEPH.PH ---
Today's Communication / Plan
-
follow BMP
Assessment/Plan
-
84-year-old male past medical history of carotid stenosis, prior CVA, hypertension, hyperlipidemia, basal cell carcinoma, atrial fibrillation, GERD, presenting with predominantly diarrhea and some vomiting starting 2 days ago.
Renal consultation for acute kidney injury creatinine of 4 on admission increased to 5.3
Hypotensive on admission with some improvement with IV fluids
Impression.
Acute kidney injury creatinine 5.3, but normal baseline
Diarrhea enteritis
hypokalemia secondary to diarrhea.
Atrial fibrillation.
thrombocytopenia
Plan.
TPN ordered, lytes balanced
follow BMP
continue abx for salmonella
holding heparin given low plts previously
NGT per surgery
Next HD tomorrow
follow Cr trend, he may be recovering
-
-
Date of Service: September 23, 2024
CC / HPI / ROS
-
Chief Complaint:
Diarrhea
History of Present Illness:
on abx for salmonella enteritis
no fever
tolerated HD Tuesday
BP stable
oliguric
Cr 2.[address] for ileus
TPN not created yesterday-system issues
Review of Systems:
no CP/SOB
Labs
-
Labs:
WBC 8.6 10^3/uL (4.8-10.8) 09/22/24 06:24
RBC 4.39 10^6/uL (4.70-6.10) L 09/22/24 06:24
Hgb 13.7 g/dL (13.0-18.0) 09/22/24 06:24
Hct 39.0 % (39.0-52.0) 09/22/24 06:24
Plt Count 202 10^3/uL (130-400) 09/22/24 06:24
Sodium 142 mmol/L (135-145) 09/23/24 05:27
Potassium 3.5 mmol/L (3.5-5.1) 09/23/24 05:27
Chloride 112 mmol/L (98-107) H 09/23/24 05:27
Carbon Dioxide 23 mmol/L (22-30) 09/23/24 05:27
BUN 27 mg/dl (9-20) H 09/23/24 05:27
Creatinine 2.1 mg/dL (0.7-1.3) H 09/23/24 05:27
eGFR 30.85 09/23/24 05:27
Glucose 122 mg/dl (70-99) H 09/23/24 05:27
Calcium 8.4 mg/dl (8.4-10.2) 09/23/24 05:27
Phosphorus 3.6 mg/dl (2.5-4.5) 09/23/24 05:27
Albumin Cancelled 09/22/24 10:42
Physical Exam
-
Vital Signs:
Vital Signs
Temp Pulse Resp BP Pulse Ox
98 F 93 16 129/69 96
09/23/24 07:38 09/23/24 07:38 09/23/24 07:38 09/23/24 07:38 09/23/24 07:38
Cardiovascular:: Regular rate and rhythm
Respiratory:: Bilateral: Coarse
Lung Excursion:: Normal
Abdomen:: Nontender and Soft
Bowel Sounds:: Normal
Extremity Edema:: None: Bilateral:
--- NOTE | 2024-09-23 11:26 | W.PN.ID1 ---
Date of Service
Date of Service: September 23, 2024
Today's Communication
Continue ceftriaxone
Assessment / Plan
# Complicated Salmonella gastroenteritis with bacteremia
. Of note onset of diarrhea after eating chicken wings.
# Severe pre-renal HUNTER
. HD started 09/16
. improving
# Acute thrombocytopenia
# s/p Septic shock
# Ileus vs partial SBO onset 09/20
- Stool cx: + salmonella
- Repeat blood cx's neg to date
- Diarrhea decreased in frequency, now liquid gelatinous
- Contact isolation if incontinent of stool.
- Continue ceftriaxone 2g IV q24 (d#9)
- Thrombocytopenia resolved
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
Hypertension
HLD
Atrial fibrillation
CVA
Basal cell carcinoma
Left carotid endarterectomy
Appendectomy
Bilateral TKA
Chief Complaint
-: Bacteremia and Other (diarrhea)
Subjective / Review of Systems
Review of Systems: No Fever, No Chills, No Abdominal Pain and Diarrhea
Vital Signs / Physical Exam
Vital Signs
Vital Signs
Temp Pulse Resp BP Pulse Ox
98 F 93 16 129/69 96
09/23/24 07:38 09/23/24 07:38 09/23/24 07:38 09/23/24 07:38 09/23/24 07:38
Physical Exam
Constitutional: No Acute Distress
Head: Other (NG in place; clamped)
Pulmonary: Clear and Non Labored; Negative Wheezes
Gastrointestinal: Distended
Skin: Warm and Dry; Negative Rash or Jaundice
Neurological: Awake and Alert
Psychological: Calm
Objective Data
Lab Data
Lab Results
09/22/24 06:24
09/23/24 05:27
Estimated Creat Clear 25 ml/min 09/23/24 05:27
Total Bilirubin Cancelled 09/22/24 10:42
AST Cancelled 09/22/24 10:42
ALT Cancelled 09/22/24 10:42
Alkaline Phosphatase Cancelled 09/22/24 10:42
Most recent labs reviewed.
Micro Results:
09/17/24 04:47 Blood Culture - Final
Blood/Venous No Growth - Final Report
09/16/24 10:46 Blood Culture - Final
Blood/Venous No Growth - Final Report
09/15/24 10:08 Blood Culture - Final
Blood/Venous Salmonella species
Gram Stain - Final
09/15/24 08:42 Blood Culture - Final
Blood/Venous Salmonella species
Gram Stain - Final
09/13/24 22:18 Miscellaneous Microbiology Test - Pending
Feces/Stool
09/13/24 22:18 Salmonella/Shigella Culture - Final
Feces/Stool Salmonella species
Campylobacter Culture - Final
No Campylobacter species isolated.
Shiga Toxin Test - Final
No E. coli Shiga Toxin 1 or 2 detected.
09/13/24 22:18 C. difficile GDH Antigen & Toxins - Final
Feces/Stool Negative for toxigenic C.difficile
- Final
Negative for Norovirus GI and GII.
Imaging:
09/21/2024 Abdominal flatplate: Numerous dilated loops of small bowel, similar to recent examination. Air is noted within the colon without significant dilatation. Findings most likely represent small bowel obstruction, most likely partial.
09/13/24 CT a/p: Fluid attenuation in the colon most in keeping with a diarrheal illness. No other acute inflammatory process in the abdomen or pelvis within the limitations of the lack of oral and intravenous contrast.
[2024-09-23] MEDS: STERILE WATER FOR INJECTION 20 ML IV (12:31)
[2024-09-23] MEDS: ROCEPHIN 2000 MG IV (12:31)
[2024-09-23 13:04] LABS: Glucose - Point of Care 120 mg/dl (70-99)
[2024-09-23 15:37] VITALS: BP 142/81
--- NOTE | 2024-09-23 17:15 | PTCARENOTE ---
Surgery team in this AM around 0900 to assess pt with new orders to do an NG clamp trial. Tube was clamped around 0930 and was ordered to be clamped until 1700. At 1700, MD order to test residual and pull NG tube if <150 cc. Around 1700 this shift,
residual was tested and about 130 cc were retrieved from NG tube. Pt reports taking sips of about 100 cc of liquids and ice when tube was clamped. General surgery information technology specialist notified of 130 cc residual with recommendations to pull NG tube per order. NG
tube pulled, pt tolerated well. No increased gas, pain or discomfort in abdomen. No nausea or vomiting reported or noted. Plan of care ongoing.
[2024-09-23 18:43] LABS: Glucose - Point of Care 105 mg/dl (70-99)
[2024-09-23] MEDS: Parenteral Nutrition, Central 2000 IV (21:15)
[2024-09-23 23:27] VITALS: BP 144/76
[2024-09-24 00:10] LABS: Glucose - Point of Care 117 mg/dl (70-99)
[2024-09-24] MEDS: OFIRMEV 100 IV (00:50)
[2024-09-24] MEDS: MYLICON 80 MG PO ×2 (01:03→15:58)
[2024-09-24 04:29] VITALS: BMI 28.4
[2024-09-24 05:55] LABS: Glucose - Point of Care 101 mg/dl (70-99)
[2024-09-24 07:34] VITALS: BP 144/70
[2024-09-24] MEDS: NSS (PRESERVATIVE FREE) 10 ML IV (07:53)
[2024-09-24] MEDS: PROTONIX IV 40 MG IV (07:53)
--- NOTE | 2024-09-24 10:22 | W.PN.GS2 ---
Today's Communication / Plan
-
Clears as tolerated, TPN
Assessment / Plan
-
84 yo male with h/o open appendectomy [facility] presenting with septic shock and ARF secondary to salmonella gastroenteritis with increased comfort/bloating with attempted dietary advancement.
NGT placed to assist with symptom management, continues with distention.
Continues to pass flatus/loose stool. Pain improved.
CT with fluid filled small bowel loops/colon without clear transition point. PO contrast mostly in stomach on this image. Suspect ileus vs less likely partial SBO.
XR on 09/22 with continued distention
No leukocytosis, afebrile, VSS
--Trial of clears
--TPN as per nephrology
--Nutrition following
--No plans for surgery at this time
Medical management as per hospitalist team.
Subjective Data
-
Date of Service: September 24, 2024
Patient seen and examined at bedside. Denies n/v. Passing loose stools and some flatus. Discomfort from distention but not in pain. Tolerating sips of clears. Frustrated with LOS and continued symptoms.
Objective Data
-
Intake and Output
09/23/24 09/24/24 09/25/24
06:59 06:59 06:59
Intake Total 60 / 60 1370 / 1370
Output Total 2200 / 2200 4 / 4
Balance -2140 / -2140 1366 / 1366
Intake:
Oral fluids 60 / 60 240 / 240
IV fluids (Total) 200 / 200
IV piggybacks 100 / 100
TPN/PPN 830 / 830
Output:
Liquid stool amount / 4
Rectum / 4
Gastrointestinal tube output ( 1750 / 1750
Total)
[place] Sump 1750 / 1750
Urine, Voided 450 / 450
Other:
Number of approximated MODERATE 3
amounts of urine
Number of unmeasured liquid
stools
Rectum 1
Vital Signs
Temp Pulse Resp BP Pulse Ox
97.4 F 76 15 144/70 96
09/24/24 07:34 09/24/24 07:34 09/24/24 07:34 09/24/24 07:34 09/24/24 07:34
Calcium 8.4 mg/dl (8.4-10.2) 09/23/24 05:27
Phosphorus 3.6 mg/dl (2.5-4.5) 09/23/24 05:27
Magnesium 1.7 mg/dl (1.6-2.3) 09/23/24 05:27
Total Bilirubin Cancelled 09/22/24 10:42
AST Cancelled 09/22/24 10:42
ALT Cancelled 09/22/24 10:42
Alkaline Phosphatase Cancelled 09/22/24 10:42
Total Protein Cancelled 09/22/24 10:42
Albumin Cancelled 09/22/24 10:42
Physical Exam
-
NAD
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
--- NOTE | 2024-09-24 11:20 | CM ---
Patient seen at bedside on . Patient stated that he was feeling better and now advanced diet to clears this am. Patient stated that he does live alone and that he does not want VN at discharge. When asked about HD patient states that the HD is
only for short term and declined assistance to set up home HD in the community. Patient stated that he has a granddaughter who is a advanced nursing professor who he would want to set up privately any supports that he needs. Per Physician patient will be LT on
HD and she is to discuss with patient and family LT HD needs. CM will return to discuss community HD set up. CM will continue to follow for discharge planning needs.
Plan; home with HD; set up outpatient clinic and Vn pending patient needs
[2024-09-24 11:42] LABS: Hematocrit 41.9 % (39.0-52.0); Hemoglobin 14.5 g/dL (13.0-18.0); Mean Corp Hgb Conc. 34.6 g/dL (33.0-37.0); Mean Corpuscular Hgb 31.2 pg (27.0-31.0); Mean Corpuscular Volume 90.1 fL (80.0-94.0); Platelet Count 234 10^3/uL (130-400); Red Blood Cell Count 4.65 10^6/uL (4.70-6.10); Red Cell Dist. Width 13.7 % (11.5-14.5); White Blood Cell Count 8.5 10^3/uL (4.8-10.8)
[2024-09-24 12:04] LABS: Glucose - Point of Care 94 mg/dl (70-99)
[2024-09-24 12:05] LABS: Blood Urea Nitrogen 25 mg/dl (9-20); Calcium 9.3 mg/dl (8.4-10.2); Carbon Dioxide 18 mmol/L (22-30); Chloride 114 mmol/L (98-107); Estimated Creatinine Clearance 28 ml/min; Glucose 145 mg/dl (70-99); Magnesium 1.4 mg/dl (1.6-2.3); Phosphorus 3.1 mg/dl (2.5-4.5); Potassium 3.8 mmol/L (3.5-5.1); Sodium 142 mmol/L (135-145); eGFR 34.79
--- NOTE | 2024-09-24 12:14 | W.PN.NEPH.HD ---
Assessment
-
Patient seen on dialysis
Systolic blood pressure at 160
Will provide TPN
Progress Note - Hemodialysis
-
Date of Service: September 24, 2024
Duration: 30 minutes and 3 hours
Potassium Bath: 3
Calcium Bath: 2.5
Opti-Dialyzer: 160
Ultrafiltration: Other (Even)
Blood Flow: 400
Dialysate Flow: 600
Heparin: None (thrombocytopenia)
EPO: None
[2024-09-24] MEDS: DILAUDID 0.5 MG IV (12:16)
--- NOTE | 2024-09-24 13:32 | W.PN.ID1 ---
Date of Service
Date of Service: September 24, 2024
Today's Communication
Continue ceftriaxone.
Assessment / Plan
# Complicated Salmonella gastroenteritis with bacteremia
. Of note onset of diarrhea after eating chicken wings.
# Ileus vs partial SBO onset 09/20, on TPN
# Severe pre-renal HUNTER
. HD started 09/16
. improving
# thrombocytopenia resolved
# s/p Septic shock
- Stool cx: + salmonella
- Repeat blood cx's neg to date
- Contact isolation if incontinent of stool.
- Continue ceftriaxone 2g IV q24 (d#10)
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
Hypertension
HLD
Atrial fibrillation
CVA
Basal cell carcinoma
Left carotid endarterectomy
Appendectomy
Bilateral TKA
Chief Complaint
-: Bacteremia and Other (diarrhea)
Subjective / Review of Systems
Belly still bloated. Has liquid stool.
Vital Signs / Physical Exam
Vital Signs
Vital Signs
Temp Pulse Resp BP Pulse Ox
97.4 F 76 15 144/70 96
09/24/24 07:34 09/24/24 07:34 09/24/24 07:34 09/24/24 07:34 09/24/24 07:34
Physical Exam
Constitutional: Non-toxic
Eyes: Sclera Anicteric
Cardiovascular: Regular Rate and S1/S2
Pulmonary: Clear
Gastrointestinal: Soft, Tender (mild) and Distended; Negative Decreased Bowel Sounds
Extremities: Negative Edema
Neurological: AO x 3
Objective Data
Lab Data
Lab Results
09/24/24 11:24
09/24/24 11:24
Estimated Creat Clear 28 ml/min 09/24/24 11:24
Total Bilirubin Cancelled 09/22/24 10:42
AST Cancelled 09/22/24 10:42
ALT Cancelled 09/22/24 10:42
Alkaline Phosphatase Cancelled 09/22/24 10:42
Most recent labs reviewed.
Micro Results:
09/17/24 04:47 Blood Culture - Final
Blood/Venous No Growth - Final Report
09/16/24 10:46 Blood Culture - Final
Blood/Venous No Growth - Final Report
09/15/24 10:08 Blood Culture - Final
Blood/Venous Salmonella species
Gram Stain - Final
09/15/24 08:42 Blood Culture - Final
Blood/Venous Salmonella species
Gram Stain - Final
09/13/24 22:18 Miscellaneous Microbiology Test - Pending
Feces/Stool
09/13/24 22:18 Salmonella/Shigella Culture - Final
Feces/Stool Salmonella species
Campylobacter Culture - Final
No Campylobacter species isolated.
Shiga Toxin Test - Final
No E. coli Shiga Toxin 1 or 2 detected.
09/13/24 22:18 C. difficile GDH Antigen & Toxins - Final
Feces/Stool Negative for toxigenic C.difficile
- Final
Negative for Norovirus GI and GII.
Imaging:
09/21/2024 Abdominal flatplate: Numerous dilated loops of small bowel, similar to recent examination. Air is noted within the colon without significant dilatation. Findings most likely represent small bowel obstruction, most likely partial.
09/13/24 CT a/p: Fluid attenuation in the colon most in keeping with a diarrheal illness. No other acute inflammatory process in the abdomen or pelvis within the limitations of the lack of oral and intravenous contrast.
[2024-09-24] MEDS: TYLENOL 1000 MG PO (14:04)
[2024-09-24] MEDS: NOVOLOG FLEXPEN-LOW RESISTANCE SC ×3 (14:04→23:57)
--- NOTE | 2024-09-24 14:08 | CM ---
Addendum entered by Daniella Cleveland 09/24/24 16:36:
spoke with patient daughter and she is asking about HD with [facility]. CM will need to start referral to [facility].
Original Note:
CM spoke with patient daughter; who indicated that she understood patient would need HD in the community but she was unable to talk to CM as her daughter was participating in a graduation ceremony at this time. CM will talk to patient again about
options.
[2024-09-24] MEDS: MAGNESIUM SULFATE 50 IV (15:04)
[2024-09-24] MEDS: ROCEPHIN 2000 MG IV (15:04)
[2024-09-24] MEDS: STERILE WATER FOR INJECTION 20 ML IV (15:05)
[2024-09-24] MEDS: FLUSH (NSS) 1 FLUSH INTRACATH (15:07)
--- NOTE | 2024-09-24 15:28 | W.PN.HOSP.TC ---
Today's Communication/Plan
-
see bold
Assessment / Plan
Assessment / Plan
CT A/P: Fluid attenuation in the colon most in keeping with a diarrheal illness. No other acute inflammatory process in the abdomen or pelvis within the limitations of the lack of oral and intravenous contrast.
Septic shock due to acute enterocolitis with bacteremia:
-CT A/P above
-C. difficile/Norovirus NEG
-Status post vancomycin and cefepime on 09/15/2024
-Status post Levophed, out of the ICU 09/18
-Appreciate ID input, continue high-dose empiric Rocephin
Ileus versus less likely partial SBO
Worsening abdominal distention
- Abdominal x-ray shows possible ileus, cannot rule out obstruction
- 09/20 CT abdomen and pelvis with oral contrast, without IV contrast, shows ileus, enteritis, dilated small bowel, cannot rule out obstruction
- General Surgery following, continue n.p.o., IV fluids
- Patient currently having sips of clears for comfort, he has been counseled to avoid carbonated beverages and minimize clear liquids
- 6/8 NG tube removed
- Trial of clear liquids today, continue TPN as per nephrology, started on 09/22
Severe prerenal HUNTER:
Non-anion gap metabolic acidosis:
-Cr continued to worsen. Patient also had worsening anion gap metabolic acidosis despite bicarb gtt and no UOP.
-Appreciate rotary soil stabilizer operator input, HD started 09/15/24
-Continue dialysis as per nephrology, creatinine downtrending, hopeful for renal recovery
-Plan for discharge on outpatient dialysis, renal recovery to be monitored outpatient
-Home ACEi/Norvasc stopped
Thrombocytopenia
-HIT panel negative, suspect secondary to sepsis
-Resolved
Profound hypokalemia:
- Due to diarrhea, magnesium and phosphorus levels are normal
- Replete as needed
Paroxysmal atrial fibrillation:
-Appreciate cardiology input, Tikosyn stopped with HUNTER
Other problems:
Hypomagnesemia, resolved
NITZA s/p CEA
H/o CVA: hold ASA/statin
Essential hypertension: Home ACEi/Norvasc stopped
HLD: hold Zetia/statin
H/o Basal cell carcinoma
GERD: Cont PPI
DVT prophylaxis�SCDs secondary to recent thrombocytopenia
Full code
Updated daughter on phone 09/23
Total time spent to see the patient on the floor, examine the patient, review data and lab results, discuss treatment plan with patient, nursing staff around 43 minutes.
Physical exam
Gen: NAD, AAOx3.
Eyes: EOMI, PERRLA, no scleral icterus.
Neck: supple.
CV: remains RRR, +S1/S2, no m/r/g.
Resp: CTAB anteriorly, no rales, wheezes, or rhonchi.
Abd: Hypoactive bowel sounds noted, less distended
Skin: No rashes.
Neuro: CN 2-12 intact, non-focal.
Psych: Normal mood and affect.
Anticipated Discharge: > 48 hours
Subjective/Interval History
-
Date of Service: September 23, 2024
Patient complains of abdominal distention, and gas pain, 7 out of 10 in intensity. His NG tube was removed last night. Denies nausea, denies vomiting. Passing loose stools and some flatus. No fever.
Objective Data
-
Labs:
Laboratory Results
09/23/24
05:27
Sodium 142
Potassium 3.5
Chloride 112 H
Carbon Dioxide 23
BUN 27 H
Creatinine 2.1 H
Glucose 122 H
Calcium 8.4
Vital Signs:
Vital Signs
Temp Pulse Resp BP Pulse Ox
98 F 93 16 129/69 96
09/23/24 07:38 09/23/24 07:38 09/23/24 07:38 09/23/24 07:38 09/23/24 07:38
I&O
09/22/24 09/23/24 09/24/24
06:59 06:59 06:59
Intake Total 1560 / 1560 60 / 60
Output Total 950 / 950 2200 / 2200
Balance 610 / 610 -2140 / -2140
[2024-09-24 15:38] VITALS: BP 113/72
[2024-09-24 18:26] LABS: Glucose - Point of Care 133 mg/dl (70-99)
[2024-09-24] MEDS: Parenteral Nutrition, Central 2000 IV (21:05)
[2024-09-24 23:24] VITALS: BP 129/68
[2024-09-24 23:53] LABS: Glucose - Point of Care 119 mg/dl (70-99)
[2024-09-25 05:44] LABS: Glucose - Point of Care 131 mg/dl (70-99)
[2024-09-25] MEDS: NOVOLOG FLEXPEN-LOW RESISTANCE SC ×3 (05:48→17:50)
[2024-09-25 06:00] VITALS: BMI 28.4
[2024-09-25 07:00] VITALS: BP 141/68
[2024-09-25] MEDS: PROTONIX IV 40 MG IV (07:46)
[2024-09-25] MEDS: NSS (PRESERVATIVE FREE) 10 ML IV (07:46)
[2024-09-25 08:28] LABS: Blood Urea Nitrogen 21 mg/dl (9-20); Calcium 9.3 mg/dl (8.4-10.2); Carbon Dioxide 24 mmol/L (22-30); Chloride 106 mmol/L (98-107); Estimated Creatinine Clearance 41 ml/min; Glucose 107 mg/dl (70-99); Magnesium 1.6 mg/dl (1.6-2.3); Phosphorus 2.6 mg/dl (2.5-4.5); Potassium 3.4 mmol/L (3.5-5.1); Sodium 139 mmol/L (135-145); eGFR 54.85
--- NOTE | 2024-09-25 08:48 | W.PN.HOSP.TC ---
Today's Communication/Plan
-
IV Ceftriaxone
clears, TPN
HD per renal
appreciate consultants
Assessment / Plan
Assessment / Plan
CT A/P: Fluid attenuation in the colon most in keeping with a diarrheal illness. No other acute inflammatory process in the abdomen or pelvis within the limitations of the lack of oral and intravenous contrast.
Septic shock due to acute enterocolitis with bacteremia:
-CT A/P above
-C. difficile/Norovirus NEG
-Status post vancomycin and cefepime on 09/15/2024
-Status post Levophed, out of the ICU 09/18
-Appreciate ID input, continue IV Ceftriaxone 2G q 24 hours
Ileus versus less likely partial SBO
Worsening abdominal distention
- Abdominal x-ray shows possible ileus, cannot rule out obstruction
- 09/20 CT abdomen and pelvis with oral contrast, without IV contrast, shows ileus, enteritis, dilated small bowel, cannot rule out obstruction
- General Surgery following, continue n.p.o., IV fluids
- Patient currently having sips of clears for comfort, he has been counseled to avoid carbonated beverages and minimize clear liquids
- 6/8 NG tube removed
-continue CLD
-continue TPN
Severe prerenal HUNTER:
Non-anion gap metabolic acidosis:
-Cr continued to worsen. Patient also had worsening anion gap metabolic acidosis despite bicarb gtt and no UOP.
-Appreciate user support specialist input, HD started 09/15/24
-Continue dialysis as per nephrology, creatinine downtrending, hopeful for renal recovery
-Plan for discharge on outpatient dialysis, renal recovery to be monitored outpatient
-Home ACEi/Norvasc stopped
Thrombocytopenia
-HIT panel negative, suspect secondary to sepsis
-Resolved
Profound hypokalemia:
- Due to diarrhea, magnesium and phosphorus levels are normal
- Replete as needed
Paroxysmal atrial fibrillation:
-Appreciate cardiology input, Tikosyn stopped with HUNTER
Other problems:
Hypomagnesemia, resolved
NITZA s/p CEA
H/o CVA: hold ASA/statin
Essential hypertension: Home ACEi/Norvasc stopped
HLD: hold Zetia/statin
H/o Basal cell carcinoma
GERD: Cont PPI
DVT prophylaxis�SCDs secondary to recent thrombocytopenia
Full code
Updated daughter on phone 09/23
Total time spent to see the patient on the floor, examine the patient, review data and lab results, discuss treatment plan with patient, nursing staff around 43 minutes.
Physical exam
Gen: NAD, AAOx3.
Eyes: EOMI, PERRLA, no scleral icterus.
Neck: supple.
CV: remains RRR, +S1/S2, no m/r/g.
Resp: CTAB anteriorly, no rales, wheezes, or rhonchi.
Abd: Hypoactive bowel sounds noted, less distended
Skin: No rashes.
Neuro: CN 2-12 intact, non-focal.
Psych: Normal mood and affect.
Anticipated Discharge: > 48 hours
Subjective/Interval History
-
Date of Service: September 25, 2024
having loose BM this morning
abdomen remains bloated but improved
no nausea
tolerating clears
Objective Data
-
Labs:
Laboratory Results
09/25/24
07:37
Sodium 139
Potassium 3.4 L
Chloride 106
Carbon Dioxide 24
BUN 21 H
Creatinine 1.3
Glucose 107 H
Calcium 9.3
Vital Signs:
Vital Signs
Temp Pulse Resp BP Pulse Ox
96.5 F L 74 16 141/68 98
09/25/24 08:09 09/25/24 07:00 09/25/24 07:00 09/25/24 07:00 09/25/24 07:00
I&O
09/24/24 09/25/24 09/26/24
06:59 06:59 06:59
Intake Total 1370 / 1370 1286 / 1286
Output Total
Balance 1366 / 1366 1286 / 1286
Review of Systems
-
History Source: Patient
All other systems: Reviewed and negative
Data Reviewed
-
Diagnostic Radiology: Report Reviewed by me
Labs: Labs Reviewed by me
--- NOTE | 2024-09-25 09:00 | W.PN.GS2 ---
Today's Communication / Plan
-
-- X-ray abdomen
-- Clears for now
-- Correct lytes, minimize narcotics, ambulate
Assessment / Plan
-
84 yo male with h/o open appendectomy remotely presenting with septic shock and ARF secondary to salmonella gastroenteritis with increased comfort/bloating with attempted dietary advancement.
CT A/P (09/20): fluid filled small bowel loops/colon without clear transition point. PO contrast mostly in stomach on this image. Suspect ileus vs less likely partial SBO.
X-ray Abd (09/22): small and large bowel gaseous distension, no air within rectum
AVSS
BMO today with hypokalemia and improved HUNTER
Persistent though improved ileus. Continues to pass flatus/loose stool and pain improved, though continued abdominal distension. Plan for X-ray today to aid in decision on dietary advancement (maintain clears vs. fulls)
-- X-ray abdomen
-- Clears for now
-- TPN as per Nephrology, replace K
-- No plans for surgery at this time
-- Correct lytes, minimize narcotics, ambulate
Medical management as per Hospitalist team.
Subjective Data
-
Date of Service: September 25, 2024
Intermittent issues with worsening abdominal bloating. No nausea or vomiting. Reports continued loose stools and flatus. No fevers or chills. Minimal ambulation.
Objective Data
-
Intake and Output
09/24/24 09/25/24 09/26/24
06:59 06:59 06:59
Intake Total 1370 / 1370 1286 / 1286
Output Total / 4
Balance 1366 / 1366 1286 / 1286
Intake:
Oral fluids 240 / 240 240 / 240
IV fluids (Total) 200 / 200 996 / 996
IV piggybacks 100 / 100 50 / 50
TPN/PPN 830 / 830
Output:
Liquid stool amount 4 / 4
Rectum 4 / 4
Other:
Number of approximated MODERATE 3 5
amounts of urine
Number of approximated LARGE 1
amounts of urine
How many times incontinent 1
SMALL amount urine
Number of unmeasured liquid
stools
Rectum 3
Vital Signs
Temp Pulse Resp BP Pulse Ox
96.5 F L 74 16 141/68 98
09/25/24 08:09 09/25/24 07:00 09/25/24 07:00 09/25/24 07:00 09/25/24 07:00
Lab Results
09/24/24 11:24
09/25/24 07:37
Calcium 9.3 mg/dl (8.4-10.2) 09/25/24 07:37
Phosphorus 2.6 mg/dl (2.5-4.5) 09/25/24 07:37
Magnesium 1.6 mg/dl (1.6-2.3) 09/25/24 07:37
Total Bilirubin Cancelled 09/22/24 10:42
AST Cancelled 09/22/24 10:42
ALT Cancelled 09/22/24 10:42
Alkaline Phosphatase Cancelled 09/22/24 10:42
Total Protein Cancelled 09/22/24 10:42
Albumin Cancelled 09/22/24 10:42
Physical Exam
-
Gen: NAD
Abd: soft, NT, moderate/severe distension, tympanitic, non-peritoneal, prior RLQ incision well healed
Patient has a sears catheter: No
Patient has a central line: Yes
[2024-09-25 11:29] LABS: Glucose - Point of Care 106 mg/dl (70-99)
[2024-09-25] MEDS: ROCEPHIN 2000 MG IV (11:34)
[2024-09-25] MEDS: STERILE WATER FOR INJECTION 20 ML IV (11:35)
[2024-09-25 13:12] VITALS: PULSE 90; O2SAT 96
[2024-09-25 13:35] VITALS: PULSE 90; O2SAT 96
[2024-09-25 15:21] VITALS: BP 110/71
--- NOTE | 2024-09-25 15:43 | W.PN.NEPH.PH ---
Today's Communication / Plan
-
Dialysis tomorrow but follow-up creatinine. pre HD
TPN provide
Assessment/Plan
-
84-year-old male past medical history of carotid stenosis, prior CVA, hypertension, hyperlipidemia, basal cell carcinoma, atrial fibrillation, GERD, presenting with predominantly diarrhea and some vomiting starting 2 days ago.
Renal consultation for acute kidney injury creatinine of 4 on admission increased to 5.3
Hypotensive on admission with some improvement with IV fluids
Impression.
Acute kidney injury creatinine 5.3, but normal baseline
Diarrhea enteritis
hypokalemia secondary to diarrhea.
Atrial fibrillation.
thrombocytopenia
Plan.
TPN ordered, lytes balanced
follow BMP
continue abx for salmonella
holding heparin given low plts previously
Diet advancing
Next HD tomorrowk, but will check pre-HD creatinine is he may be improving unfortunately urine output is not recorded
follow Cr trend, he may be recovering
-
-
Date of Service: September 25, 2024
CC / HPI / ROS
-
Chief Complaint:
Diarrhea
History of Present Illness:
on abx for salmonella enteritis
BP stable
Cr 1.[address] for ileus
TPN not created yesterday-system issues
Review of Systems:
no CP/SOB
Subjectively nonoliguric
Labs
-
Labs:
WBC 8.5 10^3/uL (4.8-10.8) 09/24/24 11:24
RBC 4.65 10^6/uL (4.70-6.10) L 09/24/24 11:24
Hgb 14.5 g/dL (13.0-18.0) 09/24/24 11:24
Hct 41.9 % (39.0-52.0) 09/24/24 11:24
Plt Count 234 10^3/uL (130-400) 09/24/24 11:24
Sodium 139 mmol/L (135-145) 09/25/24 07:37
Potassium 3.4 mmol/L (3.5-5.1) L 09/25/24 07:37
Chloride 106 mmol/L (98-107) 09/25/24 07:37
Carbon Dioxide 24 mmol/L (22-30) 09/25/24 07:37
BUN 21 mg/dl (9-20) H 09/25/24 07:37
Creatinine 1.3 mg/dL (0.7-1.3) 09/25/24 07:37
eGFR 54.85 09/25/24 07:37
Glucose 107 mg/dl (70-99) H 09/25/24 07:37
Calcium 9.3 mg/dl (8.4-10.2) 09/25/24 07:37
Phosphorus 2.6 mg/dl (2.5-4.5) 09/25/24 07:37
Albumin Cancelled 09/22/24 10:42
Physical Exam
-
Vital Signs:
Vital Signs
Temp Pulse Resp BP Pulse Ox
97.4 F 101 17 110/71 100
09/25/24 15:21 09/25/24 15:21 09/25/24 15:21 09/25/24 15:21 09/25/24 15:21
Cardiovascular:: Regular rate and rhythm
Respiratory:: Bilateral: Coarse
Lung Excursion:: Normal
Abdomen:: Nontender and Soft
Bowel Sounds:: Normal
Extremity Edema:: None: Bilateral:
Mina Catheter: No
--- NOTE | 2024-09-25 16:33 | W.PN.ID1 ---
Date of Service
Date of Service: September 25, 2024
Today's Communication
Continue ceftriaxone.
Assessment / Plan
# Complicated Salmonella gastroenteritis with bacteremia
. Of note onset of diarrhea after eating chicken wings.
# Ileus vs partial SBO onset 09/20, on TPN
# Severe pre-renal HUNTER
. HD started 09/16
. improving/resolving
# thrombocytopenia resolved
# s/p Septic shock
- Repeat blood cx's neg to date
- Contact isolation if incontinent of stool.
- Continue ceftriaxone 2g IV q24 (d#11)
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
Hypertension
HLD
Atrial fibrillation
CVA
Basal cell carcinoma
Left carotid endarterectomy
Appendectomy
Bilateral TKA
Chief Complaint
-: Bacteremia and Other (diarrhea)
Subjective / Review of Systems
Abdomen still big.
Vital Signs / Physical Exam
Vital Signs
Vital Signs
Temp Pulse Resp BP Pulse Ox
97.4 F 101 17 110/71 100
09/25/24 15:21 09/25/24 15:21 09/25/24 15:21 09/25/24 15:21 09/25/24 15:21
Physical Exam
Constitutional: Non-toxic
Eyes: Sclera Anicteric
Cardiovascular: Regular Rate and S1/S2
Pulmonary: Clear
Gastrointestinal: Soft, Tender (mild), Distended and Decreased Bowel Sounds
Extremities: Negative Edema
Neurological: AO x 3
Objective Data
Lab Data
Lab Results
09/24/24 11:24
09/25/24 07:37
Estimated Creat Clear 41 ml/min 09/25/24 07:37
Total Bilirubin Cancelled 09/22/24 10:42
AST Cancelled 09/22/24 10:42
ALT Cancelled 09/22/24 10:42
Alkaline Phosphatase Cancelled 09/22/24 10:42
Most recent labs reviewed.
Micro Results:
09/17/24 04:47 Blood Culture - Final
Blood/Venous No Growth - Final Report
09/16/24 10:46 Blood Culture - Final
Blood/Venous No Growth - Final Report
09/15/24 10:08 Blood Culture - Final
Blood/Venous Salmonella species
Gram Stain - Final
09/15/24 08:42 Blood Culture - Final
Blood/Venous Salmonella species
Gram Stain - Final
09/13/24 22:18 Miscellaneous Microbiology Test - Pending
Feces/Stool
09/13/24 22:18 Salmonella/Shigella Culture - Final
Feces/Stool Salmonella species
Campylobacter Culture - Final
No Campylobacter species isolated.
Shiga Toxin Test - Final
No E. coli Shiga Toxin 1 or 2 detected.
09/13/24 22:18 C. difficile GDH Antigen & Toxins - Final
Feces/Stool Negative for toxigenic C.difficile
- Final
Negative for Norovirus GI and GII.
Imaging:
09/21/2024 Abdominal flatplate: Numerous dilated loops of small bowel, similar to recent examination. Air is noted within the colon without significant dilatation. Findings most likely represent small bowel obstruction, most likely partial.
09/13/24 CT a/p: Fluid attenuation in the colon most in keeping with a diarrheal illness. No other acute inflammatory process in the abdomen or pelvis within the limitations of the lack of oral and intravenous contrast.
[2024-09-25 17:49] LABS: Glucose - Point of Care 107 mg/dl (70-99)
[2024-09-25] MEDS: Parenteral Nutrition, Central 2000 IV (21:50)
[2024-09-25 23:23] VITALS: BP 104/59
[2024-09-25 23:44] LABS: Glucose - Point of Care 95 mg/dl (70-99)
[2024-09-26] MEDS: NOVOLOG FLEXPEN-LOW RESISTANCE SC ×3 (00:10→17:53)
--- NOTE | 2024-09-26 01:00 | PTCARENOTE ---
Patient complaining of frequent watery green stools with urgency and at times unable to make it to the commode. Patient has had 9 bowel movements since the start of this RN's shift. REDD Lepe notified. Rectal trumpet placed by this RN,
draining liquid green stool. Will continue to monitor.
[2024-09-26 05:29] VITALS: BMI 26.9
[2024-09-26 05:36] LABS: Glucose - Point of Care 260 mg/dl (70-99)
[2024-09-26] MEDS: NOVOLOG FLEXPEN-LOW RESISTANCE 3 UNITS SC (06:33)
[2024-09-26 07:44] VITALS: BP 117/63
[2024-09-26 07:54] LABS: Hematocrit 41.5 % (39.0-52.0); Hemoglobin 14.5 g/dL (13.0-18.0); Mean Corp Hgb Conc. 34.9 g/dL (33.0-37.0); Mean Corpuscular Hgb 30.9 pg (27.0-31.0); Mean Corpuscular Volume 88.5 fL (80.0-94.0); Mean Platelet Volume 9.9 fL (7.4-10.4); Platelet Count 186 10^3/uL (130-400); Red Blood Cell Count 4.69 10^6/uL (4.70-6.10); Red Cell Dist. Width 13.8 % (11.5-14.5); White Blood Cell Count 7.6 10^3/uL (4.8-10.8)
[2024-09-26 08:23] LABS: Blood Urea Nitrogen 34 mg/dl (9-20); Carbon Dioxide 16 mmol/L (22-30); Chloride 105 mmol/L (98-107); Estimated Creatinine Clearance 35 ml/min; Glucose 101 mg/dl (70-99); Magnesium 1.8 mg/dl (1.6-2.3); Phosphorus 3.2 mg/dl (2.5-4.5); Potassium 4.1 mmol/L (3.5-5.1); Sodium 135 mmol/L (135-145); eGFR 46.19
[2024-09-26] MEDS: NSS (PRESERVATIVE FREE) 10 ML IV (08:56)
[2024-09-26] MEDS: PROTONIX IV 40 MG IV (08:56)
--- NOTE | 2024-09-26 09:28 | W.PN.HOSP.TC ---
Today's Communication/Plan
-
see plan
Assessment / Plan
Assessment / Plan
CT A/P: Fluid attenuation in the colon most in keeping with a diarrheal illness. No other acute inflammatory process in the abdomen or pelvis within the limitations of the lack of oral and intravenous contrast.
Septic shock due to acute enterocolitis with bacteremia:
-CT A/P above
-C. difficile/Norovirus NEG
-Status post vancomycin and cefepime, -Appreciate ID input, continue IV Ceftriaxone 2G q 24 hours
-Status post Levophed, out of the ICU 09/18
Ileus versus less likely partial SBO
Worsening abdominal distention
- Abdominal x-ray shows possible ileus, cannot rule out obstruction
- 09/20 CT abdomen and pelvis with oral contrast, without IV contrast, shows ileus, enteritis, dilated small bowel, cannot rule out obstruction
- General Surgery following
- 09/23 NG tube removed
- continue CLD - tolerating
- continue TPN
-increased BM overnight
Severe prerenal HUNTER:
Non-anion gap metabolic acidosis:
-Appreciate addressing machine operator input, HD started 09/15/24
-Continue dialysis as per nephrology, creatinine downtrending, hopeful for renal recovery
-Plan for discharge on outpatient dialysis, renal recovery to be monitored outpatient
-Home ACEi/Norvasc stopped
Thrombocytopenia
-HIT panel negative, suspect secondary to sepsis
-resume asa and hep subQ
Profound hypokalemia:
- Due to diarrhea, magnesium and phosphorus levels are normal
- Replete as needed
Paroxysmal atrial fibrillation:
-Appreciate cardiology input, Tikosyn stopped with HUNTER
Other problems:
Hypomagnesemia, resolved
NITZA s/p CEA
H/o CVA: - resume aspirin
Essential hypertension: Home ACEi/Norvasc stopped
HLD: hold Zetia/statin
H/o Basal cell carcinoma
GERD: Cont PPI
DVT prophylaxis� hep subQ
Full code
Updated daughter on phone 09/23
Total time spent to see the patient on the floor, examine the patient, review data and lab results, discuss treatment plan with patient, nursing staff around 43 minutes.
Physical exam
Gen: NAD, AAOx3.
Eyes: EOMI, PERRLA, no scleral icterus.
Neck: supple.
CV: remains RRR, +S1/S2, no m/r/g.
Resp: CTAB anteriorly, no rales, wheezes, or rhonchi.
Abd: Hypoactive bowel sounds noted, less distended
Skin: No rashes.
Neuro: CN 2-12 intact, non-focal.
Psych: Normal mood and affect.
Anticipated Discharge: > 48 hours
Subjective/Interval History
-
Date of Service: September 26, 2024
increased BM overnight
urinating with BM
Objective Data
-
Labs:
Laboratory Results
09/26/24 09/26/24
07:00 07:08
WBC 7.6
Hgb 14.5
Hct 41.5
Plt Count 186 D
Sodium Cancelled 135
Potassium Cancelled 4.1
Chloride Cancelled 105
Carbon Dioxide Cancelled 16 L
BUN Cancelled 34 H
Creatinine Cancelled 1.5 H
Glucose Cancelled 101 H
Calcium Cancelled 10.0
Vital Signs:
Vital Signs
Temp Pulse Resp BP Pulse Ox
97.7 F 93 18 117/63 96
09/26/24 07:44 09/26/24 07:44 09/26/24 07:44 09/26/24 07:44 09/26/24 07:44
I&O
09/25/24 09/26/24 09/27/24
06:59 06:59 06:59
Intake Total 1286 / 1286 1716 / 1716
Output Total 350 / 350
Balance 1286 / 1286 1366 / 1366
Review of Systems
-
History Source: Patient
All other systems: Reviewed and negative
Data Reviewed
-
Diagnostic Radiology: Report Reviewed by me
Labs: Labs Reviewed by me
--- NOTE | 2024-09-26 09:56 | W.PN.GS2 ---
Today's Communication / Plan
-
ADAT
s/o
Assessment / Plan
-
84 yo male with h/o open appendectomy remotely presenting with septic shock and ARF secondary to salmonella gastroenteritis with increased comfort/bloating with attempted dietary advancement.
CT A/P (09/20): fluid filled small bowel loops/colon without clear transition point. PO contrast mostly in stomach on this image. Suspect ileus vs less likely partial SBO.
X-ray Abd (09/22): small and large bowel gaseous distension, no air within rectum
AVSS
BMO today with hypokalemia and improved HUNTER
Persistent though improved ileus. Continues to pass flatus/loose stool and pain improved, with improved abdominal distension.
-- ADAT to LRD, would stay on fulls until distention improves further
-- TPN as per Nephrology, may not need any longer if taking enough PO
-- GS will s/o pls call with questions
Medical management as per Hospitalist team.
Subjective Data
-
Date of Service: September 26, 2024
Lots of liwquid stool and gas, denies n/v, feels distention is improving
Objective Data
-
Intake and Output
09/25/24 09/26/24 09/27/24
06:59 06:59 06:59
Intake Total 1286 / 1286 1716 / 1716
Output Total 350 / 350
Balance 1286 / 1286 1366 / 1366
Intake:
Oral fluids 240 / 240 720 / 720
IV fluids (Total) 996 / 996 996 / 996
IV piggybacks 50 / 50 0 / 0
Output:
Liquid stool amount 350 / 350
Rectum 350 / 350
Other:
Number of approximated SMALL 1
amounts of urine
Number of approximated MODERATE 5
amounts of urine
Number of approximated LARGE 1
amounts of urine
How many times incontinent 1
SMALL amount urine
Number of unmeasured liquid
stools
Rectum 3 4
Vital Signs
Temp Pulse Resp BP Pulse Ox
97.7 F 93 18 117/63 96
09/26/24 07:44 09/26/24 07:44 09/26/24 07:44 09/26/24 07:44 09/26/24 07:44
Lab Results
09/26/24 07:08
09/26/24 07:08
Calcium 10.0 mg/dl (8.4-10.2) 09/26/24 07:08
Phosphorus 3.2 mg/dl (2.5-4.5) 09/26/24 07:08
Magnesium 1.8 mg/dl (1.6-2.3) 09/26/24 07:08
Total Bilirubin Cancelled 09/22/24 10:42
AST Cancelled 09/22/24 10:42
ALT Cancelled 09/22/24 10:42
Alkaline Phosphatase Cancelled 09/22/24 10:42
Total Protein Cancelled 09/22/24 10:42
Albumin Cancelled 09/22/24 10:42
Physical Exam
-
Gen: NAD
Abd: soft, minimal ttp, mod distention (improved)
Patient has a sears catheter: No
Patient has a central line: Yes
[2024-09-26] MEDS: HEPARIN 5000 UNITS SC ×2 (10:16→20:25)
--- NOTE | 2024-09-26 10:32 | W.PN.NEPH.PH ---
Today's Communication / Plan
-
hold HD today
Assessment/Plan
-
84-year-old male past medical history of carotid stenosis, prior CVA, hypertension, hyperlipidemia, basal cell carcinoma, atrial fibrillation, GERD, presenting with predominantly diarrhea and some vomiting starting 2 days ago.
Renal consultation for acute kidney injury creatinine of 4 on admission increased to 5.3
Hypotensive on admission with some improvement with IV fluids
Impression.
Acute kidney injury creatinine 5.3, but normal baseline
Diarrhea enteritis
hypokalemia secondary to diarrhea.
Atrial fibrillation.
thrombocytopenia
Plan.
TPN ordered, lytes balanced
follow BMP
continue abx for salmonella
Continue
Diet per surgery
Will hold dialysis today and follow creatinine there is clearly some recovery
-
-
Date of Service: September 26, 2024
CC / HPI / ROS
-
Chief Complaint:
Diarrhea
History of Present Illness:
on abx for salmonella enteritis
BP stable
Cr 1.5
NGT out, on clear liquids
TPN running
last HD 09/24
Review of Systems:
no CP/SOB
nonoliguric
diarrhea still, less today
Labs
-
Labs:
WBC 7.6 10^3/uL (4.8-10.8) 09/26/24 07:08
RBC 4.69 10^6/uL (4.70-6.10) L 09/26/24 07:08
Hgb 14.5 g/dL (13.0-18.0) 09/26/24 07:08
Hct 41.5 % (39.0-52.0) 09/26/24 07:08
Plt Count 186 10^3/uL (130-400) D 09/26/24 07:08
Sodium 135 mmol/L (135-145) 09/26/24 07:08
Potassium 4.1 mmol/L (3.5-5.1) 09/26/24 07:08
Chloride 105 mmol/L (98-107) 09/26/24 07:08
Carbon Dioxide 16 mmol/L (22-30) L 09/26/24 07:08
BUN 34 mg/dl (9-20) H 09/26/24 07:08
Creatinine 1.5 mg/dL (0.7-1.3) H 09/26/24 07:08
eGFR 46.19 09/26/24 07:08
Glucose 101 mg/dl (70-99) H 09/26/24 07:08
Calcium 10.0 mg/dl (8.4-10.2) 09/26/24 07:08
Phosphorus 3.2 mg/dl (2.5-4.5) 09/26/24 07:08
Albumin Cancelled 09/22/24 10:42
Physical Exam
-
Vital Signs:
Vital Signs
Temp Pulse Resp BP Pulse Ox
97.7 F 93 18 117/63 96
09/26/24 07:44 09/26/24 07:44 09/26/24 07:44 09/26/24 07:44 09/26/24 07:44
Cardiovascular:: Regular rate and rhythm
Respiratory:: Bilateral: Coarse
Lung Excursion:: Normal
Abdomen:: Nontender and Soft
Bowel Sounds:: Normal
Extremity Edema:: None: Bilateral:
[2024-09-26] MEDS: ROCEPHIN 2000 MG IV (11:21)
[2024-09-26] MEDS: STERILE WATER FOR INJECTION 20 ML IV (11:21)
[2024-09-26 12:00] LABS: Glucose - Point of Care 118 mg/dl (70-99)
[2024-09-26] MEDS: LOW STRENGTH ASPIRIN 81 MG PO (12:45)
[2024-09-26 15:31] VITALS: BP 112/67
--- NOTE | 2024-09-26 16:28 | W.PN.ID1 ---
Date of Service
Date of Service: September 26, 2024
Today's Communication
- Continue ceftriaxone 2g IV q24 (d#)
Assessment / Plan
# Complicated Salmonella gastroenteritis with bacteremia
. Of note onset of diarrhea after eating chicken wings.
# Ileus vs partial SBO onset 09/20, on TPN
# Severe pre-renal HUNTER
. resolving, HD now on hold.
# s/p Septic shock
- Repeat blood cx's neg to date
- Contact isolation if incontinent of stool.
- Continue ceftriaxone 2g IV q24 (d#)
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
Hypertension
HLD
Atrial fibrillation
CVA
Basal cell carcinoma
Left carotid endarterectomy
Appendectomy
Bilateral TKA
Chief Complaint
-: Bacteremia and Other (diarrhea)
Subjective / Review of Systems
[facility] abd bloating after sips of water.
Vital Signs / Physical Exam
Vital Signs
Vital Signs
Temp Pulse Resp BP Pulse Ox
97.7 F 107 16 112/67 94
09/26/24 15:31 09/26/24 15:31 09/26/24 15:31 09/26/24 15:31 09/26/24 15:31
Physical Exam
Constitutional: Comfortable
Cardiovascular: Regular Rate and S1/S2
Pulmonary: Clear
Gastrointestinal: Soft, Non Tender, Distended, Decreased Bowel Sounds and Other (FMS: liquid stool)
Extremities: Negative Edema
Neurological: AO x 3
Objective Data
Lab Data
Lab Results
09/26/24 07:08
09/26/24 07:08
Estimated Creat Clear 35 ml/min 09/26/24 07:08
Total Bilirubin Cancelled 09/22/24 10:42
AST Cancelled 09/22/24 10:42
ALT Cancelled 09/22/24 10:42
Alkaline Phosphatase Cancelled 09/22/24 10:42
Most recent labs reviewed.
Micro Results:
09/26/24 04:36 C. difficile GDH Antigen & Toxins - Final
Feces/Stool Negative for toxigenic C.difficile
09/17/24 04:47 Blood Culture - Final
Blood/Venous No Growth - Final Report
09/16/24 10:46 Blood Culture - Final
Blood/Venous No Growth - Final Report
09/15/24 10:08 Blood Culture - Final
Blood/Venous Salmonella species
Gram Stain - Final
09/15/24 08:42 Blood Culture - Final
Blood/Venous Salmonella species
Gram Stain - Final
09/13/24 22:18 Miscellaneous Microbiology Test - Pending
Feces/Stool
09/13/24 22:18 Salmonella/Shigella Culture - Final
Feces/Stool Salmonella species
Campylobacter Culture - Final
No Campylobacter species isolated.
Shiga Toxin Test - Final
No E. coli Shiga Toxin 1 or 2 detected.
09/13/24 22:18 C. difficile GDH Antigen & Toxins - Final
Feces/Stool Negative for toxigenic C.difficile
- Final
Negative for Norovirus GI and GII.
Imaging:
09/21/2024 Abdominal flatplate: Numerous dilated loops of small bowel, similar to recent examination. Air is noted within the colon without significant dilatation. Findings most likely represent small bowel obstruction, most likely partial.
09/13/24 CT a/p: Fluid attenuation in the colon most in keeping with a diarrheal illness. No other acute inflammatory process in the abdomen or pelvis within the limitations of the lack of oral and intravenous contrast.
[2024-09-26 17:51] LABS: Glucose - Point of Care 112 mg/dl (70-99)
[2024-09-26] MEDS: MYLICON 80 MG PO (20:55)
[2024-09-26] MEDS: Parenteral Nutrition, Central 2000 IV (21:09)
[2024-09-26 23:29] VITALS: BP 104/64
[2024-09-27 00:09] LABS: Glucose - Point of Care 139 mg/dl (70-99)
[2024-09-27] MEDS: NOVOLOG FLEXPEN-LOW RESISTANCE SC ×2 (00:16→18:26)
[2024-09-27] MEDS: TYLENOL 1000 MG PO ×2 (02:47→22:05)
[2024-09-27 05:52] LABS: Glucose - Point of Care 174 mg/dl (70-99)
[2024-09-27 06:00] VITALS: BMI 26.4
[2024-09-27] MEDS: NOVOLOG FLEXPEN-LOW RESISTANCE 1 UNITS SC ×2 (06:13→12:12)
[2024-09-27 06:19] LABS: Hematocrit 42.7 % (39.0-52.0); Hemoglobin 15.3 g/dL (13.0-18.0); Mean Corp Hgb Conc. 35.8 g/dL (33.0-37.0); Mean Corpuscular Hgb 31.1 pg (27.0-31.0); Mean Corpuscular Volume 86.8 fL (80.0-94.0); Mean Platelet Volume 10.9 fL (7.4-10.4); Platelet Count 190 10^3/uL (130-400); Red Blood Cell Count 4.92 10^6/uL (4.70-6.10); Red Cell Dist. Width 13.5 % (11.5-14.5); White Blood Cell Count 6.5 10^3/uL (4.8-10.8)
[2024-09-27 06:33] LABS: Blood Urea Nitrogen 46 mg/dl (9-20); Calcium 10.9 mg/dl (8.4-10.2); Carbon Dioxide 16 mmol/L (22-30); Chloride 104 mmol/L (98-107); Estimated Creatinine Clearance 31 ml/min; Glucose 139 mg/dl (70-99); Magnesium 1.9 mg/dl (1.6-2.3); Phosphorus 3.1 mg/dl (2.5-4.5); Potassium 3.8 mmol/L (3.5-5.1); Sodium 134 mmol/L (135-145); eGFR 39.75
[2024-09-27 07:00] VITALS: BP 106/62
[2024-09-27] MEDS: NSS (PRESERVATIVE FREE) 10 ML IV (08:20)
[2024-09-27] MEDS: HEPARIN SC ×2 (08:20→21:34)
[2024-09-27] MEDS: LOW STRENGTH ASPIRIN 81 MG PO (08:20)
[2024-09-27] MEDS: PROTONIX IV 40 MG IV (08:20)
--- NOTE | 2024-09-27 10:12 | W.PN.HOSP.TC ---
Today's Communication/Plan
-
IV Ceftriaxone
continue clears today (patient reported distention post clears yesterday)
appreciate consultants
Assessment / Plan
Assessment / Plan
CT A/P: Fluid attenuation in the colon most in keeping with a diarrheal illness. No other acute inflammatory process in the abdomen or pelvis within the limitations of the lack of oral and intravenous contrast.
Septic shock due to acute enterocolitis with bacteremia - Salmonella
-CT A/P above
-Status post vancomycin and cefepime, -Appreciate ID input, continue IV Ceftriaxone 2G q 24 hours (day )
-Status post Levophed, out of the ICU 09/18
Ileus versus less likely partial SBO
Worsening abdominal distention
- Abdominal x-ray shows possible ileus, cannot rule out obstruction
- 09/20 CT abdomen and pelvis with oral contrast, without IV contrast, shows ileus, enteritis, dilated small bowel, cannot rule out obstruction
- appreciate GS
- 09/23 NG tube removed
- continue CLD - tolerating
- continue TPN
-increased BM overnight 09/25-09/26; now rectal trumpet in place. patient less distended
Severe prerenal HUNTER:
Non-anion gap metabolic acidosis:
Acute Renal Failure
-Appreciate curtain cutter input, HD started 09/15/24
-Continue dialysis as per nephrology, creatinine rising at slower rate/ increased urinary output, hopeful for renal recovery
-Home ACEi/Norvasc stopped
Thrombocytopenia
-HIT panel negative, suspect secondary to sepsis
-resume asa and hep subQ
Profound hypokalemia:
- Due to diarrhea, magnesium and phosphorus levels are normal
- Replete as needed
Paroxysmal atrial fibrillation:
-Appreciate cardiology input, Tikosyn stopped with HUNTER
Other problems:
Hypomagnesemia, resolved
NITZA s/p CEA
H/o CVA: - resume aspirin
Essential hypertension: Home ACEi/Norvasc stopped
HLD: hold Zetia/statin
H/o Basal cell carcinoma
GERD: Cont PPI
DVT prophylaxis� hep subQ
Full code
Updated daughter on phone 09/23
Total time spent to see the patient on the floor, examine the patient, review data and lab results, discuss treatment plan with patient, nursing staff around 43 minutes.
Physical exam
Gen: NAD, AAOx3.
Eyes: EOMI, PERRLA, no scleral icterus.
Neck: supple.
CV: remains RRR, +S1/S2, no m/r/g.
Resp: CTAB anteriorly, no rales, wheezes, or rhonchi.
Abd: Hypoactive bowel sounds noted, less distended
Skin: No rashes.
Neuro: CN 2-12 intact, non-focal.
Psych: Normal mood and affect.
Anticipated Discharge: > 48 hours
Subjective/Interval History
-
Date of Service: September 27, 2024
He is having significant stool output now, rectal trumpet in place
abdomen less distended but reported increased bloating post clears yesterday
Objective Data
-
Labs:
Laboratory Results
09/27/24
05:35
WBC 6.5
Hgb 15.3
Hct 42.7
Plt Count 190
Sodium 134 L
Potassium 3.8
Chloride 104
Carbon Dioxide 16 L
BUN 46 H
Creatinine 1.7 H
Glucose 139 H
Calcium 10.9 H
Vital Signs:
Vital Signs
Temp Pulse Resp BP Pulse Ox
97.6 F 87 18 106/62 96
09/27/24 07:00 09/27/24 07:00 09/27/24 07:00 09/27/24 07:00 09/27/24 07:00
I&O
09/26/24 09/27/24 09/28/24
06:59 06:59 06:59
Intake Total 1716 / 1716 240 / 240
Output Total 350 / 350 3650 / 3650
Balance 1366 / 1366 -3410 / -3410
Review of Systems
-
History Source: Patient
All other systems: Reviewed and negative
Physical Exam
-
General: No Apparent Distress
HEENT: PERRLA
Respiratory: Clear to Auscultation; Negative Wheezes
Cardiac: Regular Rhythm and S1/S2
GI: Other (less distended, non-tender )
Musculoskeletal: No Edema
Skin: Warm and Dry; Negative Rash
Neuro: AO x 3
Psych: Calm
Data Reviewed
-
Diagnostic Radiology: Report Reviewed by me
Labs: Labs Reviewed by me
[2024-09-27] MEDS: VISBIOME 1 CAP PO (10:17)
[2024-09-27] MEDS: STERILE WATER FOR INJECTION 20 ML IV (11:18)
[2024-09-27] MEDS: ROCEPHIN 2000 MG IV (11:18)
[2024-09-27 12:11] LABS: Glucose - Point of Care 160 mg/dl (70-99)
--- NOTE | 2024-09-27 12:39 | W.PN.NEPH.PH ---
Today's Communication / Plan
-
TPN
Assessment/Plan
-
84-year-old male past medical history of carotid stenosis, prior CVA, hypertension, hyperlipidemia, basal cell carcinoma, atrial fibrillation, GERD, presenting with predominantly diarrhea and some vomiting starting 2 days ago.
Renal consultation for acute kidney injury creatinine of 4 on admission increased to 5.3
Hypotensive on admission with some improvement with IV fluids
Impression.
Acute kidney injury creatinine 5.3, but normal baseline
Diarrhea enteritis
hypokalemia secondary to diarrhea.
Atrial fibrillation.
thrombocytopenia
Plan.
TPN ordered, lytes balanced
additional IVF given volume of diarrhea
follow BMP
continue abx for salmonella
Will hold dialysis today and follow creatinine
-
-
Date of Service: September 27, 2024
CC / HPI / ROS
-
Chief Complaint:
Diarrhea
History of Present Illness:
on abx for salmonella enteritis
BP stable
HUNTER/Cr up to 1.7
diet advanced
TPN running
voluminous diarrhea again
last HD 09/24
Review of Systems:
no CP/SOB
nonoliguric
diarrhea
Labs
-
Labs:
WBC 6.5 10^3/uL (4.8-10.8) 09/27/24 05:35
RBC 4.92 10^6/uL (4.70-6.10) 09/27/24 05:35
Hgb 15.3 g/dL (13.0-18.0) 09/27/24 05:35
Hct 42.7 % (39.0-52.0) 09/27/24 05:35
Plt Count 190 10^3/uL (130-400) 09/27/24 05:35
Sodium 134 mmol/L (135-145) L 09/27/24 05:35
Potassium 3.8 mmol/L (3.5-5.1) 09/27/24 05:35
Chloride 104 mmol/L (98-107) 09/27/24 05:35
Carbon Dioxide 16 mmol/L (22-30) L 09/27/24 05:35
BUN 46 mg/dl (9-20) H 09/27/24 05:35
Creatinine 1.7 mg/dL (0.7-1.3) H 09/27/24 05:35
eGFR 39.75 09/27/24 05:35
Glucose 139 mg/dl (70-99) H 09/27/24 05:35
Calcium 10.9 mg/dl (8.4-10.2) H 09/27/24 05:35
Phosphorus 3.1 mg/dl (2.5-4.5) 09/27/24 05:35
Albumin Cancelled 09/22/24 10:42
Physical Exam
-
Vital Signs:
Vital Signs
Temp Pulse Resp BP Pulse Ox
97.6 F 87 18 106/62 96
09/27/24 07:00 09/27/24 07:00 09/27/24 07:00 09/27/24 07:00 09/27/24 07:00
Cardiovascular:: Regular rate and rhythm
Respiratory:: Bilateral: CTA
Lung Excursion:: Normal
Abdomen:: Nontender and Soft
Bowel Sounds:: Normal
Extremity Edema:: None: Bilateral:
[2024-09-27] MEDS: SODIUM BICARBONATE 1150 MEQ IV (13:29)
--- NOTE | 2024-09-27 13:32 | W.PN.ID1 ---
Date of Service
Date of Service: September 27, 2024
Today's Communication
Continue ceftriaxone 2g IV q24 (d#)
Assessment / Plan
# Complicated Salmonella gastroenteritis with bacteremia
. Of note onset of diarrhea after eating chicken wings.
# Ileus vs partial SBO onset /, on TPN
# Severe pre-renal HUNTER
. resolving; no longer on HD
# s/p Septic shock
- Repeat blood cx's neg to date
- Contact isolation if incontinent of stool.
- Continue ceftriaxone 2g IV q24 (d#)
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
Hypertension
HLD
Atrial fibrillation
CVA
Basal cell carcinoma
Left carotid endarterectomy
Appendectomy
Bilateral TKA
Chief Complaint
-: Bacteremia and Other (diarrhea)
Subjective / Review of Systems
No abd pain. + bloating
Vital Signs / Physical Exam
Vital Signs
Vital Signs
Temp Pulse Resp BP Pulse Ox
97.6 F 87 18 106/62 96
09/27/24 07:00 09/27/24 07:00 09/27/24 07:00 09/27/24 07:00 09/27/24 07:00
Physical Exam
Constitutional: No Acute Distress and Comfortable
Pulmonary: Clear
Gastrointestinal: Soft, Non Tender, Distended, Decreased Bowel Sounds and Other (FMS liquid stool)
Extremities: Negative Edema
Neurological: AO x 3
Objective Data
Lab Data
Lab Results
09/27/24 05:35
09/27/24 05:35
Estimated Creat Clear 31 ml/min 09/27/24 05:35
Total Bilirubin Cancelled 09/22/24 10:42
AST Cancelled 09/22/24 10:42
ALT Cancelled 09/22/24 10:42
Alkaline Phosphatase Cancelled 09/22/24 10:42
Most recent labs reviewed.
Micro Results:
09/26/24 04:36 C. difficile GDH Antigen & Toxins - Final
Feces/Stool Negative for toxigenic C.difficile
09/17/24 04:47 Blood Culture - Final
Blood/Venous No Growth - Final Report
09/16/24 10:46 Blood Culture - Final
Blood/Venous No Growth - Final Report
09/15/24 10:08 Blood Culture - Final
Blood/Venous Salmonella species
Gram Stain - Final
09/15/24 08:42 Blood Culture - Final
Blood/Venous Salmonella species
Gram Stain - Final
09/13/24 22:18 Miscellaneous Microbiology Test - Pending
Feces/Stool
09/13/24 22:18 Salmonella/Shigella Culture - Final
Feces/Stool Salmonella species
Campylobacter Culture - Final
No Campylobacter species isolated.
Shiga Toxin Test - Final
No E. coli Shiga Toxin 1 or 2 detected.
09/13/24 22:18 C. difficile GDH Antigen & Toxins - Final
Feces/Stool Negative for toxigenic C.difficile
- Final
Negative for Norovirus GI and GII.
Imaging:
09/21/2024 Abdominal flatplate: Numerous dilated loops of small bowel, similar to recent examination. Air is noted within the colon without significant dilatation. Findings most likely represent small bowel obstruction, most likely partial.
09/13/24 CT a/p: Fluid attenuation in the colon most in keeping with a diarrheal illness. No other acute inflammatory process in the abdomen or pelvis within the limitations of the lack of oral and intravenous contrast.
[2024-09-27 15:00] VITALS: BP 122/68
[2024-09-27 18:25] LABS: Glucose - Point of Care 135 mg/dl (70-99)
[2024-09-27] MEDS: Parenteral Nutrition, Central 2000 IV (21:07)
[2024-09-27 23:35] VITALS: BP 114/68
[2024-09-28 00:26] LABS: Glucose - Point of Care 119 mg/dl (70-99)
[2024-09-28] MEDS: NOVOLOG FLEXPEN-LOW RESISTANCE SC ×5 (00:35→23:44)
[2024-09-28 05:15] VITALS: BMI 26.6
[2024-09-28 07:00] VITALS: BP 104/60
[2024-09-28 07:26] LABS: Glucose - Point of Care 132 mg/dl (70-99)
[2024-09-28] MEDS: PROTONIX IV 40 MG IV (07:53)
[2024-09-28] MEDS: NSS (PRESERVATIVE FREE) 10 ML IV (07:53)
[2024-09-28] MEDS: HEPARIN 5000 UNITS SC ×2 (07:54→21:21)
[2024-09-28] MEDS: LOW STRENGTH ASPIRIN 81 MG PO (07:54)
[2024-09-28] MEDS: VISBIOME 1 CAP PO (07:54)
--- NOTE | 2024-09-28 09:59 | W.PN.ID1 ---
Date of Service
Date of Service: September 28, 2024
Today's Communication
- Last day ceftriaxone 2g IV q24 (d#14 )
- ID will sign off.
Assessment / Plan
# Complicated Salmonella gastroenteritis with bacteremia
. onset of diarrhea after eating chicken wings.
# Ileus vs partial SBO onset 09/20, improving
# Severe pre-renal HUNTER
. resolving; no longer on HD
# s/p Septic shock
- Repeat blood cx's neg
- Contact isolation if incontinent of stool.
- Last day ceftriaxone 2g IV q24 (d#14 )
-Current diarrhea likely due to resolving ileus. C. diff neg.
-ID will sign off.
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
Hypertension
HLD
Atrial fibrillation
CVA
Basal cell carcinoma
Left carotid endarterectomy
Appendectomy
Bilateral TKA
Chief Complaint
-: Bacteremia and Other (diarrhea)
Subjective / Review of Systems
Belly not as bloated.
Vital Signs / Physical Exam
Vital Signs
Vital Signs
Temp Pulse Resp BP Pulse Ox
97.5 F 88 17 104/60 97
09/28/24 07:00 09/28/24 07:00 09/28/24 07:00 09/28/24 07:00 09/28/24 07:00
Physical Exam
Constitutional: No Acute Distress and Comfortable
Cardiovascular: Regular Rate and S1/S2
Pulmonary: Clear
Gastrointestinal: Soft, Distended (decreased distention) and Normal Bowel Sounds
Extremities: Negative Edema
Neurological: AO x 3
Objective Data
Lab Data
Lab Results
09/27/24 05:35
Estimated Creat Clear 31 ml/min 09/27/24 05:35
Total Bilirubin Cancelled 09/22/24 10:42
AST Cancelled 09/22/24 10:42
ALT Cancelled 09/22/24 10:42
Alkaline Phosphatase Cancelled 09/22/24 10:42
Most recent labs reviewed.
Micro Results:
09/26/24 04:36 C. difficile GDH Antigen & Toxins - Final
Feces/Stool Negative for toxigenic C.difficile
09/17/24 04:47 Blood Culture - Final
Blood/Venous No Growth - Final Report
09/16/24 10:46 Blood Culture - Final
Blood/Venous No Growth - Final Report
09/15/24 10:08 Blood Culture - Final
Blood/Venous Salmonella species
Gram Stain - Final
09/15/24 08:42 Blood Culture - Final
Blood/Venous Salmonella species
Gram Stain - Final
09/13/24 22:18 Miscellaneous Microbiology Test - Pending
Feces/Stool
09/13/24 22:18 Salmonella/Shigella Culture - Final
Feces/Stool Salmonella species
Campylobacter Culture - Final
No Campylobacter species isolated.
Shiga Toxin Test - Final
No E. coli Shiga Toxin 1 or 2 detected.
09/13/24 22:18 C. difficile GDH Antigen & Toxins - Final
Feces/Stool Negative for toxigenic C.difficile
- Final
Negative for Norovirus GI and GII.
Imaging:
09/21/2024 Abdominal flatplate: Numerous dilated loops of small bowel, similar to recent examination. Air is noted within the colon without significant dilatation. Findings most likely represent small bowel obstruction, most likely partial.
09/13/24 CT a/p: Fluid attenuation in the colon most in keeping with a diarrheal illness. No other acute inflammatory process in the abdomen or pelvis within the limitations of the lack of oral and intravenous contrast.
--- NOTE | 2024-09-28 10:20 | W.PN.NEPH.PH ---
Today's Communication / Plan
-
TPN provide
Additional alkaline IV fluids provided to attempt to match GI output
Follow-up labs in a.m.
Assessment/Plan
-
84-year-old male past medical history of carotid stenosis, prior CVA, hypertension, hyperlipidemia, basal cell carcinoma, atrial fibrillation, GERD, presenting with predominantly diarrhea and some vomiting starting 2 days ago.
Renal consultation for acute kidney injury creatinine of 4 on admission increased to 5.3
Hypotensive on admission with some improvement with IV fluids
Impression.
Acute kidney injury creatinine 5.3, but normal baseline
Diarrhea enteritis
hypokalemia secondary to diarrhea.
Atrial fibrillation.
thrombocytopenia
Plan.
TPN ordered, lytes balanced
labs pending
HD daily evaluation, non oliguric
additional alkalinezed IVFs given volume of diarrhea
follow BMP
continue abx for salmonella
Will hold dialysis today and follow creatinine
-
-
Date of Service: September 28, 2024
CC / HPI / ROS
-
Chief Complaint:
Diarrhea
History of Present Illness:
on abx for salmonella enteritis
BP labile
HUNTER/Cr was up to 1.7
TPN running
last HD 09/24
Review of Systems:
no CP/SOB
nonoliguric
diarrhea
stool output ~2800cc
Labs
-
Labs:
WBC 6.5 10^3/uL (4.8-10.8) 09/27/24 05:35
RBC 4.92 10^6/uL (4.70-6.10) 09/27/24 05:35
Hgb 15.3 g/dL (13.0-18.0) 09/27/24 05:35
Hct 42.7 % (39.0-52.0) 09/27/24 05:35
Plt Count 190 10^3/uL (130-400) 09/27/24 05:35
eGFR 39.75 09/27/24 05:35
Albumin Cancelled 09/22/24 10:42
Physical Exam
-
Vital Signs:
Vital Signs
Temp Pulse Resp BP Pulse Ox
97.5 F 88 17 104/60 97
09/28/24 07:00 09/28/24 07:00 09/28/24 07:00 09/28/24 07:00 09/28/24 07:00
Cardiovascular:: Regular rate and rhythm
Respiratory:: Bilateral: CTA
Lung Excursion:: Normal
Abdomen:: Nontender and Soft
Bowel Sounds:: Normal
Extremity Edema:: None: Bilateral:
Mina Catheter: No
--- NOTE | 2024-09-28 10:44 | W.PN.HOSP.TC ---
Today's Communication/Plan
-
repeat X-ray today
last day IV Ceftriaxone
awaiting AM labs
fluids per renal
Assessment / Plan
Assessment / Plan
CT A/P: Fluid attenuation in the colon most in keeping with a diarrheal illness. No other acute inflammatory process in the abdomen or pelvis within the limitations of the lack of oral and intravenous contrast.
Septic shock due to acute enterocolitis with bacteremia - Salmonella
-CT A/P above
-Status post vancomycin and cefepime, -Appreciate ID input, continue IV Ceftriaxone 2G q 24 hours (day )
-Status post Levophed, out of the ICU 09/18
Ileus versus less likely partial SBO
Worsening abdominal distention
- Abdominal x-ray shows possible ileus, cannot rule out obstruction
- 09/20 CT abdomen and pelvis with oral contrast, without IV contrast, shows ileus, enteritis, dilated small bowel, cannot rule out obstruction
- appreciate GS
- 09/23 NG tube removed
- continue CLD - tolerating
- continue TPN
-increased BM overnight 09/25-09/26; now rectal trumpet in place. patient less distended. will repeat x-ray today
Severe prerenal HUNTER:
Non-anion gap metabolic acidosis:
Acute Renal Failure
-Appreciate sr. director product management input, HD started 09/15/24
-Continue dialysis as per nephrology, creatinine rising at slower rate/ increased urinary output, hopeful for renal recovery
-Home ACEi/Norvasc stopped
-*awaiting AM labs
Thrombocytopenia
-HIT panel negative, suspect secondary to sepsis
-resume asa and hep subQ
Profound hypokalemia:
- Due to diarrhea, magnesium and phosphorus levels are normal
- Replete as needed
Paroxysmal atrial fibrillation:
-Appreciate cardiology input, Tikosyn stopped with HUNTER
Other problems:
Hypomagnesemia, resolved
NITZA s/p CEA
H/o CVA: - resume aspirin
Essential hypertension: Home ACEi/Norvasc stopped
HLD: hold Zetia/statin
H/o Basal cell carcinoma
GERD: Cont PPI
DVT prophylaxis� hep subQ
Full code
Updated daughter on phone 09/23
Total time spent to see the patient on the floor, examine the patient, review data and lab results, discuss treatment plan with patient, nursing staff around 43 minutes.
Physical exam
Gen: NAD, AAOx3.
Eyes: EOMI, PERRLA, no scleral icterus.
Neck: supple.
CV: remains RRR, +S1/S2, no m/r/g.
Resp: CTAB anteriorly, no rales, wheezes, or rhonchi.
Abd: Hypoactive bowel sounds noted, less distended
Skin: No rashes.
Neuro: CN 2-12 intact, non-focal.
Psych: Normal mood and affect.
Anticipated Discharge: > 48 hours
Subjective/Interval History
-
Date of Service: September 28, 2024
he is continuing to have frequent BM
he is urinating
Objective Data
-
Labs:
Laboratory Results
09/28/24
10:37
Sodium Pending
Potassium Pending
Chloride Pending
Carbon Dioxide Pending
BUN Pending
Creatinine Pending
Glucose Pending
Calcium Pending
Vital Signs:
Vital Signs
Temp Pulse Resp BP Pulse Ox
97.5 F 88 17 104/60 97
09/28/24 07:00 09/28/24 07:00 09/28/24 07:00 09/28/24 07:00 09/28/24 07:00
I&O
09/27/24 09/28/24 09/29/24
06:59 06:59 06:59
Intake Total 240 / 240 1680 / 1680
Output Total 3650 / 3650 3450 / 3450
Balance -3410 / -3410 -1770 / -177
Review of Systems
-
History Source: Patient
All other systems: Reviewed and negative
Physical Exam
-
General: No Apparent Distress
HEENT: PERRLA
Respiratory: Clear to Auscultation; Negative Wheezes
Cardiac: Regular Rhythm and S1/S2
GI: Other (less distended, non-tender )
Musculoskeletal: No Edema
Skin: Warm and Dry; Negative Rash
Neuro: AO x 3
Psych: Calm
Data Reviewed
-
Diagnostic Radiology: Report Reviewed by me
Labs: Labs Reviewed by me
--- NOTE | 2024-09-28 11:12 | CM ---
Dialysis records sent via fax to [facility] on 09/25/2024. He has been accepted for services Tuesday, , Tuesday with start time of 6:45.
MD note indicates pt will remain hospitalized >48 hours.
[2024-09-28] MEDS: SODIUM BICARBONATE 1150 MEQ IV (11:44)
[2024-09-28] MEDS: ROCEPHIN 2000 MG IV (11:45)
[2024-09-28] MEDS: STERILE WATER FOR INJECTION 20 ML IV (11:45)
[2024-09-28 11:55] LABS: Blood Urea Nitrogen 58 mg/dl (9-20); Calcium 9.9 mg/dl (8.4-10.2); Carbon Dioxide 18 mmol/L (22-30); Chloride 100 mmol/L (98-107); Estimated Creatinine Clearance 35 ml/min; Glucose 139 mg/dl (70-99); Magnesium 1.9 mg/dl (1.6-2.3); Phosphorus 2.2 mg/dl (2.5-4.5); Potassium 3.8 mmol/L (3.5-5.1); Sodium 134 mmol/L (135-145); eGFR 46.19
[2024-09-28 12:25] LABS: Glucose - Point of Care 133 mg/dl (70-99)
--- NOTE | 2024-09-28 13:07 | PTCARENOTE ---
Took much encouragement for patient to be willing to get into chair. Sat up for ~30minutes before asking to get back in bed.
[2024-09-28] MEDS: POTASSIUM PHOSPHATE 253.4091 MEQ IV (14:42)
[2024-09-28] MEDS: TYLENOL 1000 MG PO (14:44)
[2024-09-28 15:00] VITALS: BP 105/56
--- NOTE | 2024-09-28 16:14 | CM ---
Call received from Isis with [facility]. Pt has been approved for a dialysis chair beginning this Tuesday,
10/02/2024.
Isis can be contacted at [phone] for updates in the event Gm is still hospitalized and unable to start at the dialysis center on Tuesday.
--- NOTE | 2024-09-28 16:20 | PTCARENOTE ---
Daughter called recovery unit operator to express concerns regarding care and the desire for Dr. Steve to call into patient's room to discuss. Dr. Steve notified this RN that patient is reporting pain d/t rectal tube. This RN went into assess, was able to
reposition the rectal tube, pt now reports much relief. When asked, the patient offers no other complaints at this time.
[2024-09-28 18:06] LABS: Glucose - Point of Care 132 mg/dl (70-99)
[2024-09-28] MEDS: Parenteral Nutrition, Central 2000 IV (21:44)
[2024-09-28 23:42] LABS: Glucose - Point of Care 131 mg/dl (70-99)
[2024-09-28 23:51] VITALS: BP 121/67
[2024-09-29 06:00] VITALS: BMI 26.9
[2024-09-29 06:06] LABS: Glucose - Point of Care 129 mg/dl (70-99)
[2024-09-29] MEDS: NOVOLOG FLEXPEN-LOW RESISTANCE SC ×3 (06:31→18:28)
[2024-09-29 07:00] VITALS: BP 116/63
[2024-09-29] MEDS: PROTONIX IV 40 MG IV (08:37)
[2024-09-29] MEDS: NSS (PRESERVATIVE FREE) 10 ML IV (08:37)
[2024-09-29] MEDS: FLUSH (NSS) 2 FLUSH IV ×2 (08:37→11:43)
[2024-09-29] MEDS: LOW STRENGTH ASPIRIN 81 MG PO (08:39)
[2024-09-29] MEDS: VISBIOME 1 CAP PO (08:39)
[2024-09-29] MEDS: HEPARIN 5000 UNITS SC ×2 (08:40→21:27)
[2024-09-29 09:21] LABS: Blood Urea Nitrogen 58 mg/dl (9-20); Calcium 9.2 mg/dl (8.4-10.2); Carbon Dioxide 25 mmol/L (22-30); Chloride 99 mmol/L (98-107); Estimated Creatinine Clearance 41 ml/min; Glucose 127 mg/dl (70-99); Magnesium 1.8 mg/dl (1.6-2.3); Potassium 3.7 mmol/L (3.5-5.1); Sodium 134 mmol/L (135-145); eGFR 54.85
[2024-09-29] MEDS: SODIUM BICARBONATE 1150 MEQ IV (10:32)
[2024-09-29] MEDS: SODIUM BICARBONATE IV (10:36)
--- NOTE | 2024-09-29 10:52 | W.PN.HOSP.TC ---
Today's Communication/Plan
-
clears
repeat x-ray tomorrow, abdomen feels less distended today
renal function recovering
appreciate consultants
Assessment / Plan
Assessment / Plan
CT A/P: Fluid attenuation in the colon most in keeping with a diarrheal illness. No other acute inflammatory process in the abdomen or pelvis within the limitations of the lack of oral and intravenous contrast.
Septic shock due to acute enterocolitis with bacteremia - Salmonella
-s/p ICu stay on Levophed, now HDS
-CT A/P above
-Status post vancomycin and cefepime, transitioned to IV Ceftriaxone
-now completed 14 days IV Ceftriaxone (end date 09/28/24)
Ileus post Severe Enterocolitis
- Abdominal x-ray shows possible ileus, cannot rule out obstruction
- 09/20 CT abdomen and pelvis with oral contrast, without IV contrast, shows ileus, enteritis, dilated small bowel, cannot rule out obstruction
- appreciate GS
- / NG tube removed
- continue CLD - tolerating
- continue TPN
-increased BM overnight 09/25-09/26; now rectal trumpet in place. patient less distended but x-ray showing persistent ileus
-continue clears, repeat x-ray tomorrow
Severe prerenal HUNTER:
Non-anion gap metabolic acidosis:
Acute Renal Failure
-Appreciate webfed offset press operator input, HD started 09/15/24
-patient now showing signs of renal recovery with decreased creatinine without HD
-fluids per renal
-Home ACEi/Norvasc stopped
Thrombocytopenia
-HIT panel negative, suspect secondary to sepsis
-resume asa and hep subQ
Profound hypokalemia:
- Due to diarrhea, magnesium and phosphorus levels are normal
- Replete as needed
Paroxysmal atrial fibrillation:
-Appreciate cardiology input, Tikosyn stopped with HUNTER
Other problems:
Hypomagnesemia, resolved
NITZA s/p CEA
H/o CVA: - resume aspirin
Essential hypertension: Home ACEi/Norvasc stopped
HLD: hold Zetia/statin
H/o Basal cell carcinoma
GERD: Cont PPI
DVT prophylaxis� hep subQ
Full code
Updated daughter on phone 09/23
Total time spent to see the patient on the floor, examine the patient, review data and lab results, discuss treatment plan with patient, nursing staff around 43 minutes.
Physical exam
Gen: NAD, AAOx3.
Eyes: EOMI, PERRLA, no scleral icterus.
Neck: supple.
CV: remains RRR, +S1/S2, no m/r/g.
Resp: CTAB anteriorly, no rales, wheezes, or rhonchi.
Abd: Hypoactive bowel sounds noted, less distended
Skin: No rashes.
Neuro: CN 2-12 intact, non-focal.
Psych: Normal mood and affect.
Anticipated Discharge: > 48 hours
Subjective/Interval History
-
Date of Service: September 29, 2024
no new complaints
tolerating clears
Objective Data
-
Labs:
Laboratory Results
09/29/24
08:44
Sodium 134 L
Potassium 3.7
Chloride 99
Carbon Dioxide 25
BUN 58 H
Creatinine 1.3
Glucose 127 H
Calcium 9.2
Vital Signs:
Vital Signs
Temp Pulse Resp BP Pulse Ox
97.6 F 86 18 116/63 98
09/29/24 07:00 09/29/24 07:00 09/29/24 07:00 09/29/24 07:00 09/29/24 07:00
I&O
09/28/24 09/29/24 09/30/24
06:59 06:59 06:59
Intake Total 1680 / 1680 4902 / 4902
Output Total 3450 / 3450 3700 / 3700
Balance -1770 / -1770 1202 / 1202
Review of Systems
-
History Source: Patient
All other systems: Reviewed and negative
Physical Exam
-
General: No Apparent Distress
HEENT: PERRLA
Respiratory: Clear to Auscultation; Negative Wheezes
Cardiac: Regular Rhythm and S1/S2
GI: Other (less distended, non-tender )
Musculoskeletal: No Edema
Skin: Warm and Dry; Negative Rash
Neuro: AO x 3
Psych: Calm
Data Reviewed
-
Diagnostic Radiology: Report Reviewed by me
Labs: Labs Reviewed by me
[2024-09-29] MEDS: ROCEPHIN 2000 MG IV (11:43)
[2024-09-29] MEDS: STERILE WATER FOR INJECTION 20 ML IV (11:43)
[2024-09-29 12:15] LABS: Glucose - Point of Care 129 mg/dl (70-99)
--- NOTE | 2024-09-29 12:31 | W.PN.NEPH.PH ---
Today's Communication / Plan
-
Phosphorus escalated in TPN, TPN provided
Can hold off further sodium bicarbonate IV fluids once current bag completed
Assessment/Plan
-
84-year-old male past medical history of carotid stenosis, prior CVA, hypertension, hyperlipidemia, basal cell carcinoma, atrial fibrillation, GERD, presenting with predominantly diarrhea and some vomiting starting 2 days ago.
Renal consultation for acute kidney injury creatinine of 4 on admission increased to 5.3
Hypotensive on admission with some improvement with IV fluids
Impression.
Acute kidney injury creatinine 5.3, but normal baseline
Diarrhea enteritis
hypokalemia secondary to diarrhea.
Atrial fibrillation.
thrombocytopenia
Plan.
TPN ordered, lytes balanced, will adjust up phosphorus in TPN
No dialysis indication as creatinine is down to 1 point
additional alkalinized IVFs given volume of diarrhea, we can stop after current bag completed
follow BMP
continue abx for salmonella
-
-
Date of Service: September 29, 2024
CC / HPI / ROS
-
Chief Complaint:
Diarrhea
History of Present Illness:
on abx for salmonella enteritis
BP labile
HUNTER/Cr down to 1.3
TPN running
last HD 09/24
Review of Systems:
no CP/SOB
nonoliguric
diarrhea
stool output ~2500cc
Labs
-
Labs:
WBC 6.5 10^3/uL (4.8-10.8) 09/27/24 05:35
RBC 4.92 10^6/uL (4.70-6.10) 09/27/24 05:35
Hgb 15.3 g/dL (13.0-18.0) 09/27/24 05:35
Hct 42.7 % (39.0-52.0) 09/27/24 05:35
Plt Count 190 10^3/uL (130-400) 09/27/24 05:35
Sodium 134 mmol/L (135-145) L 09/29/24 08:44
Potassium 3.7 mmol/L (3.5-5.1) 09/29/24 08:44
Chloride 99 mmol/L (98-107) 09/29/24 08:44
Carbon Dioxide 25 mmol/L (22-30) 09/29/24 08:44
BUN 58 mg/dl (9-20) H 09/29/24 08:44
Creatinine 1.3 mg/dL (0.7-1.3) 09/29/24 08:44
eGFR 54.85 09/29/24 08:44
Glucose 127 mg/dl (70-99) H 09/29/24 08:44
Calcium 9.2 mg/dl (8.4-10.2) 09/29/24 08:44
Phosphorus 2.0 mg/dl (2.5-4.5) L 09/29/24 08:44
Albumin Cancelled 09/22/24 10:42
Physical Exam
-
Vital Signs:
Vital Signs
Temp Pulse Resp BP Pulse Ox
97.6 F 86 18 116/63 98
09/29/24 07:00 09/29/24 07:00 09/29/24 07:00 09/29/24 07:00 09/29/24 07:00
Cardiovascular:: Regular rate and rhythm
Respiratory:: Bilateral: CTA
Lung Excursion:: Normal
Abdomen:: Nontender and Soft
Bowel Sounds:: Normal
Extremity Edema:: None: Bilateral:
Mina Catheter: No
[2024-09-29 15:00] VITALS: BP 104/55
[2024-09-29 18:12] LABS: Glucose - Point of Care 109 mg/dl (70-99)
--- NOTE | 2024-09-29 20:57 | PTCARENOTE ---
Oral care was not performed on patient because they stated that it was their preference to brush their teeth in the morning.
[2024-09-29] MEDS: Parenteral Nutrition, Central 2000 IV (21:28)
[2024-09-29 22:59] VITALS: BP 110/58
[2024-09-30 00:16] LABS: Glucose - Point of Care 114 mg/dl (70-99)
[2024-09-30] MEDS: NOVOLOG FLEXPEN-LOW RESISTANCE SC ×4 (01:03→17:57)
[2024-09-30 05:44] LABS: Glucose - Point of Care 116 mg/dl (70-99)
[2024-09-30 06:00] VITALS: BMI 27.8
[2024-09-30 06:24] LABS: Ionized Calcium 1.14 mMOL/L (1.15-1.33)
[2024-09-30 06:34] LABS: Hematocrit 35.2 % (39.0-52.0); Hemoglobin 12.5 g/dL (13.0-18.0); Mean Corp Hgb Conc. 35.5 g/dL (33.0-37.0); Mean Corpuscular Volume 87.3 fL (80.0-94.0); Mean Platelet Volume 10.9 fL (7.4-10.4); Platelet Count 166 10^3/uL (130-400); Red Blood Cell Count 4.03 10^6/uL (4.70-6.10); Red Cell Dist. Width 13.1 % (11.5-14.5); White Blood Cell Count 5.3 10^3/uL (4.8-10.8)
[2024-09-30 07:00] VITALS: BP 117/50
[2024-09-30 07:08] LABS: Blood Urea Nitrogen 43 mg/dl (9-20); Calcium 8.6 mg/dl (8.4-10.2); Carbon Dioxide 34 mmol/L (22-30); Chloride 97 mmol/L (98-107); Estimated Creatinine Clearance 48 ml/min; Glucose 116 mg/dl (70-99); Magnesium 1.8 mg/dl (1.6-2.3); Phosphorus 2.1 mg/dl (2.5-4.5); Potassium 3.7 mmol/L (3.5-5.1); Sodium 136 mmol/L (135-145); eGFR > 60.00
[2024-09-30] MEDS: VISBIOME 1 CAP PO (08:26)
[2024-09-30] MEDS: HEPARIN 5000 UNITS SC ×2 (08:26→20:36)
[2024-09-30] MEDS: LOW STRENGTH ASPIRIN 81 MG PO (08:26)
[2024-09-30] MEDS: PROTONIX IV 40 MG IV (08:29)
[2024-09-30] MEDS: NSS (PRESERVATIVE FREE) 10 ML IV (08:29)
[2024-09-30 12:15] LABS: Glucose - Point of Care 125 mg/dl (70-99)
--- NOTE | 2024-09-30 12:32 | W.PN.HOSP.TC ---
Today's Communication/Plan
-
advance to fulls
appreciate Renal
TPN
encourage PT (rectal tube now out)
Assessment / Plan
Assessment / Plan
Mr. Gm Warner is a 84 yo man with hx carotid stenosis s/p CEA 10/2023, prior CVA, essential HTN, HLD afib s/p Watchman presents to the ER with diarrhea found to have renal failure, septic shock in setting of Salmonella
gastroenteritis/bacteremia. Hospital course with initiation of HD, now with renal recovery. Hospital course with development of ileus requiring TPN, with slow recovery.
CT A/P: Fluid attenuation in the colon most in keeping with a diarrheal illness. No other acute inflammatory process in the abdomen or pelvis within the limitations of the lack of oral and intravenous contrast.
Septic shock due to acute enterocolitis with Salmonella bacteremia
-CT A/P above
-s/p ICu stay on Levophed (transferred out 09/18/24), now HDS
-Status post vancomycin and cefepime earlier in hospital course, transitioned to IV Ceftriaxone
-now completed 14 days IV Ceftriaxone (end date 09/28/24)
Ileus post Severe Enterocolitis
- 09/20 CT abdomen and pelvis with oral contrast, without IV contrast, shows ileus, enteritis, dilated small bowel, cannot rule out obstruction
- appreciate GS
- s/p NGT, 09/23 NG tube removed
-initiated on TPN
-increased BM overnight 09/25-09/26 requiring rectal trumpet. Output decreased overnight 09/29-09/30; rectal trumpet removed today. Patient reported slightly more consistency to stool
-Case briefly discussed with GI, although x-ray shows persistent distention, clinically patient is improving, less distended and tolerating clears. I will advance to fulls and see how he tolerates.
Severe prerenal HUNTER:
Non-anion gap metabolic acidosis:
Acute Renal Failure
-Appreciate title examiner input, HD started 09/15/24
-patient now with evidence of renal recovery, creatinine WNL this AM
- IVF now off
-home HANH-I, norvasc stopped
Thrombocytopenia
-HIT panel negative, suspect secondary to sepsis
-resume asa and hep subQ
Profound hypokalemia:
- Due to diarrhea, repleted
-patient is now on TPN
Paroxysmal atrial fibrillation:
-hx Watchman
-Appreciate cardiology input, Tikosyn stopped with HUNTER
Other problems:
Hypomagnesemia, resolved
NITZA s/p CEA
H/o CVA: - resume aspirin
Essential hypertension: Home ACEi/Norvasc stopped
HLD: hold Zetia/statin
H/o Basal cell carcinoma
GERD: Cont PPI
DVT prophylaxis� hep subQ
Full code
51 minutes spent on patient care
Anticipated Discharge: 24 - 48 hours
Subjective/Interval History
-
Date of Service: September 30, 2024
less distended
overall feeling better
output decreased
Objective Data
-
Labs:
Laboratory Results
09/30/24
06:17
WBC 5.3
Hgb 12.5 L
Hct 35.2 L
Plt Count 166
Sodium 136
Potassium 3.7
Chloride 97 L
Carbon Dioxide 34 H
BUN 43 H
Creatinine 1.1
Glucose 116 H
Calcium 8.6
Vital Signs:
Vital Signs
Temp Pulse Resp BP Pulse Ox
97.7 F 68 17 117/50 95
09/30/24 07:00 09/30/24 07:00 09/30/24 07:00 09/30/24 07:00 09/30/24 07:00
I&O
09/29/24 09/30/24 10/01/24
06:59 06:59 06:59
Intake Total 4902 / 4902 5416 / 5416
Output Total 3700 / 3700 3550 / 3550
Balance 1202 / 1202 1866 / 1866
Review of Systems
-
History Source: Patient
All other systems: Reviewed and negative
Physical Exam
-
General: No Apparent Distress
HEENT: PERRLA
Respiratory: Clear to Auscultation; Negative Wheezes
Cardiac: Regular Rhythm and S1/S2
GI: Soft and Nontender
Musculoskeletal: No Edema
Skin: Warm and Dry; Negative Rash
Neuro: AO x 3
Psych: Calm
Data Reviewed
-
Diagnostic Radiology: Report Reviewed by me
Labs: Labs Reviewed by me
--- NOTE | 2024-09-30 13:35 | W.PN.NEPH.PH ---
Today's Communication / Plan
-
TPN provided
Phosphorus increased
Creatinine stable at 1.1
Weight stable
Assessment/Plan
-
84-year-old male past medical history of carotid stenosis, prior CVA, hypertension, hyperlipidemia, basal cell carcinoma, atrial fibrillation, GERD, presenting with predominantly diarrhea and some vomiting starting 2 days ago.
Renal consultation for acute kidney injury creatinine of 4 on admission increased to 5.3
Hypotensive on admission with some improvement with IV fluids
Impression.
Acute kidney injury creatinine 5.3, but normal baseline
Diarrhea enteritis
hypokalemia secondary to diarrhea.
Atrial fibrillation.
thrombocytopenia
Plan.
TPN ordered, lytes balanced, will adjust up phosphorus in TPN
No dialysis indication as creatinine is down to 1.1
follow BMP
-
-
Date of Service: September 30, 2024
CC / HPI / ROS
-
Chief Complaint:
Diarrhea
History of Present Illness:
GI losses continue
Hemodynamically more stable
HUNTER/Cr down to 1.1
TPN running
last HD 09/24
Review of Systems:
no CP/SOB
nonoliguric
diarrhea
stool output ~2000cc
Labs
-
Labs:
WBC 5.3 10^3/uL (4.8-10.8) 09/30/24 06:17
RBC 4.03 10^6/uL (4.70-6.10) L 09/30/24 06:17
Hgb 12.5 g/dL (13.0-18.0) L 09/30/24 06:17
Hct 35.2 % (39.0-52.0) L 09/30/24 06:17
Plt Count 166 10^3/uL (130-400) 09/30/24 06:17
Sodium 136 mmol/L (135-145) 09/30/24 06:17
Potassium 3.7 mmol/L (3.5-5.1) 09/30/24 06:17
Chloride 97 mmol/L (98-107) L 09/30/24 06:17
Carbon Dioxide 34 mmol/L (22-30) H 09/30/24 06:17
BUN 43 mg/dl (9-20) H 09/30/24 06:17
Creatinine 1.1 mg/dL (0.7-1.3) 09/30/24 06:17
eGFR > 60.00 09/30/24 06:17
Glucose 116 mg/dl (70-99) H 09/30/24 06:17
Calcium 8.6 mg/dl (8.4-10.2) 09/30/24 06:17
Phosphorus 2.1 mg/dl (2.5-4.5) L 09/30/24 06:17
Albumin Cancelled 09/22/24 10:42
Physical Exam
-
Vital Signs:
Vital Signs
Temp Pulse Resp BP Pulse Ox
97.7 F 68 17 117/50 95
09/30/24 07:00 09/30/24 07:00 09/30/24 07:00 09/30/24 07:00 09/30/24 07:00
Cardiovascular:: Regular rate and rhythm
Respiratory:: Bilateral: CTA
Lung Excursion:: Normal
Abdomen:: Nontender and Soft
Bowel Sounds:: Normal
Extremity Edema:: None: Bilateral:
Mina Catheter: No
[2024-09-30 15:00] VITALS: BP 121/82
[2024-09-30 15:41] VITALS: BP 106/59; BP 121/62; PULSE 75; O2SAT 97
[2024-09-30 17:57] LABS: Glucose - Point of Care 122 mg/dl (70-99)
--- NOTE | 2024-09-30 21:33 | PTCARENOTE ---
Oral care was not performed on patient because he stated that it was his preference to brush his teeth in the morning.
[2024-09-30] MEDS: Parenteral Nutrition, Central 2000 IV (22:00)
[2024-09-30 23:00] VITALS: BP 136/52
[2024-09-30 23:47] LABS: Glucose - Point of Care 124 mg/dl (70-99)
[2024-10-01] MEDS: NOVOLOG FLEXPEN-LOW RESISTANCE SC ×4 (01:02→17:33)
[2024-10-01 05:09] VITALS: BMI 27.7
[2024-10-01 07:20] VITALS: BP 128/60
[2024-10-01 07:22] LABS: Glucose - Point of Care 111 mg/dl (70-99)
[2024-10-01 08:11] LABS: Glucose - Point of Care 128 mg/dl (70-99)
[2024-10-01] MEDS: LOW STRENGTH ASPIRIN 81 MG PO (08:53)
[2024-10-01] MEDS: HEPARIN SC (08:53)
[2024-10-01] MEDS: PROTONIX IV 40 MG IV (08:53)
[2024-10-01] MEDS: NSS (PRESERVATIVE FREE) 10 ML IV (08:53)
[2024-10-01] MEDS: VISBIOME 1 CAP PO (08:53)
--- NOTE | 2024-10-01 09:34 | W.PN.HOSP.TC ---
Today's Communication/Plan
-
Advance to low residue diet
Assessment / Plan
Assessment / Plan
Mr. Gm Warner is a 84 yo man with hx carotid stenosis s/p CEA 10/2023, prior CVA, essential HTN, HLD afib s/p Watchman presents to the ER with diarrhea found to have renal failure, septic shock in setting of Salmonella
gastroenteritis/bacteremia. Hospital course with initiation of HD, now with renal recovery. Hospital course with development of ileus requiring TPN, with slow recovery.
CT A/P: Fluid attenuation in the colon most in keeping with a diarrheal illness. No other acute inflammatory process in the abdomen or pelvis within the limitations of the lack of oral and intravenous contrast.
Septic shock due to acute enterocolitis with Salmonella bacteremia
-CT A/P above
-s/p ICu stay on Levophed (transferred out 09/18/24), now HDS
-Status post vancomycin and cefepime earlier in hospital course, transitioned to IV Ceftriaxone
-now completed 14 days IV Ceftriaxone (end date 09/28/24)
-PT rec HH
Ileus post Severe Enterocolitis
-09/20 CT abdomen and pelvis with oral contrast, without IV contrast, shows ileus, enteritis, dilated small bowel, cannot rule out obstruction
-appreciate GS & GI
-s/p NGT, 09/23 NG tube removed
-initiated on TPN
-increased BM overnight 09/25-09/26 requiring rectal trumpet. Output decreased overnight 09/29-09/30; rectal trumpet removed today. Patient reported slightly more consistency to stool
-Tolerating full liquids, will advance to low residue, stop TPN
Severe prerenal HUNTER:
Non-anion gap metabolic acidosis:
Acute Renal Failure
-Appreciate rig hand input, HD started 09/15/24
-patient now with evidence of renal recovery, creatinine WNL
-home HANH-I, norvasc stopped
-off hemodialysis since 09/24, creatinine stable
Thrombocytopenia
-HIT panel negative, suspect secondary to sepsis
-resumed asa and hep subQ
Profound hypokalemia:
- Due to diarrhea, repleted
- Status post TPN
Hypophosphatemia
- Replete, recheck a.m. phosphorus levels
Paroxysmal atrial fibrillation:
-hx Watchman
-Appreciate cardiology input, Tikosyn stopped with HUNTER
Other problems:
Hypomagnesemia, resolved
NITZA s/p CEA
H/o CVA: - resumed aspirin
Essential hypertension: Home ACEi/Norvasc stopped
HLD: hold Zetia/statin
H/o Basal cell carcinoma
GERD: Cont PPI
DVT prophylaxis� hep subQ
Full code
Updated family at bedside 10/01
Total time spent to see the patient on the floor, examine the patient, review data and lab results, discuss treatment plan with patient, nursing staff around 50 minutes.
Physical Exam
General: No acute distress
HEENT: Normocephalic, Atraumatic, EOMI, MMM
Respiratory: Clear to Auscultation bilaterally
Cardiac: Normal S1/S2, Regular Rate and Rhythm
GI: Soft, Nontender, less distended, bowel sounds present
Extremities: No Clubbing, Cyanosis, or Edema
Neuro: Nonfocal/Grossly Intact
Psych: Calm, Cooperative
Derm: No Visible lesions
Anticipated Discharge: 24 - 48 hours
Subjective/Interval History
-
Date of Service: October 01, 2024
Patient denies abdominal pain. No nausea, no vomiting. His stools are more solid now. No fever.
Objective Data
-
Labs:
Laboratory Results
10/01/24
06:00
Sodium Pending
Potassium Pending
Chloride Pending
Carbon Dioxide Pending
BUN Pending
Creatinine Pending
Glucose Pending
Calcium Pending
Vital Signs:
Vital Signs
Temp Pulse Resp BP Pulse Ox
98.5 F 65 14 128/60 97
10/01/24 07:20 10/01/24 07:20 10/01/24 07:20 10/01/24 07:20 10/01/24 07:20
I&O
09/30/24 10/01/24 10/02/24
06:59 06:59 06:59
Intake Total 5416 / 5416 1200 / 1200 1227 / 1227
Output Total 3550 / 3550 600 / 600
Balance 1866 / 1866 600 / 600 1227 / 1227
[2024-10-01 11:20] VITALS: BP 130/66
--- NOTE | 2024-10-01 11:51 | W.PN.NEPH.PH ---
Addendum entered and electronically signed by Mony Holyl MD 10/01/24 16:50:
if renal function remain stable likely d/c HD catheter
Original Note:
Today's Communication / Plan
-
off TPN, follow labs
Assessment/Plan
-
84-year-old male past medical history of carotid stenosis, prior CVA, hypertension, hyperlipidemia, basal cell carcinoma, atrial fibrillation, GERD, presenting with predominantly diarrhea and some vomiting starting 2 days ago.
Renal consultation for acute kidney injury creatinine of 4 on admission increased to 5.3
Hypotensive on admission with some improvement with IV fluids
Impression.
Acute kidney injury creatinine 5.3, but normal baseline
Diarrhea enteritis
hypokalemia secondary to diarrhea.
Atrial fibrillation.
thrombocytopenia
Plan.
tolerating low residue diet
hold TPN from today, d/w primary
off HD since 09/24, cr stable at 1.1
labs in am
-
-
Date of Service: October 01, 2024
CC / HPI / ROS
-
Chief Complaint:
Diarrhea
History of Present Illness:
GI losses continue
Hemodynamically more stable
HUNTER/Cr down to 1.1, no labs done today
TPN running
last HD 09/24
Review of Systems:
no CP/SOB
nonoliguric
diarrhea still
Labs
-
Labs:
WBC 5.3 10^3/uL (4.8-10.8) 09/30/24 06:17
RBC 4.03 10^6/uL (4.70-6.10) L 09/30/24 06:17
Hgb 12.5 g/dL (13.0-18.0) L 09/30/24 06:17
Hct 35.2 % (39.0-52.0) L 09/30/24 06:17
Plt Count 166 10^3/uL (130-400) 09/30/24 06:17
eGFR > 60.00 09/30/24 06:17
Albumin Cancelled 09/22/24 10:42
Physical Exam
-
Vital Signs:
Vital Signs
Temp Pulse Resp BP Pulse Ox
98.3 F 68 16 130/66 96
10/01/24 11:20 10/01/24 11:20 10/01/24 11:20 10/01/24 11:20 10/01/24 11:20
Cardiovascular:: Regular rate and rhythm
Respiratory:: Bilateral: CTA
Lung Excursion:: Normal
Abdomen:: Nontender and Soft
Bowel Sounds:: Normal
Extremity Edema:: None: Bilateral:
Mina Catheter: No
[2024-10-01 11:58] LABS: Glucose - Point of Care 106 mg/dl (70-99)
[2024-10-01 15:15] VITALS: BP 121/61
[2024-10-01] MEDS: NEUTRA-PHOS POWDER PACKET 500 MG PO ×3 (15:24→22:12)
--- NOTE | 2024-10-01 15:32 | CM ---
CM spoke with Flor at [facility]. Advised that Gm no longer needs dialysis, so will not need the dialysis chair that was offered.
VM recommended; Pt declines VN, as he anticipates being active once he gets home, unsure if he will go to his own home or his daughter's home. When feeling better he plans to go to his home in [place], [place].
Plan: Discharge with no services based on pt's desire to be active; pt's daughter and granddaughter are involved and supportive.
[2024-10-01] MEDS: POTASSIUM PHOSPHATE 259.0909 MEQ IV (15:47)
[2024-10-01 17:26] LABS: Glucose - Point of Care 105 mg/dl (70-99)
[2024-10-01 19:00] VITALS: BP 134/66
[2024-10-01] MEDS: HEPARIN 5000 UNITS SC (20:24)
[2024-10-01 23:00] VITALS: BP 116/85
[2024-10-01 23:12] LABS: Glucose - Point of Care 87 mg/dl (70-99)
[2024-10-02 05:53] VITALS: BMI 27.8
[2024-10-02] MEDS: NOVOLOG FLEXPEN-LOW RESISTANCE SC ×2 (07:05)
[2024-10-02 07:35] LABS: Glucose - Point of Care 84 mg/dl (70-99)
[2024-10-02 08:04] VITALS: BP 124/59
[2024-10-02] MEDS: NSS (PRESERVATIVE FREE) 10 ML IV (08:10)
[2024-10-02] MEDS: LOW STRENGTH ASPIRIN 81 MG PO (08:10)
[2024-10-02] MEDS: VISBIOME 1 CAP PO (08:10)
[2024-10-02] MEDS: PROTONIX IV 40 MG IV (08:10)
[2024-10-02] MEDS: HEPARIN SC (08:10)
[2024-10-02] MEDS: NEUTRA-PHOS POWDER PACKET 500 MG PO (08:17)
[2024-10-02 08:22] LABS: Blood Urea Nitrogen 32 mg/dl (9-20); Calcium 8.6 mg/dl (8.4-10.2); Carbon Dioxide 29 mmol/L (22-30); Chloride 103 mmol/L (98-107); Estimated Creatinine Clearance 53 ml/min; Glucose 100 mg/dl (70-99); Magnesium 1.7 mg/dl (1.6-2.3); Phosphorus 4.5 mg/dl (2.5-4.5); Potassium 5.1 mmol/L (3.5-5.1); Sodium 140 mmol/L (135-145); eGFR > 60.00
--- NOTE | 2024-10-02 08:54 | W.PN.HOSP.TC ---
Today's Communication/Plan
-
Medically stable for discharge today
Assessment / Plan
Assessment / Plan
Mr. Gm Warner is a 84 yo man with hx carotid stenosis s/p CEA 10/2023, prior CVA, essential HTN, HLD afib s/p Watchman presents to the ER with diarrhea found to have renal failure, septic shock in setting of Salmonella
gastroenteritis/bacteremia. Hospital course with initiation of HD, now with renal recovery. Hospital course with development of ileus requiring TPN, with slow recovery.
CT A/P: Fluid attenuation in the colon most in keeping with a diarrheal illness. No other acute inflammatory process in the abdomen or pelvis within the limitations of the lack of oral and intravenous contrast.
Septic shock due to acute enterocolitis with Salmonella bacteremia
-CT A/P above
-s/p ICu stay on Levophed (transferred out 09/18/24), now HDS
-Status post vancomycin and cefepime earlier in hospital course, transitioned to IV Ceftriaxone
-now completed 14 days IV Ceftriaxone (end date 09/28/24)
-PT rec HH, medically stable for discharge today
Ileus post Severe Enterocolitis
-09/20 CT abdomen and pelvis with oral contrast, without IV contrast, shows ileus, enteritis, dilated small bowel, cannot rule out obstruction
-appreciate GS & GI
-s/p NGT, 09/23 NG tube removed
-initiated on TPN
-increased BM overnight 09/25-09/26 requiring rectal trumpet. Output decreased overnight 09/29-09/30; rectal trumpet removed today. Patient reported slightly more consistency to stool
-TPN discontinued 10/01
-Tolerating low residue diet
Severe prerenal HUNTER:
Non-anion gap metabolic acidosis:
Acute Renal Failure
-Appreciate family resource coordinator input, HD started 09/15/24
-patient now with evidence of renal recovery, creatinine WNL
-home HANH-I, norvasc stopped
-off hemodialysis since 6/9, creatinine stable
Thrombocytopenia
-HIT panel negative, suspect secondary to sepsis
-resumed asa and hep subQ
Profound hypokalemia:
- Due to diarrhea, repleted
- Status post TPN
Hypophosphatemia
- Repleted
Paroxysmal atrial fibrillation:
-hx Watchman
-Appreciate cardiology input, Tikosyn stopped with HUNTER
-Patient currently in normal sinus rhythm
-Cardiology states no need to reinitiate Tikosyn at this time, and recommends outpatient follow-up
Other problems:
Hypomagnesemia, resolved
NITZA s/p CEA
H/o CVA: - resumed aspirin
Essential hypertension: Home ACEi/Norvasc stopped
HLD: resume Zetia/statin
H/o Basal cell carcinoma
GERD: Cont PPI
DVT prophylaxis� hep subQ
Full code
Updated family at bedside 10/01
Physical Exam
General: No acute distress
HEENT: Normocephalic, Atraumatic, EOMI, MMM
Respiratory: Clear to Auscultation bilaterally
Cardiac: Normal S1/S2, Regular Rate and Rhythm
GI: Soft, Nontender, less distended, bowel sounds present
Extremities: No Clubbing, Cyanosis, or Edema
Neuro: Nonfocal/Grossly Intact
Psych: Calm, Cooperative
Derm: No Visible lesions
Anticipated Discharge: Today
Subjective/Interval History
-
Date of Service: October 02, 2024
Patient reports feeling well. He is tolerating his low residue diet. Denies nausea, denies vomiting. Denies abdominal distention. Stools are becoming more formed. No fever, no chest pain, no shortness of breath. He is eager for discharge today.
Objective Data
-
Labs:
Laboratory Results
10/02/24
07:39
Sodium 140
Potassium 5.1 D
Chloride 103
Carbon Dioxide 29
BUN 32 H
Creatinine 1.0
Glucose 100 H
Calcium 8.6
Vital Signs:
Vital Signs
Temp Pulse Resp BP Pulse Ox
97.6 F 69 20 124/59 95
10/02/24 08:04 10/02/24 08:04 10/02/24 08:04 10/02/24 08:04 10/02/24 08:04
I&O
10/01/24 10/02/24 10/03/24
06:59 06:59 06:59
Intake Total 1200 / 1200 1347 / 1347
Output Total 600 / 600
Balance 600 / 600 1347 / 1347
--- NOTE | 2024-10-02 10:37 | W.PN.CD ---
Addendum entered and electronically signed by Yahir Leger MD 10/02/24 12:08:
I saw and examined the patient.
The BRINE TANK TENDER's note was reviewed and I agree with the note.
Comment: he is feeling well. He is in NSR. He isn't interested in reloading tikosyn at this time. rrr normal s1s2 lungs cta. No need to reinitiate tikosyn at this time. Will arrange op follow up. Ok to dc.
Original Note:
Today's Communication / Plan
-
EKG
He declined reinitiation of dofetilide
Impression / Plan
-
I/P: 84M with persistent atrial fibrillation (PVI 05/06/2020) and recurrent started on dofetilide, GI bleed s/p watchman (07/2020) off apixaban and on ASA, first-degree block, LAFB, left carotid artery stenosis s/p CEA 10/2023 (Dr. Mina), midly
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 He was admitted with an HUNTER and his dofetilide was stopped.
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 Rueda
Persistent atrial fibrillation
- Stable in sinus rhythm, we discussed resumption of dofetilide would require an additional 3 days of hospital stay, he is not interested
- Dofetilide stopped this admission due to HUNTER (creatinine peaked at 6.9 on 09/18/2024), he required hemodialysis, he also had a prolonged QT on admission
- s/p PVI 04/2020
- Oral anticoagulation: Watchman 07/2020 (recurrent GIB), on ASA
- EBC2LT8 VASc score is 4.
HTN, BP stable, medicatons on hold due to HUNTER which has resolved
Septic shock due to acute enterocolitis with Salmonella bacteremia, complicated by ileus, completed 14 days of intravenous ceftriaxone
HUNTER, prerenal, no HD since 09/24/2024, resolved
Thrombocytopenia, HIT panel negative, secondary to sepsis, now back on ASA
PAD s/p left CEA, on ASA, rosuvastatin, and Zetia, followed by Dr. Mina
Dyslipidemia, LDL at goal on rosuvastatin and Zetia
Physical Exam
Vital Signs/Labs
Vital Signs
Temp Pulse Resp BP Pulse Ox
97.6 F 69 20 124/59 95
10/02/24 08:04 10/02/24 08:04 10/02/24 08:04 10/02/24 08:04 10/02/24 08:04
10/01/24 10/02/24 10/03/24
06:59 06:59 06:59
Actual Weight 80.286 kg 80.314 kg
09/30/24 06:17
10/02/24 07:39
Magnesium 1.7 mg/dl (1.6-2.3) 10/02/24 07:39
Triglycerides 225 mg/dl (10-149) H 09/23/24 05:27
Physical Exam
Constitutional: No acute distress and Comfortable
EENT: Anicteric and Moist mucous membranes
Cardiovascular: Rhythm & rate is regular, Pedal edema is absent and S1S2 is normal
Respiratory: Respiratory effort normal and Lungs clear to auscul.
GI: Soft, Distention absent, Flat, Non tender and Normal bowel sounds
Neuro/Psych: AO x 3
Other: Skin (warm and dry)
Data Reviewed
-
Date of Service: October 02, 2024
EKG: Ordered by me
Labs: Labs Reviewed by me
Old Records: Reviewed
--- NOTE | 2024-10-02 10:54 | W.DCSUMMARY ---
Discharge Summary
Discharge Data
Date of Admission: 09/14/24
Date of Discharge: 10/02/24
-
Pending Results: No
Hospital Course
Discharge diagnosis:
Septic shock
Acute Salmonella enterocolitis
Salmonella bacteremia
Acute kidney injury requiring hemodialysis
Ileus post severe enterocolitis
Non-anion gap metabolic acidosis
Hypokalemia
Hypophosphatemia
Hypomagnesemia
Paroxysmal atrial fibrillation
Thrombocytopenia
Gastroesophageal reflux disease
Consults: Music Artist, ID, nephrology, cardiology, general surgery, GI
CT abdomen and pelvis:
Fluid attenuation in the colon most in keeping with a diarrheal illness. No other acute inflammatory process in the abdomen or pelvis within the limitations of the lack of oral and intravenous contrast.
Hospital course:
84-year-old male with a past medical history of paroxysmal atrial fibrillation status post Watchman device, carotid artery stenosis status post CEA, stroke, hypertension, hyperlipidemia, and GERD who was admitted for septic shock secondary to acute
Salmonella enterocolitis and Salmonella bacteremia. Patient was seen in conjunction with the archery equipment hay sorter, ID, and GI. He was treated with vancomycin and cefepime initially, and then completed a full course of IV Rocephin. He required pressors in
the ICU. Eventually, he was able to be weaned off of pressors, and transferred out of the ICU.
Patient's hospital course was complicated by acute kidney injury requiring hemodialysis. He was seen in conjunction with nephrology, and received dialysis 3 times a week.
Patient has a history of paroxysmal atrial fibrillation status post Watchman device. He was seen in conjunction with cardiology. Tikosyn was discontinued secondary to his HUNTER. He was in normal sinus rhythm prior to discharge. Cardiology states
he can remain off of his Tikosyn, and recommends outpatient follow-up.
Patient had thrombocytopenia, likely due to his sepsis. His HIT panel was negative.
Patient also had post enterocolitis ileus. He was seen in conjunction with general surgery. He was treated with bowel rest, IV fluids. He also received a course of TPN.
After a prolonged hospital course, his ileus resolved. He tolerated a diet. His TPN was discontinued. He had full renal recovery. His creatinine normalized, and he no longer needed dialysis.
He had hypokalemia, hypophosphatemia, and hypomagnesemia. These abnormalities were repleted, and resolved.
Patient was seen by PT, who recommended home PT. He is medically stable for discharge. He needs to follow-up with his primary care doctor in 1 week, and cardiology in the office as directed.
Disposition: Home with home care
Discharge planning: Required 40 min
Discharge Plan
-
Patient Disposition: Home (Routine Discharge)
Discharge Diagnosis/Procedures: Salmonella gastroenteritis, bacteremia, acute kidney failure requiring dialysis, ileus
Condition: Good
Diet: Low Fiber
Activity: As tolerated
Driving Restrictions: As prior to admission
Other Services: VN and PT
Activity Restrictions/Additional Instructions:
Your blood pressure is acceptable off of lisinopril and amlodipine.
Please follow-up with your PCP in less than 1 week.
Referrals:
Carol Jerry NP [Specified Professional Personl, Cardiology] - 11/01/24 9:40 am
Lzia Estrella PA-C [Family Provider, Family Practice] - in less than 1 week
Prescriptions:
Continued
pantoprazole 40 MG tablet,delayed release (DR/EC)
40 mg PO Daily Qty: 90 3RF
ezetimibe [Zetia] 10 mg Tablet
10 mg PO DAILY
rosuvastatin 40 mg Tablet
40 mg PO DAILY Qty: 30 0RF
aspirin 81 mg Tablet,Chewable
81 mg PO DAILY
acetaminophen [Tylenol] 325 mg Tablet
650 mg PO Q6HPRN PRN (Reason: mild pain)
Discontinued
dofetilide 500 mcg Capsule
500 mcg PO Q12 Qty: 60 3RF
amlodipine [Norvasc] 10 mg Tablet
10 mg PO DAILY
loperamide-simethicone 2-125 mg Tablet
1 tab PO Q6HPRN PRN (Reason: diarrhea)
lisinopril 40 mg Tablet
40 mg PO DAILY
Discharge Orders:
Discharge Patient (As Directed); Ordered 10/02/24
Ordered By: Jarvis Bravo
Discharge Date and Time
Discharge Date/Time: 10/02/24 14:14
Print Language: DANISH
[2024-10-02 11:48] VITALS: BP 140/70; BP 142/81; PULSE 76; O2SAT 97
[2024-10-02 11:51] LABS: Glucose - Point of Care 73 mg/dl (70-99)
--- NOTE | 2024-10-02 13:35 | W.PN.NEPH.PH ---
Today's Communication / Plan
-
d.c plan
Assessment/Plan
-
84-year-old male past medical history of carotid stenosis, prior CVA, hypertension, hyperlipidemia, basal cell carcinoma, atrial fibrillation, GERD, presenting with predominantly diarrhea and some vomiting starting 2 days ago.
Renal consultation for acute kidney injury creatinine of 4 on admission increased to 5.3
Hypotensive on admission with some improvement with IV fluids
Impression.
Acute kidney injury creatinine 5.3, but normal baseline
Diarrhea enteritis
hypokalemia secondary to diarrhea.
Atrial fibrillation.
thrombocytopenia
Plan.
tolerating regular diet
diarrhea resolving
stable kidney function cr 1, d/c HD catheter
d/c plan
suggest BMP in 1week and f/u PCP
-
-
Date of Service: October 02, 2024
CC / HPI / ROS
-
Chief Complaint:
Diarrhea
History of Present Illness:
GI losses improving
Hemodynamically more stable
HUNTER/Cr down to 1.
last HD 09/24
Review of Systems:
no CP/SOB
nonoliguric
diarrhea resolving
Labs
-
Labs:
WBC 5.3 10^3/uL (4.8-10.8) 09/30/24 06:17
RBC 4.03 10^6/uL (4.70-6.10) L 09/30/24 06:17
Hgb 12.5 g/dL (13.0-18.0) L 09/30/24 06:17
Hct 35.2 % (39.0-52.0) L 09/30/24 06:17
Plt Count 166 10^3/uL (130-400) 09/30/24 06:17
Sodium 140 mmol/L (135-145) 10/02/24 07:39
Potassium 5.1 mmol/L (3.5-5.1) D 10/02/24 07:39
Chloride 103 mmol/L (98-107) 10/02/24 07:39
Carbon Dioxide 29 mmol/L (22-30) 10/02/24 07:39
BUN 32 mg/dl (9-20) H 10/02/24 07:39
Creatinine 1.0 mg/dL (0.7-1.3) 10/02/24 07:39
eGFR > 60.00 10/02/24 07:39
Glucose 100 mg/dl (70-99) H 10/02/24 07:39
Calcium 8.6 mg/dl (8.4-10.2) 10/02/24 07:39
Phosphorus 4.5 mg/dl (2.5-4.5) 10/02/24 07:39
Albumin Cancelled 09/22/24 10:42
Physical Exam
-
Vital Signs:
Vital Signs
Temp Pulse Resp BP Pulse Ox
97.6 F 69 20 124/59 95
10/02/24 08:04 10/02/24 08:04 10/02/24 08:04 10/02/24 08:04 10/02/24 08:04
Cardiovascular:: Regular rate and rhythm
Respiratory:: Bilateral: CTA
Lung Excursion:: Normal
Abdomen:: Nontender and Soft
Bowel Sounds:: Normal
Extremity Edema:: None: Bilateral:
Mina Catheter: No
[2024-10-02 13:43] VITALS: BP 140/77
== END 2024-10-02 14:14 | disposition home or self-care (01) | DRG 871 ==
LOC: 3 WEST ACU 01:13
PROVIDERS: Emergency Medicine; Internal Medicine; Nurse Practitioner Family; Radiology Vascular & Interventional Radiology; Registered Nurse; Specialist; Student in an Organized Health Care Education/Training Program; ADMITTING PHYSICIAN Hospitalist; ATTENDING PHYSICIAN Family Medicine; CONSULT PHYSICIAN Internal Medicine Cardiovascular Disease; CONSULT PHYSICIAN Internal Medicine Infectious Disease; EMERGENCY PHYSICIAN Emergency Medicine; FAMILY PHYSICIAN Physician Assistant Medical; OTHER PHYSICIAN Internal Medicine Critical Care Medicine; OTHER PHYSICIAN Internal Medicine Nephrology; OTHER PHYSICIAN Surgery
PROC: 05HM33Z Insertion of Infusion Device into Right Internal Jugular Vein, Percutaneous Approach (ICD-10-PCS; 2024-09-15)
PROC: B5131ZA Fluoroscopy of Right Jugular Veins using Low Osmolar Contrast, Guidance (ICD-10-PCS; 2024-09-15)
PROC: 5A1D70Z Performance of Urinary Filtration, Intermittent, Less than 6 Hours Per Day (ICD-10-PCS; 2024-09-16)
DX: A02.1 Salmonella sepsis (principal); R65.21 Severe sepsis with septic shock; A02.0 Salmonella enteritis; K56.7 Ileus, unspecified; N17.9 Acute kidney failure, unspecified; E87.20 Acidosis, unspecified; I48.19 Other persistent atrial fibrillation; D69.6 Thrombocytopenia, unspecified; E87.6 Hypokalemia; E83.39 Other disorders of phosphorus metabolism; Z86.73 Personal history of transient ischemic attack (TIA), and cerebral infarction without residual deficits; K21.9 Gastro-esophageal reflux disease without esophagitis; E78.00 Pure hypercholesterolemia, unspecified; I10 Essential (primary) hypertension; Z85.828 Personal history of other malignant neoplasm of skin; E83.42 Hypomagnesemia; Z87.891 Personal history of nicotine dependence; Z79.82 Long term (current) use of aspirin; I49.3 Ventricular premature depolarization; Z96.653 Presence of artificial knee joint, bilateral; Z95.818 Presence of other cardiac implants and grafts; Z82.49 Family history of ischemic heart disease and other diseases of the circulatory system; Z80.9 Family history of malignant neoplasm, unspecified; K44.9 Diaphragmatic hernia without obstruction or gangrene; Z79.01 Long term (current) use of anticoagulants; Z79.899 Other long term (current) drug therapy
CPT/HCPCS: 36556; 51798; 71045; 74018; 74019; 74176; 76937; 77002; 80048; 80053; 81003; 81015; 82010; 82330; 82805; 82962; 83036; 83735; 84100; 84134; 84478; 85025; 85027; 86022; 86704; 86706; 86803; 87040; 87045; 87046; 87077; 87154; 87184; 87186; 87205; 87324; 87340; 87427; 87449; 87798; 93005; 96361; 96374; 97116; 97163; 97167; 97530; 99285; C1752; G0257; P9047

== ENCOUNTER → 2024-10-22 06:35 | Outpatient (REF) | payer MEDICARE, OTHER, SELFPAY ==
[2024-10-22 07:46] LABS: Hematocrit 36.6 % (39.0-52.0); Hemoglobin 12.7 g/dL (13.0-18.0); Mean Corp Hgb Conc. 34.7 g/dL (33.0-37.0); Mean Corpuscular Volume 86.9 fL (80.0-94.0); Nucleated Red Blood Cells % 0 % (-); Platelet Count 199 10^3/uL (130-400); Red Cell Dist. Width 13.2 % (11.5-14.5)
[2024-10-22 08:31] LABS: AST (SGOT) 26 U/L (17-59); Blood Urea Nitrogen 18 mg/dl (9-20); Chloride 109 mmol/L (98-107); Glucose 92 mg/dl (70-99); Iron 138 ug/dl (49-181); Potassium 3.5 mmol/L (3.5-5.1); Sodium 142 mmol/L (135-145); Total Protein 6.8 g/dl (6.3-8.2); eGFR > 60.00
[2024-10-22 08:40] LABS: Total Iron Binding Capacity 271 ug/dl (261-462)
[2024-10-22 08:48] LABS: ALT (SGPT) 28 U/L (0-50); Albumin 4.2 g/dl (3.5-5.0); Alkaline Phosphatase 68 U/L (38-126); Calcium 9.3 mg/dl (8.4-10.2); Carbon Dioxide 25 mmol/L (22-30)
[2024-10-22 09:03] LABS: Ferritin 162.0 ng/ml (17.9-464.0)
== END ==
LOC: REG 06:35
PROVIDERS: ATTENDING PHYSICIAN Physician Assistant
DX: Z09 Encounter for follow-up examination after completed treatment for conditions other than malignant neoplasm (principal); Z86.19 Personal history of other infectious and parasitic diseases; Z87.448 Personal history of other diseases of urinary system; A02.1 Salmonella sepsis; I44.4 Left anterior fascicular block
CPT/HCPCS: 36415; 80053; 82728; 83540; 83550; 85025

== ENCOUNTER → 2024-12-06 06:39 | Outpatient (REF) | payer MEDICARE, OTHER, SELFPAY ==
[2024-12-06 07:29] LABS: Hematocrit 37.6 % (39.0-52.0); Hemoglobin 12.8 g/dL (13.0-18.0); Mean Corp Hgb Conc. 34.0 g/dL (33.0-37.0); Mean Corpuscular Volume 89.7 fL (80.0-94.0); Nucleated Red Blood Cells % 0 % (-); Platelet Count 184 10^3/uL (130-400); Red Cell Dist. Width 14.1 % (11.5-14.5)
[2024-12-06 08:02] LABS: Blood Urea Nitrogen 21 mg/dl (9-20); Calcium 10.1 mg/dl (8.4-10.2); Carbon Dioxide 27 mmol/L (22-30); Chloride 109 mmol/L (98-107); Glucose 95 mg/dl (70-99); Potassium 4.1 mmol/L (3.5-5.1); Sodium 143 mmol/L (135-145); eGFR > 60.00
== END ==
LOC: RCS 06:39
PROVIDERS: ATTENDING PHYSICIAN Internal Medicine; FAMILY PHYSICIAN Physician Assistant; REFERRING PHYSICIAN Nurse Practitioner
DX: I48.19 Other persistent atrial fibrillation (principal); I77.810 Thoracic aortic ectasia; I35.8 Other nonrheumatic aortic valve disorders; I10 Essential (primary) hypertension; D64.9 Anemia, unspecified
CPT/HCPCS: 36415; 80048; 85025; 93306

== ENCOUNTER → 2025-02-28 06:22 | Outpatient (REF) | payer MEDICARE, OTHER, SELFPAY | LOC: RAD 06:22 | PROVIDERS: ATTENDING PHYSICIAN Registered Nurse; FAMILY PHYSICIAN Physician Assistant Medical | DX: I65.22 Occlusion and stenosis of left carotid artery (principal) | CPT/HCPCS: 93880 ==